=== PATIENT | female | born 1975 | race American Indian/Alaskan Native ===

== ENCOUNTER 2017-06-09 12:36 | Emergency (ER) | payer MEDICAID, OTHER ==
--- NOTE | 2017-06-09 13:14 | CR ---
Clinical history: 41-year-old female complaining of chest pain. Interpretation: Upright AP portable chest film unremarkable. (Less than optimal inspiratory effort this obese female with external equipment monitor phototypesetting leads) Normal cardiac silhouette without alveolar edema or dependent pleural effusion. No new lung mass, hilar lymphadenopathy or focal lobar pneumonia when compared to previous CT scan ch est August 2016. No atelectasis/collapse. No pneumothorax or free subdiaphragmatic air. CONCLUSION: No acute cardiopulmonary abnormality.
[2017-06-09 13:23] LABS: CHLORIDE,CL 103 mmol/L (101-111); SODIUM,NA 138 mmol/L (135-145)
[2017-06-09] MEDS ORDERED: GI Cocktail Oral Solution 30 ML PO ONE (13:41)
--- NOTE | 2017-06-09 14:02 | EDM.PDOC ---
ED HPI GENERAL MEDICAL PROBLEM - General Chief Complaint: Chest Pain Stated Complaint: CHEST PAIN,CAME BY AMBULANCE Time Seen by Provider: 06/09/17 12:42 Source of Information: Reports: Patient, EMS, EMS Notes Reviewed, RN, RN Notes Reviewed History Limitations: Reports: No Limitations - History of Present Illness INITIAL COMMENTS - FREE TEXT/NARRATIVE: Pt presents to the ER per [facility] from [facility]. She states she had chest pain that began last evening. She states this morning her left arm felt heavy and had some pain. Today she continues with the chest pain and went to the clinic to be evaluated. Provider from [facility] stated the patient has ST elevation, that she has received ASA 324 and Nitroglycerin. EMS states giving a second Nitro on the way to the hospital. Pt states a 4/10 sternal chest pain at this time. She denies radiation to the jaw. She denies fever or diarrhea. States she has had chills at times. She admits to a sore throat as she has started with a head cold recently. She states history of DM treated with insulin, as well as HTN treated with Losartan. Onset: Sudden Onset Date: 06/08/17 Duration: Intermittent Location: Reports: Chest Quality: Reports: Pressure Severity: Moderate Improves with: Reports: Medication (NITRO) Worsens with: Reports: None Associated Symptoms: Reports: No Other Symptoms Treatments INVENTORY MANAGEMENT SPECIALIST: Reports: Aspirin - Related Data Allergies Allergy/AdvReac Type Severity Reaction Status Date / Time Sulfa (Sulfonamide Allergy Hives Verified 07/15/16 17:39 Antibiotics) Home Meds: Home Meds Aspirin [Ecotrin] 1 tab PO DAILY 10/29/14 [History] Insulin Detemir [Levemir] 30 units SQ DAILY 10/29/14 [History] metFORMIN [Glucophage] 1 tab PO DAILY 10/29/14 [History] Past Medical History HEENT History: Reports: Impaired Vision Cardiovascular History: Reports: Hypertension Gastrointestinal History: Reports: Other (See Below) Genitourinary History: Reports: Diabetic Nephropathy 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: Musculoskeletal History: Reports: Other (See Below) Endocrine/Metabolic History: Reports: Diabetes, Type II - Infectious Disease History Infectious Disease History: Reports: Chicken Pox - Past Surgical History HEENT Surgical History: Reports: Detached Retina, Eye Surgery GI Surgical History: Reports: Cholecystectomy Social & Family History - Family History Family Medical History: Noncontributory - Tobacco Use Smoking Status *Q: Current Some Day Smoker Years of Tobacco use: 20 Packs/Tins Daily: 0.1 Second Hand Smoke Exposure: Yes - Caffeine Use Caffeine Use: Reports: Soda, Tea - Alcohol Use Days Per Week of Alcohol Use: 0 - Recreational Drug Use Recreational Drug Use: No - Living Situation & Occupation Living situation: Reports: Single Occupation: Unemployed ED ROS GENERAL - Review of Systems Review Of Systems: ROS reveals no pertinent complaints other than HPI. ED EXAM, GENERAL - Physical Exam Exam: See Below Exam Limited By: No Limitations General Appearance: Alert, WD/WN, No Apparent Distress Eye Exam: Bilateral Eye: EOMI, Normal Inspection Ears: Normal External Exam, Hearing Grossly Normal Nose: Normal Inspection Throat/Mouth: Normal Inspection, Normal Voice, No Airway Compromise Head: Atraumatic, Normocephalic Neck: Normal Inspection, Supple, Non-Tender, Full Range of Motion Respiratory/Chest: No Respiratory Distress, Lungs Clear, Normal Breath Sounds, No Accessory Muscle Use, Chest Non-Tender Cardiovascular: Normal Peripheral Pulses, Regular Rate, Rhythm, No Edema, No Gallop, No JVD, No Murmur, No Rub Peripheral Pulses: 2+: Brachial (L), Brachial (R) GI/Abdominal: Normal Bowel Sounds, Soft, Non-Tender, No Organomegaly, No Distention, No Abnormal Bruit, No Mass (Female) Exam: Deferred Rectal (Female) Exam: Deferred Back Exam: Normal Inspection, Full Range of Motion Extremities: Normal Inspection, Normal Range of Motion, Non-Tender, No Pedal Edema, Normal Capillary Refill Neurological: Alert, Oriented, Normal Cognition, No Motor/Sensory Deficits Psychiatric: Normal Affect, Normal Mood Skin Exam: Warm, Dry, Intact, Normal Color, No Rash Lymphatic: No Adenopathy EKG INTERPRETATION EKG Date: 06/09/17 Rhythm: NSR [place]: Normal P-Wave: Present QRS: Normal ST-T: Normal QT: Normal Comparison: NA - No Prior EKG Course - Vital Signs Last Recorded V/S: Last Vital Signs Temp 97.8 F 06/09/17 17:22 Pulse 80 06/09/17 17:22 Resp 15 06/09/17 17:22 BP 182/90 H 06/09/17 17:22 Pulse Ox 98 06/09/17 17:22 - Orders/Labs/Meds Orders: Active Orders 24 hr Category Date Time Status EKG Documentation Completion [RC] ROUTINE Care 06/09/17 16:45 Active EKG Documentation Completion [RC] STAT Care 06/09/17 12:32 Active CULTURE URINE [RM] Stat Lab 06/09/17 14:21 Uncollected Labs: Laboratory Tests 06/09/17 06/09/17 06/09/17 Range/Units 12:48 12:48 13:22 WBC 8.6 (5.0-10.0) 10^3/uL RBC 4.09 L (4.2-5.4) 10^6/uL Hgb 11.2 L (12.0-16.0) g/dL Hct 34.3 L (37.0-47.0) % MCV 83.9 (80-100) fL MCH 27.4 (27.0-34.0) pg MCHC 32.7 L (33.0-35.0) g/dL Plt Count 342 (150-450) 10^3/uL Neut % (Auto) 64.4 (42.2-75.2) % Lymph % (Auto) 28.9 (20.5-50.1) % [place] % (Auto) 5.4 (2-8) % Eos % (Auto) 1.1 (1.0-3.0) % Baso % (Auto) 0.2 (0.0-1.0) % Sodium 138 D (135-145) mmol/L Potassium 3.9 (3.6-5.0) mmol/L Chloride 103 (101-111) mmol/L Carbon Dioxide 25.0 (21.0-31.0) mmol/L Anion Gap 13.9 BUN 15 (7-18) mg/dL Creatinine 0.7 (0.6-1.3) mg/dL Est Cr Clr Drug Dosing 106.69 mL/min Estimated GFR (MDRD) > 60 BUN/Creatinine Ratio 21.42 Glucose 172 H (74-105) mg/dL Calcium 9.1 (8.4-10.2) mg/dl Total Bilirubin 0.3 (0.2-1.0) mg/dL AST 19 (10-42) IU/L ALT 16 (10-60) IU/L Alkaline Phosphatase 92 (42-121) IU/L Troponin I < 0.02 (0.00-0.02) ng/ml Total Protein 7.1 (6.7-8.2) g/dl Albumin 2.7 L (3.2-5.5) g/dl Globulin 4.4 Albumin/Globulin Ratio 0.61 Urine Color (YELLOW) Urine Appearance (CLEAR) Urine pH (5.0-9.0) Ur Specific [place] (1.005-1.030) Urine Protein (NEGATIVE) Urine Glucose (UA) (NEGATIVE) Urine Ketones (NEGATIVE) Urine Occult Blood (NEGATIVE) Urine Nitrite (NEGATIVE) Urine Bilirubin (NEGATIVE) Urine Urobilinogen (0.2-1.0) mg/dL Ur Leukocyte Esterase (NEGATIVE) Urine RBC /HPF Urine WBC (0-5/HPF) /HPF Ur Epithelial Cells /HPF Urine Bacteria (0-FEW/HPF) /HPF Urine HCG, Qual Negative Urine Opiates Screen (NEGATIVE) Ur Oxycodone Screen (NEGATIVE) Urine Methadone Screen (NEGATIVE) Ur Barbiturates Screen (NEGATIVE) U Tricyclic Antidepress (NEGATIVE) Ur Phencyclidine Scrn (NEGATIVE) Ur Amphetamine Screen (NEGATIVE) U Methamphetamines Scrn (NEGATIVE) Urine MDMA Screen (NEGATIVE) U Benzodiazepines Scrn (NEGATIVE) Urine Cocaine Screen (NEGATIVE) U Marijuana (THC) Screen (NEGATIVE) 06/09/17 06/09/17 06/09/17 Range/Units 13:22 13:22 17:10 WBC (5.0-10.0) 10^3/uL RBC (4.2-5.4) 10^6/uL Hgb (12.0-16.0) g/dL Hct (37.0-47.0) % MCV (80-100) fL MCH (27.0-34.0) pg MCHC (33.0-35.0) g/dL Plt Count (150-450) 10^3/uL Neut % (Auto) (42.2-75.2) % Lymph % (Auto) (20.5-50.1) % [place] % (Auto) (2-8) % Eos % (Auto) (1.0-3.0) % Baso % (Auto) (0.0-1.0) % Sodium (135-145) mmol/L Potassium (3.6-5.0) mmol/L Chloride (101-111) mmol/L Carbon Dioxide (21.0-31.0) mmol/L Anion Gap BUN (7-18) mg/dL Creatinine (0.6-1.3) mg/dL Est Cr Clr Drug Dosing mL/min Estimated GFR (MDRD) BUN/Creatinine Ratio Glucose (74-105) mg/dL Calcium (8.4-10.2) mg/dl Total Bilirubin (0.2-1.0) mg/dL AST (10-42) IU/L ALT (10-60) IU/L Alkaline Phosphatase (42-121) IU/L Troponin I < 0.02 (0.00-0.02) ng/ml Total Protein (6.7-8.2) g/dl Albumin (3.2-5.5) g/dl Globulin Albumin/Globulin Ratio Urine Color Light yellow (YELLOW) Urine Appearance Slightly cloudy (CLEAR) Urine pH 6.5 (5.0-9.0) Ur Specific [place] 1.015 (1.005-1.030) Urine Protein >=300 H (NEGATIVE) Urine Glucose (UA) 100 H (NEGATIVE) Urine Ketones Negative (NEGATIVE) Urine Occult Blood Small H (NEGATIVE) Urine Nitrite Negative (NEGATIVE) Urine Bilirubin Negative (NEGATIVE) Urine Urobilinogen 0.2 (0.2-1.0) mg/dL Ur Leukocyte Esterase Small H (NEGATIVE) Urine RBC 0-5 /HPF Urine WBC Semi-packed H (0-5/HPF) /HPF Ur Epithelial Cells Few /HPF Urine Bacteria Few (0-FEW/HPF) /HPF Urine HCG, Qual Urine Opiates Screen Negative (NEGATIVE) Ur Oxycodone Screen Negative (NEGATIVE) Urine Methadone Screen Negative (NEGATIVE) Ur Barbiturates Screen Negative (NEGATIVE) U Tricyclic Antidepress Negative (NEGATIVE) Ur Phencyclidine Scrn Negative (NEGATIVE) Ur Amphetamine Screen Negative (NEGATIVE) U Methamphetamines Scrn Negative (NEGATIVE) Urine MDMA Screen Negative (NEGATIVE) U Benzodiazepines Scrn Negative (NEGATIVE) Urine Cocaine Screen Negative (NEGATIVE) U Marijuana (THC) Screen Negative (NEGATIVE) Meds: Medications Discontinued Medications Generic Name Dose Route Start Last Admin Trade Name Freq PRN Reason Stop Dose Admin Al Hydroxide/Mg Hydroxide 30 ml 06/09/17 13:41 06/09/17 14:46 Gi Cocktail PO 06/09/17 13:42 30 ml ONETIME ONE Administration - Radiology Interpretation Free Text/Narrative:: Chest x-ray: No acute findings See rad report Departure - Departure Time of Disposition: 18:19 Disposition: Home, Self-Care 01 Clinical Impression: Non-cardiac chest pain Diabetes mellitus type II, uncontrolled Qualifiers: Diabetes mellitus complication status: with skin complications Diabetes mellitus complication detail: with other skin complication 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 insulin use: with terminal operations supervisor use Qualified Code(s): E11.628 - Type 2 diabetes mellitus with other skin complications Urinary tract infection Qualifiers: Urinary tract infection type: site unspecified Hematuria presence: with hematuria Qualified Code(s): N39.0 - Urinary tract infection, site not specified Instructions: Urinary Tract Infection, Adult, Nonspecific Chest Pain, Easy-to- Read Referrals: Jose Conde [Primary Care Provider] - Forms: ED Department Discharge Additional Instructions: RX: Macrobid x 5 days - My Orders Last 24 Hours: My Active Orders 06/09/17 12:32 EKG Documentation Completion [RC] STAT 06/09/17 14:21 CULTURE URINE [RM] Stat 06/09/17 16:45 EKG Documentation Completion [RC] ROUTINE - Assessment/Plan Last 24 Hours: My Active Orders 06/09/17 12:32 EKG Documentation Completion [RC] STAT 06/09/17 14:21 CULTURE URINE [RM] Stat 06/09/17 16:45 EKG Documentation Completion [RC] ROUTINE
[2017-06-09 17:23] VITALS: BP 182/90
--- NOTE | 2017-06-18 13:21 | EKG ---
06/09/2017 - BEN JUAREZ - TIME: 12:40 FINDINGS: EKG per my reading shows sinus rhythm at the rate of 81. [facility] /[id number]
--- NOTE | 2017-06-18 13:24 | EKG ---
06/09/2017 - BEN JUAREZBEAR - TIME: 1145 hours. EKG per my reading shows sinus rhythm at the rate of 82. [facility] /[id number]
== END 2017-06-09 19:00 | disposition home or self-care (01) ==
LOC: DL.ED 12:36 → EEVIPCON 12:36 → DL.ED 19:00
DX: R07.89 Other chest pain (principal); E11.628 Type 2 diabetes mellitus with other skin complications; N39.0 Urinary tract infection, site not specified; E11.21 Type 2 diabetes mellitus with diabetic nephropathy; I10 Essential (primary) hypertension; F17.210 Nicotine dependence, cigarettes, uncomplicated; Z79.4 Long term (current) use of insulin; Z79.82 Long term (current) use of aspirin; Z88.2 Allergy status to sulfonamides
CPT/HCPCS: 36415; 71010; 80053; 80305; 81001; 81025; 84484; 85025; 99285; A9270

== ENCOUNTER 2017-07-23 10:37 | Emergency (ER) | payer MEDICAID, OTHER ==
--- NOTE | 2017-07-23 10:53 | EDM.PDOC ---
ED HPI GENERAL MEDICAL PROBLEM - General Chief Complaint: Lower Extremity Injury/Pain Stated Complaint: CAME BY AMBULANCE Time Seen by Provider: 07/23/17 10:51 Source of Information: Reports: Patient, EMS, Old Records, RN, RN Notes Reviewed History Limitations: Reports: No Limitations - History of Present Illness INITIAL COMMENTS - FREE TEXT/NARRATIVE: Arrives by ambulance with c/o foot/heel pain. Today she felt a pop in the achilles area of the heel followed by immediate severe pain. Pt's heard a loud audible pop. Pt states she had just stepped out of the car and took about 3 steps when the pain occurred. She had seen a second time worker at [facility] last week and received a steroid injection in the hind foot for plantar fasciitis. Onset: Today, Sudden Duration: Constant Location: Reports: Lower Extremity, Left Quality: Reports: Ache Severity: Severe Improves with: Reports: None Worsens with: Reports: Movement (wt bearing/walking) Associated Symptoms: Reports: No Other Symptoms Left Feet Pain Score (Numeric/FACES): 9 - Related Data Allergies Allergy/AdvReac Type Severity Reaction Status Date / Time Sulfa (Sulfonamide Allergy Hives Verified 07/15/16 17:39 Antibiotics) Home Meds: Home Meds Aspirin [Ecotrin] 1 tab PO DAILY 10/29/14 [History] Insulin Detemir [Levemir] 50 units SQ DAILY 10/29/14 [History] metFORMIN [Glucophage] 1 tab PO DAILY 10/29/14 [History] Gabapentin [Neurontin] 1 tab PO TID 07/23/17 [History] Losartan [Cozaar] 1 tab PO DAILY 07/23/17 [History] Saxagliptin HCl [Onglyza] 1 tab PO DAILY 07/23/17 [History] atorvaSTATin [Lipitor] 1 tab PO DAILY 07/23/17 [History] Past Medical History HEENT History: Reports: Impaired Vision Cardiovascular History: Reports: Hypertension Gastrointestinal History: Reports: Other (See Below) Genitourinary History: Reports: Diabetic Nephropathy 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: Musculoskeletal History: Reports: Other (See Below) Endocrine/Metabolic History: Reports: Diabetes, Type II - Infectious Disease History Infectious Disease History: Reports: Chicken Pox - Past Surgical History HEENT Surgical History: Reports: Detached Retina, Eye Surgery GI Surgical History: Reports: Cholecystectomy Social & Family History - Family History Family Medical History: Noncontributory - Tobacco Use Smoking Status *Q: Current Some Day Smoker Years of Tobacco use: 20 Packs/Tins Daily: 0.1 Second Hand Smoke Exposure: Yes - Caffeine Use Caffeine Use: Reports: Soda, Tea - Alcohol Use Days Per Week of Alcohol Use: 0 - Recreational Drug Use Recreational Drug Use: No - Living Situation & Occupation Living situation: Reports: Single Occupation: Unemployed Review of Systems - Review of Systems Review Of Systems: ROS reveals no pertinent complaints other than HPI. ED EXAM, GENERAL - Physical Exam Exam: See Below Exam Limited By: No Limitations General Appearance: Alert, WD/WN, No Apparent Distress Throat/Mouth: Normal Inspection Head: Atraumatic, Normocephalic Neck: Normal Inspection Respiratory/Chest: No Respiratory Distress Cardiovascular: Regular Rate, Rhythm, No Edema Extremities: No Pedal Edema, Normal Capillary Refill, Limited Range of Motion ( left ankle with acute tenderness at left posterior calf to the heel) Neurological: Alert, Oriented, No Motor/Sensory Deficits Psychiatric: Normal Affect, Normal Mood Skin Exam: Warm, Dry, Intact, Normal Color, No Rash Course - Vital Signs Last Recorded V/S: Last Vital Signs Temp 36.3 C 07/23/17 12:29 Pulse 77 07/23/17 12:29 Resp 18 07/23/17 12:29 BP 159/80 H 07/23/17 12:29 Pulse Ox 94 L 07/23/17 12:29 - Orders/Labs/Meds Orders: Active Orders 24 hr Category Date Time Status Ice Pack [Ice Therapy] [OM.PC] Routine Oth 07/23/17 11:05 Ordered Labs: Laboratory Tests 07/23/17 07/23/17 Range/Units 11:10 12:19 POC Glucose 172 H (70-105) mg/dl Urine HCG, Qual Negative Meds: Medications Discontinued Medications Generic Name Dose Route Start Last Admin Trade Name Freq PRN Reason Stop Dose Admin Hydrocodone Bitart/Acetaminophen 1 tab 07/23/17 11:05 07/23/17 11:15 [place] 325-10 Mg PO 07/23/17 11:06 1 tab ONETIME ONE Administration - Radiology Interpretation Free Text/Narrative:: Xray left ankle: avulsion fx of posterior heel suspicious for achilles rupture; see Rad. report. CT left lower leg: similar finding to xray; see Rad. report. - Re-Assessments/Exams Free Text/Narrative Re-Assessment/Exam: 07/23/17 15:[address] Magaña via [facility] call. He advises anterior lower ext. splint with maximal plantar flexion and bulky soft padding, pt to be non-wt bearing, and f/u in clinic with him on Thursday07/27/17. Departure - Departure Time of Disposition: 15:05 Disposition: Home, Self-Care 01 Condition: Good Clinical Impression: Rupture of left Achilles tendon Qualifiers: Encounter type: initial encounter Qualified Code(s): S86.012A - Strain of left Achilles tendon, initial encounter Closed displaced fracture of left calcaneus Qualifiers: Encounter type: initial encounter Calcaneus location: body Qualified Code(s): S92.012A - Displaced fracture of body of left calcaneus, initial encounter for closed fracture - Discharge Information Instructions: Cast or Splint Care, [id number], Pain Medicine Instructions, [id number], Complete Achilles Tendon Rupture, Avulsion Fracture of the Foot Forms: ED Department Discharge Additional Instructions: Rest, and elevate left lower leg. Do not remove splint. No weight bearing on left foot, use crutches. Rx: Hydrocodone APAP 5mg/325mg *Do not drive while under the influence of this medication. Call [facility] [place] to schedule an appointment with Dr. Magaña for Thursday, Jul.27. Return to ER if any further problems. - My Orders Last 24 Hours: My Active Orders 07/23/17 11:05 Ice Pack [Ice Therapy] [OM.PC] Routine - Assessment/Plan Last 24 Hours: My Active Orders 07/23/17 11:05 Ice Pack [Ice Therapy] [OM.PC] Routine
[2017-07-23] MEDS ORDERED: Acetaminophen/HYDROcodone 325-10 MG Tab PO ONE (11:05)
--- NOTE | 2017-07-23 12:00 | CR ---
Clinical history: 41-year-old female posterior ankle pain (loud "pop" stepping out of car). Interpretation: Abnormal. Acute posterior calcaneal fracture. AP lateral plain films of the left ankle/foot confirm large bone fragment avulsed off the posterior c alcaneus and retracted proximally (overlying soft tissue swelling Achilles tendon). No associated fractures of the tib/fib or disruption of the tibiotalar mortise joint. No foreign bodies.
--- NOTE | 2017-07-23 14:11 | CT ---
Clinical history: 41-year-old female received a "plantar fascial injection" one week ago and now expe rienced severe pain with an audible "pop" posterior left heel, stepping out of car. Plain film eviden ce posterior calcaneal fracture left foot. Scan technique: Volume acquisition of data unenhanced CT scan of the lower extremities, both ankles a nd feet obtained while the patient was lying supine on the Siemens multi slice CT scanner [place], [place]. All data archived in the PAC system for storage, reformatting a nd study. Interpretation: 1. Achilles tendon appears to be intact and attached (unchanged when compared to contralateral normal heel), but.... 2. *Large bone fragment avulsed posteriorly (upper half of apophysis) off the os calcis and retracted approximately 1.5 cm cephalad. Donor site posteriorly body of the os calcis evident. 3. Proximal retraction (lateral images) but near anatomic alignment of this large fragment on the cor onal and AP images. 4. No sign of other fracture or dislocation of either foot, ankle or distal lower extremity. No forei gn bodies. No heel spurs.
[2017-07-23 15:17] VITALS: BP 163/92
== END 2017-07-23 15:37 | disposition home or self-care (01) ==
LOC: DL.ED 10:37
DX: S92.012A Displaced fracture of body of left calcaneus, initial encounter for closed fracture (principal); S86.012A Strain of left Achilles tendon, initial encounter; E11.21 Type 2 diabetes mellitus with diabetic nephropathy; I10 Essential (primary) hypertension; F17.210 Nicotine dependence, cigarettes, uncomplicated; Z79.4 Long term (current) use of insulin; Z79.82 Long term (current) use of aspirin; Z79.899 Other long term (current) drug therapy; Z88.2 Allergy status to sulfonamides; X50.9XXA Other and unspecified overexertion or strenuous movements or postures, initial encounter
CPT/HCPCS: 73600; 73700; 81025; 82962; 99284; A9270

== ENCOUNTER 2018-09-03 23:40 | Emergency (ER) | payer MEDICAID, OTHER ==
[2018-09-03] MEDS ORDERED: Sodium Chloride 0.9% 1,000 ML IV ONE (23:49)
[2018-09-03] MEDS ORDERED: Ondansetron 4 MG/2 ML SDV IV ONE (23:50)
--- NOTE | 2018-09-04 00:09 | EDM.PDOC ---
"ED HPI GENERAL MEDICAL PROBLEM - General Chief Complaint: General Stated Complaint: FLU Time Seen by Provider: 09/03/18 23:50 Source of Information: Reports: Patient History Limitations: Reports: No Limitations - History of Present Illness INITIAL COMMENTS - FREE TEXT/NARRATIVE: Chills and body aches since Thursday. Vomiting past 2 days, Unable to keep anything down today. loose watery stool tonight. No othre family members ill. Been in bed past 2 days. Left lower leg more swollen and sore on ankle where sock rubs. Remote hx ruptured achilles and some swelling usual. Blood sugars usual around 230. Treatments LEGAL INVESTIGATOR: Reports: Acetaminophen Left Lower Leg Pain Score (Numeric/FACES): 6 - Related Data Allergies Allergy/AdvReac Type Severity Reaction Status Date / Time Sulfa (Sulfonamide Allergy Hives Verified 09/03/18 23:54 Antibiotics) Home Meds: Home Meds Aspirin [Ecotrin] 1 tab PO DAILY 10/29/14 [History] Insulin Detemir [Levemir] 50 units SQ DAILY 10/29/14 [History] metFORMIN [Glucophage] 1 tab PO DAILY 10/29/14 [History] Gabapentin [Neurontin] 1 tab PO TID 07/23/17 [History] Losartan [Cozaar] 1 tab PO DAILY 07/23/17 [History] Saxagliptin HCl [Onglyza] 1 tab PO DAILY 07/23/17 [History] atorvaSTATin [Lipitor] 1 tab PO DAILY 07/23/17 [History] Past Medical History HEENT History: Reports: Cataract, Impaired Vision Other HEENT History: WEARS GLASSES Cardiovascular History: Reports: High Cholesterol, Hypertension Respiratory History: Reports: None Gastrointestinal History: Reports: GERD Genitourinary History: Reports: Chronic Renal Insuffiency, Diabetic Nephropathy PHYSICIAN OFFICE CLIN ASST History: Reports: Musculoskeletal History: Reports: None Neurological History: Reports: None Psychiatric History: Reports: None Endocrine/Metabolic History: Reports: Diabetes, Type II Hematologic History: Reports: Anemia Immunologic History: Reports: None Oncologic (Cancer) History: Reports: None Dermatologic History: Reports: None - Infectious Disease History Infectious Disease History: Reports: Chicken Pox, MRSA - Past Surgical History HEENT Surgical History: Reports: Detached Retina, Eye Surgery GI Surgical History: Reports: Cholecystectomy Female Surgical History: Reports: None Social & Family History - Family History Family Medical History: Noncontributory - Tobacco Use Smoking Status *Q: Current Some Day Smoker Years of Tobacco use: 20 Packs/Tins Daily: 3 - Caffeine Use Caffeine Use: Reports: Soda - Recreational Drug Use Recreational Drug Use: No - Living Situation & Occupation Living situation: Reports: Single Occupation: Unemployed ED ROS GENERAL - Review of Systems Review Of Systems: ROS reveals no pertinent complaints other than HPI. Constitutional: Reports: Chills, Malaise, Weakness HEENT: Reports: No Symptoms Respiratory: Reports: No Symptoms Cardiovascular: Reports: No Symptoms Endocrine: Reports: High Glucose GI/Abdominal: Reports: Diarrhea (x1), Decreased Appetite, Nausea, Vomiting : Reports: No Symptoms, Other (current menses) Musculoskeletal: Reports: Leg Pain (left lower) Skin: Reports: No Symptoms, Erythema, Wound (left lateral ankle) Neurological: Reports: No Symptoms ED EXAM, GENERAL - Physical Exam Exam: See Below Exam Limited By: No Limitations General Appearance: Alert, Moderate Distress Eye Exam: Bilateral Eye: EOMI Ears: Normal External Exam, Hearing Grossly Normal, Normal TMs Nose: Normal Inspection Throat/Mouth: Normal Lips, Normal Oropharynx, Other (parched mucus membranes) Head: Atraumatic, Normocephalic Neck: Normal Inspection Respiratory/Chest: No Respiratory Distress, Lungs Clear, Decreased Breath Sounds. No: Crackles, Rales, Rhonchi, Wheezing Cardiovascular: Normal Peripheral Pulses, Regular Rate, Rhythm. No: No Edema GI/Abdominal: Normal Bowel Sounds, Soft, Non-Tender Back Exam: Full Range of Motion, Paraspinal Tenderness, Vertebral Tenderness Extremities: Normal Inspection, Normal Range of Motion Neurological: Alert, Oriented, CN II-XII Intact, Normal Cognition, No Motor/ Sensory Deficits Psychiatric: Normal Affect Skin Exam: Warm, Dry, Intact, Normal Color Course - Vital Signs Last Recorded V/S: Last Vital Signs Temp 98.6 F 09/04/18 02:55 Pulse 96 09/04/18 02:55 Resp 18 09/04/18 02:55 BP 138/82 09/04/18 02:55 Pulse Ox 98 09/04/18 02:55 - Orders/Labs/Meds Orders: Active Orders 24 hr Category Date Time Status Blood Glucose Check, Bedside [RC] ONETIME Care 09/03/18 23:48 Active Glucose [Blood Glucose Check, Bedside] [RC] ONETIME Care 09/04/18 01:34 Active CXR [Chest 1V Frontal] [CR] Urgent Exams 09/04/18 00:32 Taken CULTURE BLOOD [BC] Stat Lab 09/04/18 00:47 Received Sodium Chloride 0.9% [Normal Saline] 1,000 ml Med 09/04/18 03:53 Ordered IV .BOLUS fentaNYL [Sublimaze] Med 09/04/18 05:03 Once 25 mcg IVPUSH ONETIME ONE Medication Orders Fentanyl (Sublimaze) 25 mcg IVPUSH ONETIME ONE Stop: 09/04/18 05:04 Sodium Chloride (Normal Saline) 1,000 mls @ 125 mls/hr IV .BOLUS ONE Stop: 09/04/18 11:52 Last Admin: 09/04/18 04:02 Dose: 125 mls/hr Labs: Laboratory Tests 09/03/18 09/03/18 09/03/18 Range/Units 23:46 23:59 23:59 WBC 16.4 H (5.0-10.0) 10^3/uL RBC 3.99 L (4.2-5.4) 10^6/uL Hgb 11.1 L (12.0-16.0) g/dL Hct 32.5 L (37.0-47.0) % MCV 81.5 (80-100) fL MCH 27.8 (27.0-34.0) pg MCHC 34.2 (33.0-35.0) g/dL Plt Count 246 D (150-450) 10^3/uL Neut % (Auto) 91.1 H (42.2-75.2) % Lymph % (Auto) 5.9 L (20.5-50.1) % [place] % (Auto) 2.9 (2-8) % Eos % (Auto) 0.0 L (1.0-3.0) % Baso % (Auto) 0.1 (0.0-1.0) % D-Dimer, Quantitative (0-400) ng/mL Sodium 129 L (135-145) mmol/L Potassium 3.3 L (3.6-5.0) mmol/L Chloride 95 L (101-111) mmol/L Carbon Dioxide 22.0 (21.0-31.0) mmol/L Anion Gap 15.3 BUN 27 H (7-18) mg/dL Creatinine 1.2 (0.6-1.3) mg/dL Est Cr Clr Drug Dosing 63.82 mL/min Estimated GFR (MDRD) 49 BUN/Creatinine Ratio 22.50 Glucose 318 H (74-105) mg/dL POC Glucose 313 H (70-105) mg/dl Lactic Acid (0.5-2.2) mmol/L Calcium 7.7 L (8.4-10.2) mg/dl Total Bilirubin 0.6 (0.2-1.0) mg/dL AST 34 (10-42) IU/L ALT 31 (10-60) IU/L Alkaline Phosphatase 101 (42-121) IU/L Total Protein 6.2 L (6.7-8.2) g/dl Albumin 1.6 L (3.2-5.5) g/dl Globulin 4.6 Albumin/Globulin Ratio 0.35 Amylase 17 L (28-100) U/L Lipase 23 (22-51) U/L HCG, Qual Urine Color (YELLOW) Urine Appearance (CLEAR) Urine pH (5.0-9.0) Ur Specific [place] (1.005-1.030) Urine Protein (NEGATIVE) Urine Glucose (UA) (NEGATIVE) Urine Ketones (NEGATIVE) Urine Occult Blood (NEGATIVE) Urine Nitrite (NEGATIVE) Urine Bilirubin (NEGATIVE) Urine Urobilinogen (0.2-1.0) mg/dL Ur Leukocyte Esterase (NEGATIVE) Urine RBC /HPF Urine WBC (0-5/HPF) /HPF Ur Epithelial Cells /HPF Amorphous Sediment (0/HPF) /HPF Urine Bacteria (0-FEW/HPF) /HPF Urine Mucus /LPF Ketones 09/03/18 09/04/18 09/04/18 Range/Units 23:59 01:25 01:25 WBC (5.0-10.0) 10^3/uL RBC (4.2-5.4) 10^6/uL Hgb (12.0-16.0) g/dL Hct (37.0-47.0) % MCV (80-100) fL MCH (27.0-34.0) pg MCHC (33.0-35.0) g/dL Plt Count (150-450) 10^3/uL Neut % (Auto) (42.2-75.2) % Lymph % (Auto) (20.5-50.1) % [place] % (Auto) (2-8) % Eos % (Auto) (1.0-3.0) % Baso % (Auto) (0.0-1.0) % D-Dimer, Quantitative 1650 H (0-400) ng/mL Sodium (135-145) mmol/L Potassium (3.6-5.0) mmol/L Chloride (101-111) mmol/L Carbon Dioxide (21.0-31.0) mmol/L Anion Gap BUN (7-18) mg/dL Creatinine (0.6-1.3) mg/dL Est Cr Clr Drug Dosing mL/min Estimated GFR (MDRD) BUN/Creatinine Ratio Glucose (74-105) mg/dL POC Glucose (70-105) mg/dl Lactic Acid 1.1 (0.5-2.2) mmol/L Calcium (8.4-10.2) mg/dl Total Bilirubin (0.2-1.0) mg/dL AST (10-42) IU/L ALT (10-60) IU/L Alkaline Phosphatase (42-121) IU/L Total Protein (6.7-8.2) g/dl Albumin (3.2-5.5) g/dl Globulin Albumin/Globulin Ratio Amylase (28-100) U/L Lipase (22-51) U/L HCG, Qual Negative Urine Color (YELLOW) Urine Appearance (CLEAR) Urine pH (5.0-9.0) Ur Specific [place] (1.005-1.030) Urine Protein (NEGATIVE) Urine Glucose (UA) (NEGATIVE) Urine Ketones (NEGATIVE) Urine Occult Blood (NEGATIVE) Urine Nitrite (NEGATIVE) Urine Bilirubin (NEGATIVE) Urine Urobilinogen (0.2-1.0) mg/dL Ur Leukocyte Esterase (NEGATIVE) Urine RBC /HPF Urine WBC (0-5/HPF) /HPF Ur Epithelial Cells /HPF Amorphous Sediment (0/HPF) /HPF Urine Bacteria (0-FEW/HPF) /HPF Urine Mucus /LPF Ketones Negative 09/04/18 09/04/18 Range/Units 02:58 04:33 WBC (5.0-10.0) 10^3/uL RBC (4.2-5.4) 10^6/uL Hgb (12.0-16.0) g/dL Hct (37.0-47.0) % MCV (80-100) fL MCH (27.0-34.0) pg MCHC (33.0-35.0) g/dL Plt Count (150-450) 10^3/uL Neut % (Auto) (42.2-75.2) % Lymph % (Auto) (20.5-50.1) % [place] % (Auto) (2-8) % Eos % (Auto) (1.0-3.0) % Baso % (Auto) (0.0-1.0) % D-Dimer, Quantitative (0-400) ng/mL Sodium (135-145) mmol/L Potassium (3.6-5.0) mmol/L Chloride (101-111) mmol/L Carbon Dioxide (21.0-31.0) mmol/L Anion Gap BUN (7-18) mg/dL Creatinine (0.6-1.3) mg/dL Est Cr Clr Drug Dosing mL/min Estimated GFR (MDRD) BUN/Creatinine Ratio Glucose (74-105) mg/dL POC Glucose 185 H (70-105) mg/dl Lactic Acid (0.5-2.2) mmol/L Calcium (8.4-10.2) mg/dl Total Bilirubin (0.2-1.0) mg/dL AST (10-42) IU/L ALT (10-60) IU/L Alkaline Phosphatase (42-121) IU/L Total Protein (6.7-8.2) g/dl Albumin (3.2-5.5) g/dl Globulin Albumin/Globulin Ratio Amylase (28-100) U/L Lipase (22-51) U/L HCG, Qual Urine Color Red (YELLOW) Urine Appearance Turbid (CLEAR) Urine pH 6.5 (5.0-9.0) Ur Specific [place] 1.020 (1.005-1.030) Urine Protein >=300 H (NEGATIVE) Urine Glucose (UA) 500 H (NEGATIVE) Urine Ketones Trace H (NEGATIVE) Urine Occult Blood Large H (NEGATIVE) Urine Nitrite Negative (NEGATIVE) Urine Bilirubin Negative (NEGATIVE) Urine Urobilinogen 0.2 (0.2-1.0) mg/dL Ur Leukocyte Esterase Negative (NEGATIVE) Urine RBC >100 H /HPF Urine WBC 0-5 (0-5/HPF) /HPF Ur Epithelial Cells Few /HPF Amorphous Sediment Few (0/HPF) /HPF Urine Bacteria Rare (0-FEW/HPF) /HPF Urine Mucus Rare /LPF Ketones Meds: Medications Generic Name Dose Route Start Last Admin Trade Name Phucq PRN Reason Stop Dose Admin Fentanyl 25 mcg 09/04/18 05:03 Sublimaze IVPUSH 09/04/18 05:04 ONETIME ONE Sodium Chloride 1,000 mls @ 125 mls/hr 09/04/18 03:53 09/04/18 04:02 Normal Saline IV 09/04/18 11:52 125 mls/hr .BOLUS ONE Administration Discontinued Medications Generic Name Dose Route Start Last Admin Trade Name Freq PRN Reason Stop Dose Admin Sodium Chloride 1,000 mls @ 999 mls/hr 09/03/18 23:49 09/04/18 00:00 Normal Saline IV 09/04/18 00:49 999 mls/hr .BOLUS ONE Administration Potassium Chloride 10 meq/ 100 mls @ 100 mls/hr 09/04/18 00:59 09/04/18 01:18 Premix IV 09/04/18 01:58 100 mls/hr ONETIME ONE Administration Sodium Chloride 1,000 mls @ 500 mls/hr 09/04/18 01:13 09/04/18 01:18 Normal Saline IV 09/04/18 03:12 500 mls/hr .BOLUS ONE Administration Piperacillin Sod/Tazobactam 100 mls @ 200 mls/hr 09/04/18 01:59 09/04/18 03: 53 Sod 3.375 gm/ Sodium Chloride IV 09/04/18 02:28 Not Given ONETIME ONE Piperacillin Sod/Tazobactam 100 mls @ 200 mls/hr 09/04/18 02:04 09/04/18 02: 49 Sod 3.375 gm/ Sodium Chloride IV 09/04/18 02:33 200 mls/hr ONETIME ONE Administration Insulin Human Regular 10 unit 09/04/18 00:58 09/04/18 01:16 Humulin R IV 09/04/18 00:59 10 units ONETIME ONE Administration Iopamidol 100 ml 09/04/18 01:19 09/04/18 02:04 [id number] (76%) IVPUSH 09/04/18 01:20 100 ml ONETIME ONE Administration Morphine Sulfate 2 mg 09/04/18 02:26 09/04/18 02:42 Morphine IVPUSH 09/04/18 02:27 2 mg ONETIME ONE Administration Ondansetron HCl 4 mg 09/03/18 23:50 09/03/18 23:59 Zofran IV 09/03/18 23:51 4 mg ONETIME ONE Administration Ondansetron HCl 4 mg 09/04/18 02:26 09/04/18 02:41 Zofran IV 09/04/18 02:27 4 mg ONETIME ONE Administration - Radiology Interpretation Free Text/Narrative:: [facility] Final Radiology Report Call: [phone] assistance Online chat: [email or web address] Name: BEN JUAREZ Age: 42Years F Date: 09/04/2018 SSN: -- : [id number] Study: CT CHEST W Requesting Physician: AZALEA KHALIL Images: [id number] Addl Studies: Provided Clinical History: Contrast: With Contrast Medium: [id number] Contrast Amount: 75 mL Contrast Method: rac Page 1 of 2 EXAM: CT Chest With Contrast EXAM DATE/TIME: 09/04/2018 2:19 AM CLINICAL HISTORY: 42 years old, female; Signs and symptoms; Cough and other: D-dimer 1670--left leg swelling TECHNIQUE: Axial computed tomography images of the chest with intravenous contrast. All CT scans at this facility use at least one of these dose optimization techniques: automated exposure control; mA and/or kV adjustment per patient size (includes targeted exams where dose is matched to clinical indication); or iterative reconstruction. Coronal and sagittal reformatted images were created and reviewed. CONTRAST: 75 ml of [id number] administered intravenously. COMPARISON: CT Chest w Cont 08/31/2016 5:38 PM FINDINGS: Lungs: Unremarkable. No consolidation. No masses. Pleural space: Unremarkable. No pneumothorax. No pleural effusion. Heart: unremarkable. No pericardial effusion. Aorta: unremarkablel. No significant aortic dilitation. Lymph nodes: Unremarkable. No enlarged lymph nodes. Bones/joints: Unremarkable. No acute fracture. Soft tissues: Right chest subcutaneous lesion is likely a sebaceous cyst, unchanged. BEN JUAREZ | Final Radiology Report CONFIDENTIALITY STATEMENT This report is intended only for use by the referring physician, and only in accordance with law. If you received this in error, call [phone]. Page 2 of 2 IMPRESSION: No acute findings. No pulmonary emboli. Thank you for allowing us to participate in the care of your patient. Dictated and Authenticated by: Ja Kendrick MD SSN: -- : [id number] Study: XR CHEST 1 VIEW Requesting Physician: AZALEA KHALIL Images: 1 Addl Studies: Provided Clinical History: Contrast: Contrast Medium: Contrast Amount: Contrast Method: CONFIDENTIALITY STATEMENT This report is intended only for use by the referring physician, and only in accordance with law. If you received this in error, call [phone]. Page 1 of 1 EXAM: XR Chest, 1 View EXAM DATE/TIME: 09/04/2018 12:41 AM CLINICAL HISTORY: 42 years old, female; Signs and symptoms; Cough TECHNIQUE: XR of the chest, 1 view. COMPARISON: CR Chest 1V Frontal 06/09/2017 1:03 PM FINDINGS: Lungs: Unremarkable. No consolidation. Pleural space: Unremarkable. No pleural effusion. No pneumothorax. Heart/Mediastinum: Unremarkable. No cardiomegaly. Bones/joints: Age appropriate. IMPRESSION: 1. No active disease of the chest. 2. No significant interval change when compared to the CR Chest 1V Frontal 06/09 1:03 PM. Thank you for allowing us to participate in the care of your patient. Dictated and Authenticated by: Nadir Kulkarni MD 09/04/2018 1:06 AM Central Time ([place] & [place]) - Re-Assessments/Exams Free Text/Narrative Re-Assessment/Exam: 09/04/18 04:11 Light dozing, arouses easily to voice. Hadache left side of head. No visual changes. Nausea improved Repeat glucometer improved. Tolerating few sips ice. Dr Richardson asccepting of patient in transfer. Tx via [facility] Departure - Departure Time of Disposition: 05:06 Disposition: DC/Tfer to Acute Hospital 02 Condition: Good Clinical Impression: Hypokalemia, Hyperglycemia, Cellulitis of left anterior lower leg, Hyponatremia , Diabetes mellitus, Dehydration Diabetic ulcer of left foot Qualifiers: Diabetic foot ulcer location: unspecified part of foot Diabetes mellitus type: type 2 Non-pressure ulcer stage: limited to breakdown of skin Qualified Code(s) : E11.621 - Type 2 diabetes mellitus with foot ulcer - Discharge Information *PRESCRIPTION DRUG MONITORING PROGRAM REVIEWED*: No Forms: ED Department Discharge - My Orders Last 24 Hours: My Active Orders 09/03/18 23:48 Blood Glucose Check, Bedside [RC] ONETIME 09/04/18 00:32 CXR [Chest 1V Frontal] [CR] Urgent 09/04/18 00:47 CULTURE BLOOD [BC] Stat 09/04/18 01:34 Glucose [Blood Glucose Check, Bedside] [RC] ONETIME 09/04/18 03:53 Sodium Chloride 0.9% [Normal Saline] 1,000 ml IV .BOLUS 09/04/18 05:03 fentaNYL [Sublimaze] 25 mcg IVPUSH ONETIME ONE - Assessment/Plan Last 24 Hours: My Active Orders 09/03/18 23:48 Blood Glucose Check, Bedside [RC] ONETIME 09/04/18 00:32 CXR [Chest 1V Frontal] [CR] Urgent 09/04/18 00:47 CULTURE BLOOD [BC] Stat 09/04/18 01:34 Glucose [Blood Glucose Check, Bedside] [RC] ONETIME 09/04/18 03:53 Sodium Chloride 0.9% [Normal Saline] 1,000 ml IV .BOLUS 09/04/18 05:03 fentaNYL [Sublimaze] 25 mcg IVPUSH ONETIME ONE"
[2018-09-04 00:26] LABS: ANION GAP 15.3
[2018-09-04] MEDS ORDERED: Insulin Regular, Human 100 Units/ML 3 ML Vial IV ONE (00:58)
[2018-09-04] MEDS ORDERED: Potassium Chloride 10 MEQ in Premix Bag 1 BAG IV ONE (00:59)
[2018-09-04] MEDS ORDERED: Sodium Chloride 0.9% 1,000 ML IV ONE ×2 (01:13→03:53)
[2018-09-04] MEDS ORDERED: Iopamidol 755 Mg/ML 100 ML Bottle IVPUSH ONE (01:19)
[2018-09-04] MEDS ORDERED: Piperacillin/Tazobactam 3.375 GM in Sodium Chloride 0.9% 100 ML IV ONE ×2 (01:59→02:04)
[2018-09-04] MEDS ORDERED: Ondansetron 4 MG/2 ML SDV IV ONE (02:26)
[2018-09-04] MEDS ORDERED: Morphine 2 MG/ML Syringe IVPUSH ONE (02:26)
[2018-09-04] MEDS ORDERED: fentaNYL 100 MCG/2 ML SDV IVPUSH ONE (05:03)
[2018-09-04 05:06] VITALS: BP 130/69
== END 2018-09-04 05:13 ==
LOC: DL.ED 23:40
DX: L03.116 Cellulitis of left lower limb (principal); E11.621 Type 2 diabetes mellitus with foot ulcer; L97.529 Non-pressure chronic ulcer of other part of left foot with unspecified severity; E87.6 Hypokalemia; E78.00 Pure hypercholesterolemia, unspecified; I10 Essential (primary) hypertension; E11.65 Type 2 diabetes mellitus with hyperglycemia; E87.1 Hypo-osmolality and hyponatremia; E86.0 Dehydration; K21.9 Gastro-esophageal reflux disease without esophagitis; F17.210 Nicotine dependence, cigarettes, uncomplicated; Z88.2 Allergy status to sulfonamides; Z79.82 Long term (current) use of aspirin; Z79.899 Other long term (current) drug therapy; Z79.4 Long term (current) use of insulin
CPT/HCPCS: 36415; 71045; 71260; 80053; 81001; 82009; 82150; 82962; 83605; 83690; 84703; 85025; 85379; 87040; 87804; 96365; 96366; 96368; 96375; 96376; 99284; J1815-GY; J2270; J2405; J2543; J3010; J3480; J7030; J7050; Q9967

== ENCOUNTER 2018-12-03 15:18 | Observation (INO) | payer MEDICAID, OTHER ==
[2018-12-03] MEDS ORDERED: Sodium Chloride 0.9% 10 ML Syringe FLUSH PRN (15:29)
[2018-12-03 16:09] LABS: ANION GAP 12.8; CHLORIDE,CL 101 mmol/L (101-111); SODIUM,NA 135 mmol/L (135-145)
[2018-12-03] MEDS ORDERED: NS + KCl 20mEq/L 1,000 ML IV SCH ×2 (16:30→18:15)
[2018-12-03] MEDS ORDERED: Levofloxacin/Dextrose 5%-Water 500 MG in Premix Bag 1 BAG IV SCH (18:00)
[2018-12-03] MEDS ORDERED: Ondansetron 4 MG Tab.DIS PO PRN (18:09)
[2018-12-03] MEDS ORDERED: Acetaminophen 325 MG Tab PO PRN (18:09)
[2018-12-03] MEDS ORDERED: Magnesium Hydroxide 400 MG/5 ML Susp 30 ML Cup PO PRN (18:09)
[2018-12-03] MEDS ORDERED: Polyethylene Glycol 3350 Powder 17 GM Packet PO PRN (18:09)
[2018-12-03] MEDS ORDERED: 50% Dextrose in Water 50 ML Syringe IVPUSH PRN (18:12)
[2018-12-03] MEDS: Potassium Chloride 10 MEQ Tab.ER PO SCH (19:06)
[2018-12-03] MEDS ORDERED: Insulin Glarg,Human.Rec.Analog 100 UNIT/ML ML SUBCUT SCH (21:00)
[2018-12-03] MEDS ORDERED: Aspirin 81 MG Tab.EC PO SCH (21:00)
[2018-12-03] MEDS ORDERED: glipiZIDE 5 MG Tab PO SCH (21:00)
[2018-12-03] MEDS ORDERED: atorvaSTATin 10 MG Tab PO SCH (21:00)
[2018-12-03] MEDS ORDERED: metFORMIN 500 MG Tab PO SCH (21:00)
[2018-12-03] MEDS ORDERED: SAXAGLIPTIN 5 MG PO SCH (21:00)
[2018-12-03] MEDS ORDERED: Losartan 50 MG Tab PO SCH (21:00)
[2018-12-03] MEDS: Gabapentin 300 MG Cap PO SCH (21:12)
[2018-12-03] MEDS: Heparin Sodium 5,000 Units/ML Vial SUBCUT SCH (21:12)
[2018-12-03] MEDS: Insulin Lispro 100 Units/ML 3 ML Vial SUBCUT SCH (21:18)
--- NOTE | 2018-12-04 00:53 | HP ---
CHIEF COMPLAINT: Increasing weakness and tiredness. HISTORY OF PRESENTING ILLNESS: Ms. Michael Brennan is a 43-year-old female with medical history significant for hypertension, hyperlipidemia, type 2 diabetes mellitus, history of cellulitis in the past, chronic kidney disease, nephrotic range of proteinuria initially presented to [facility] with complaints of increasing weakness and tiredness and noted to have abnormal labs and got transferred here. While in the ER, the patient had some labs done which showed evidence of severe hypokalemia, hypocalcemia and hypomagnesemia and possible bronchitis and urinary tract infection requiring admission to the hospital. At this time, the patient claims that she has been sick for the last 1 week to 10 days, which has been progressively getting worse. She grades the weakness as 5/10 to 6/10 in intensity, which gets aggravated on exertion, relieved with rest, not associated with nausea or vomiting. Denies any abdominal pain. Denies any chest pain. Complains of mild shortness of breath and associated with cough and sputum which is greenish-yellow in color. Denies any burning micturition. Denies any diarrhea. The patient denied any history of chest pains on exertion, but has mild dyspnea on exertion. No history of orthopnea or paroxysmal nocturnal dyspnea. The patient denied any history of hematemesis, hematochezia, or melenic stools. Normal bowel and bladder habits otherwise. REVIEW OF SYSTEMS: A complete review of system including skin, ear, nose, and throat, cardiovascular system, respiratory system, gastrointestinal system, genitourinary system, hematology, oncology, neurology, allergy, immunology, constitutional were all evaluated and were negative except for the above-said notes. PAST MEDICAL HISTORY: Significant for hypertension, type 2 diabetes mellitus, hyperlipidemia, chronic kidney disease, nephrotic range of proteinuria and history of cellulitis. PAST SURGICAL HISTORY: Significant for cholecystectomy. FAMILY HISTORY: Significant for hypertension and diabetes in her mother and father, history of breast cancer in her paternal grandmother. SOCIAL HISTORY: The patient had history of smoking tobacco in the past. Continues to smoke, but occasionally not every day. No history of alcohol intake. ALLERGIES: The patient noted to have allergies to sulfa. HOME MEDICATIONS: Include: 1. Metformin 1000 mg at bedtime. 2. Glipizide 10 mg at bedtime. 3. Lipitor 10 mg at bedtime. 4. Saxagliptin 5 mg at bedtime. 5. Cozaar 50 mg at bedtime. 6. Levemir 15 units at bedtime. 7. Neurontin 600 mg 3 times a day. 8. Aspirin 81 mg at bedtime. PHYSICAL EXAMINATION: Vital Signs: Temperature of 96.7, pulse of 86, blood pressure of 134/75, respiratory rate of 20, and saturating at 93%. General Appearance: The patient is well oriented to time, place, and person. Follows commands spontaneously. Cardiovascular System: S1, S2 heard with normal intensity. No gallops. Respiratory System: Clear to auscultation bilaterally. No wheeze. No crepitations. Abdomen: Soft. Bowel sounds positive. Nontender. No rigidity. Extremities: No edema to bilateral lower extremities except for mild edema noted around the right ankle. Neurologic: No gross focal neurological deficits. LABORATORY DATA: WBC 9.5, hemoglobin 11.1, hematocrit 33.6, and platelet count 519. Sodium 135, potassium 2.8, chloride 101, bicarb 24, BUN 13, creatinine 1.3, glucose 293, magnesium 1.5, calcium 7.5 corrected to 9.2, and low albumin at 1.7. Urinalysis small occult blood, greater than 300 of protein, 500 glucose, many epithelial cells, moderate bacteria and 10-20 wbc's. Influenza screen negative. Generalized weakness and debility from electrolyte imbalance. ASSESSMENT: 1. Hypokalemia. 2. Hypomagnesemia. 3. Hypoalbuminemia. 4. Nephrotic range of proteinuria. 5. Hypertension. 6. Type 2 diabetes mellitus. 7. Hyperlipidemia. 8. Possible urinary tract infection. 9. Possible acute bronchitis. PLAN: 1. Generalized weakness. The patient presents with generalized weakness and tiredness. She is noted to have electrolyte imbalance with hypokalemia, hypomagnesemia, though the labs suggest hypocalcemia that corrected calcium is around 9.5 within normal limits. She is noted to have low albumin. We will replace with magnesium and potassium and recheck a basic metabolic panel in the a.m. and we will closely follow. 2. Possible acute bronchitis. The patient complains of increasing cough with sputum which is greenish-yellow in color. She continues to smoke. We will order for an x-ray of the chest. We will empirically start her on IV Levaquin for now. We will obtain sputum cultures. She does not have any leukocytosis, but she felt cold and sweaty at home. 3. Possible UTI. We will obtain urine culture. Continue with Levaquin. She is noted to have nephrotic range of proteinuria, which could possibly lead to abnormal urinalysis. We will closely follow. 4. Hypertension. The patient's blood pressure is well-maintained. We will continue with current antihypertensive medication. Try to avoid any hypotensive episodes. 5. Type 2 diabetes mellitus, uncontrolled. Noted to have elevated blood sugar. She is noted to be on oral agents as well as insulin. Continue with long-acting insulin. Have her on supplemental scale insulin as needed for additional coverage of her blood glucose. Try to avoid any hypoglycemic episodes. Have her on hypoglycemic protocol. 6. DVT prophylaxis. We will have her on heparin for DVT prophylaxis. 7. Chronic tobacco use. The patient is educated about tobacco cessation. Strongly encouraged her to quit smoking which she understands and verbalizes the same. 8. Code status. The patient wants to be full code. 9. Discussed with [facility] staff regarding the plan of care. Reviewed the labs and medications. Reviewed the old charts. [facility] /[id number]
[2018-12-04] MEDS: Heparin Sodium 5,000 Units/ML Vial SUBCUT SCH (05:42)
[2018-12-04 06:33] LABS: ANION GAP 12.7
[2018-12-04] MEDS: Gabapentin 300 MG Cap PO SCH (08:53)
[2018-12-04] MEDS: Potassium Chloride 10 MEQ Tab.ER PO SCH (08:53)
[2018-12-04] MEDS: Insulin Lispro 100 Units/ML 3 ML Vial SUBCUT SCH ×2 (08:54→12:24)
[2018-12-04 09:45] VITALS: BP 173/91
--- NOTE | 2018-12-04 10:04 | EDM.PDOC ---
ED HPI GENERAL MEDICAL PROBLEM - General Chief Complaint: General Stated Complaint: SENT OVER FROM CLINIC-NEEDS POTASSIUM Time Seen by Provider: 12/03/18 15:45 Source of Information: Reports: Patient History Limitations: Reports: No Limitations - History of Present Illness INITIAL COMMENTS - FREE TEXT/NARRATIVE: Patient presents to ER with complaint of low potassium. Patient states she was seen at [facility] yesterday and was called and told her potassium was quite low and she should report to the ER. Patient states she got sick on ThursdayNovember 22--tired, fatigue decreased appetite, fever, chills, nausea, vomiting, diarrhea, cough, body aches, shortness of breath, and dizziness. States not checking blood sugar and not taking insulin due to feeling ill. Onset: Gradual Duration: Getting Worse Location: Reports: Generalized Severity: Moderate Improves with: Reports: None Worsens with: Reports: None Associated Symptoms: Reports: No Other Symptoms Right Ankle Pain Score (Numeric/FACES): 3 - Related Data Allergies Allergy/AdvReac Type Severity Reaction Status Date / Time Sulfa (Sulfonamide Allergy Hives Verified 12/03/18 17:24 Antibiotics) Home Meds: Home Meds Aspirin [Ecotrin] 81 tab PO BEDTIME 10/29/14 [History] Insulin Detemir [Levemir] 50 units SQ BEDTIME 10/29/14 [History] metFORMIN [Glucophage] 1,000 mg PO BEDTIME 10/29/14 [History] Gabapentin [Neurontin] 600 mg PO TID 07/23/17 [History] Losartan [Cozaar] 50 mg PO BEDTIME 07/23/17 [History] Saxagliptin HCl [Onglyza] 5 mg PO BEDTIME 07/23/17 [History] atorvaSTATin [Lipitor] 10 mg PO BEDTIME 07/23/17 [History] glipiZIDE [Glucotrol] 10 mg PO BEDTIME 12/03/18 [History] Magnesium Oxide 250 mg PO BIDM 10 Days #20 tablet 12/04/18 [Rx] Potassium Chloride [Klor-Con 10] 40 meq PO DAILY 14 Days #14 tab.er 12/04/18 [Rx ] levoFLOXacin [Levaquin] 500 mg PO DAILY 5 Days #5 tab 12/04/18 [Rx] Past Medical History HEENT History: Reports: Cataract, Impaired Vision Other HEENT History: WEARS GLASSES Cardiovascular History: Reports: High Cholesterol, Hypertension Respiratory History: Reports: None Gastrointestinal History: Reports: GERD Genitourinary History: Reports: Chronic Renal Insuffiency, Diabetic Nephropathy 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: Musculoskeletal History: Reports: None Neurological History: Reports: None Psychiatric History: Reports: None Endocrine/Metabolic History: Reports: Diabetes, Type II Hematologic History: Reports: Anemia Immunologic History: Reports: None Oncologic (Cancer) History: Reports: None Dermatologic History: Reports: None - Infectious Disease History Infectious Disease History: Reports: Chicken Pox - Past Surgical History Head Surgeries/Procedures: Reports: None HEENT Surgical History: Reports: Detached Retina, Eye Surgery GI Surgical History: Reports: Cholecystectomy Female Surgical History: Reports: None Social & Family History - Family History Family Medical History: Noncontributory - Tobacco Use Smoking Status *Q: Former Smoker Used Tobacco, but Quit: Yes Month/Year Tobacco Last Used: unsure - Caffeine Use Caffeine Use: Reports: Coffee, Soda - Recreational Drug Use Recreational Drug Use: No - Living Situation & Occupation Living situation: Reports: Single Occupation: Unemployed ED ROS GENERAL - Review of Systems Review Of Systems: ROS reveals no pertinent complaints other than HPI. ED EXAM, GENERAL - Physical Exam Exam: See Below Exam Limited By: No Limitations General Appearance: Alert, WD/WN, No Apparent Distress Eye Exam: Bilateral Eye: EOMI, Normal Inspection, PERRL Ears: Normal External Exam, Normal Canal, Hearing Grossly Normal, Normal TMs Nose: Normal Inspection, Normal Mucosa, No Blood Throat/Mouth: Normal Inspection, Normal Lips, Normal Teeth, Normal Gums, Normal Oropharynx, Normal Voice, No Airway Compromise Head: Atraumatic, Normocephalic Neck: Normal Inspection, Supple, Non-Tender, Full Range of Motion Respiratory/Chest: Crackles (left base) Cardiovascular: Normal Peripheral Pulses, Regular Rate, Rhythm, No Edema, No Gallop, No JVD, No Murmur, No Rub GI/Abdominal: Tender (Female) Exam: Deferred Rectal (Female) Exam: Deferred Back Exam: Normal Inspection, Full Range of Motion, NT Extremities: Normal Inspection, Normal Range of Motion, Non-Tender, Normal Capillary Refill, No Pedal Edema Neurological: Alert, Oriented, CN II-XII Intact, Normal Cognition, Normal Gait, Normal Reflexes, No Motor/Sensory Deficits Psychiatric: Normal Affect, Normal Mood Skin Exam: Warm, Dry, Intact, Normal Color, No Rash Lymphatic: No Adenopathy Course - Vital Signs Last Recorded V/S: Last Vital Signs Temp 97.2 F 12/04/18 09:00 Pulse 95 12/04/18 09:00 Resp 16 12/04/18 09:00 BP 173/91 H 12/04/18 09:00 Pulse Ox 99 12/04/18 09:00 - Orders/Labs/Meds Labs: Laboratory Tests 12/03/18 12/03/18 12/03/18 Range/Units 15:28 15:29 15:38 WBC 9.5 (5.0-10.0) 10^3/uL RBC 4.16 L (4.2-5.4) 10^6/uL Hgb 11.1 L (12.0-16.0) g/dL Hct 33.6 L (37.0-47.0) % MCV 80.8 (80-100) fL MCH 26.7 L (27.0-34.0) pg MCHC 33.0 (33.0-35.0) g/dL Plt Count 519 H D (150-450) 10^3/uL Neut % (Auto) 66.1 (42.2-75.2) % Lymph % (Auto) 24.1 (20.5-50.1) % [place] % (Auto) 6.7 (2-8) % Eos % (Auto) 2.9 (1.0-3.0) % Baso % (Auto) 0.2 (0.0-1.0) % Add Manual Diff Yes Neutrophils % (Manual) 75 (42-75) % Lymphocytes % (Manual) 20 (20-50) % Eosinophils % (Manual) 4 H (1-3) % Myelocytes % 1 Anisocytosis 1+ slight Microcytosis 1+ slight Sodium (135-145) mmol/L Potassium (3.6-5.0) mmol/L Chloride (101-111) mmol/L Carbon Dioxide (21.0-31.0) mmol/L Anion Gap BUN (7-18) mg/dL Creatinine (0.6-1.3) mg/dL Est Cr Clr Drug Dosing mL/min Estimated GFR (MDRD) BUN/Creatinine Ratio Glucose (74-105) mg/dL POC Glucose (70-105) mg/dl Calcium (8.4-10.2) mg/dl Magnesium (1.8-2.5) mg/dL Total Bilirubin (0.2-1.0) mg/dL AST (10-42) IU/L ALT (10-60) IU/L Alkaline Phosphatase (42-121) IU/L Troponin I (0.00-0.02) ng/ml Total Protein (6.7-8.2) g/dl Albumin (3.2-5.5) g/dl Globulin Albumin/Globulin Ratio Urine Color Yellow (YELLOW) Urine Appearance Slightly cloudy (CLEAR) Urine pH 6.0 (5.0-9.0) Ur Specific [place] 1.025 (1.005-1.030) Urine Protein >=300 H (NEGATIVE) Urine Glucose (UA) 500 H (NEGATIVE) Urine Ketones Negative (NEGATIVE) Urine Occult Blood Small H (NEGATIVE) Urine Nitrite Negative (NEGATIVE) Urine Bilirubin Negative (NEGATIVE) Urine Urobilinogen 0.2 (0.2-1.0) mg/dL Ur Leukocyte Esterase Negative (NEGATIVE) Urine RBC 0-5 /HPF Urine WBC 10-20 H (0-5/HPF) /HPF Ur Epithelial Cells Many H (NOT SEEN) /HPF Urine Bacteria Moderate H (0-FEW/HPF) /HPF Urine Other See note Urine HCG, Qual Negative 12/03/18 12/03/18 Range/Units 15:38 17:30 WBC (5.0-10.0) 10^3/uL RBC (4.2-5.4) 10^6/uL Hgb (12.0-16.0) g/dL Hct (37.0-47.0) % MCV (80-100) fL MCH (27.0-34.0) pg MCHC (33.0-35.0) g/dL Plt Count (150-450) 10^3/uL Neut % (Auto) (42.2-75.2) % Lymph % (Auto) (20.5-50.1) % [place] % (Auto) (2-8) % Eos % (Auto) (1.0-3.0) % Baso % (Auto) (0.0-1.0) % Add Manual Diff Neutrophils % (Manual) (42-75) % Lymphocytes % (Manual) (20-50) % Eosinophils % (Manual) (1-3) % Myelocytes % Anisocytosis Microcytosis Sodium 135 (135-145) mmol/L Potassium 2.8 L (3.6-5.0) mmol/L Chloride 101 (101-111) mmol/L Carbon Dioxide 24.0 (21.0-31.0) mmol/L Anion Gap 12.8 BUN 13 (7-18) mg/dL Creatinine 1.3 (0.6-1.3) mg/dL Est Cr Clr Drug Dosing 58.31 mL/min Estimated GFR (MDRD) 45 BUN/Creatinine Ratio 10.00 Glucose 293 H (74-105) mg/dL POC Glucose 388 H (70-105) mg/dl Calcium 7.5 L (8.4-10.2) mg/dl Magnesium 1.5 L (1.8-2.5) mg/dL Total Bilirubin 0.5 (0.2-1.0) mg/dL AST 21 (10-42) IU/L ALT 13 (10-60) IU/L Alkaline Phosphatase 122 H (42-121) IU/L Troponin I < 0.02 (0.00-0.02) ng/ml Total Protein 6.8 (6.7-8.2) g/dl Albumin 1.7 L (3.2-5.5) g/dl Globulin 5.1 Albumin/Globulin Ratio 0.33 Urine Color (YELLOW) Urine Appearance (CLEAR) Urine pH (5.0-9.0) Ur Specific [place] (1.005-1.030) Urine Protein (NEGATIVE) Urine Glucose (UA) (NEGATIVE) Urine Ketones (NEGATIVE) Urine Occult Blood (NEGATIVE) Urine Nitrite (NEGATIVE) Urine Bilirubin (NEGATIVE) Urine Urobilinogen (0.2-1.0) mg/dL Ur Leukocyte Esterase (NEGATIVE) Urine RBC /HPF Urine WBC (0-5/HPF) /HPF Ur Epithelial Cells (NOT SEEN) /HPF Urine Bacteria (0-FEW/HPF) /HPF Urine Other Urine HCG, Qual Meds: Medications Discontinued Medications Generic Name Dose Route Start Last Admin Trade Name Freq PRN Reason Stop Dose Admin Acetaminophen 650 mg 12/03/18 18:09 Tylenol PO Q4H PRN Pain (Mild 1-3)/fever Aspirin 81 mg 12/03/18 21:00 12/03/18 21:12 Halfprin PO 81 mg BEDTIME MARTÍNEZ Administration Atorvastatin Calcium 10 mg 12/03/18 21:00 12/03/18 21:11 Lipitor PO 10 mg BEDTIME MARTÍNEZ Administration Dextrose/Water 50 ml 12/03/18 18:12 Dextrose 50% In Water IVPUSH ONETIME PRN Hypoglycemia Gabapentin 600 mg 12/03/18 21:00 12/04/18 08:53 Neurontin PO 600 mg TID MARTÍNEZ Administration Glipizide 10 mg 12/03/18 21:00 12/03/18 21:11 Glucotrol PO 10 mg BEDTIME MARTÍNEZ Administration Heparin Sodium (Porcine) 5,000 units 12/03/18 22:00 12/04/18 05:42 Heparin Sodium SUBCUT 5,000 units Q8HR MARTÍNEZ Administration Potassium Chloride/Sodium Chloride 1,000 mls @ 500 mls/hr 12/03/18 16:30 19:08 Normal Saline With 20 Meq Kcl IV Infused ASDIRECTED MARTÍNEZ Infusion Levofloxacin/Dextrose 500 mg/ 100 mls @ 100 mls/hr 12/03/18 18:00 12/03/18 19 :09 Premix IV 100 mls/hr Q24H MARTÍNEZ Administration Potassium Chloride/Sodium Chloride 1,000 mls @ 75 mls/hr 12/03/18 18:15 12/04 02:53 Normal Saline With 20 Meq Kcl IV 75 mls/hr ASDIRECTED MARTÍNEZ Administration Insulin Glargine 50 unit 12/03/18 21:00 12/03/18 21:15 Lantus SUBCUT 50 units BEDTIME MARTÍNEZ Administration Insulin Human Lispro 0 unit 12/03/18 21:00 12/04/18 12:24 Humalog SUBCUT 6 units QID MARTÍNEZ Administration Protocol Losartan Potassium 50 mg 12/03/18 21:00 12/03/18 21:10 Cozaar PO 50 mg BEDTIME MARTÍNEZ Administration Magnesium Hydroxide 30 ml 12/03/18 18:09 Milk Of Magnesia PO Q12H PRN Constipation Magnesium Oxide 250 mg 12/03/18 18:13 12/04/18 08:52 Magnesium Oxide PO 250 mg BIDM MARTÍNEZ Administration Metformin HCl 1,000 mg 12/03/18 21:00 12/03/18 21:22 Glucophage PO 1,000 mg BEDTIME MARTÍNEZ Administration Saxagliptin 5 Mg 0 mg 12/03/18 21:00 12/03/18 21:14 Own Med PO 5 mg BEDTIME MARTÍNEZ Administration Ondansetron HCl 4 mg 12/03/18 18:09 Zofran Odt PO Q4H PRN nausea, able to take PO Polyethylene Glycol 17 gm 12/03/18 18:09 Miralax PO DAILY PRN Constipation Potassium Chloride 40 meq 12/03/18 18:14 12/04/18 08:53 Klor-Con 10 PO 40 meq BIDMEALS MARTÍNEZ Administration Sodium Chloride 10 ml 12/03/18 15:29 12/03/18 15:49 Saline Flush FLUSH 10 ml ASDIRECTED PRN Administration Keep Vein Open - Re-Assessments/Exams Free Text/Narrative Re-Assessment/Exam: 12/04/18 17:56 Discussed Patient case with Dr. Snider who agreed to accept the patient for observation admission. Departure - Departure Time of Disposition: 17:20 Disposition: Refer to Observation Condition: Fair Clinical Impression: Hypokalemia - Discharge Information *PRESCRIPTION DRUG MONITORING PROGRAM REVIEWED*: No *COPY OF PRESCRIPTION DRUG MONITORING REPORT IN PATIENT KIMMY: No
--- NOTE | 2018-12-04 13:15 | DISCH ---
ADMITTING DIAGNOSES: 1. Generalized weakness. 2. Severe hypokalemia. 3. Hypomagnesemia. 4. Nephrotic range proteinuria with hypoalbuminemia. 5. Possible urinary tract infection. 6. Possible acute bronchitis. DISCHARGE DIAGNOSES: 1. Hypokalemia, resolved. 2. Hypomagnesemia, improved. 3. Nephrotic range proteinuria. 4. Possible acute bronchitis, on oral antibiotic with Levaquin. HISTORY OF PRESENTING ILLNESS: Mrs. 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 Initially presented to the clinic with complaints of increasing weakness and tiredness and noted to have abnormal labs including severe hypokalemia, hypomagnesemia, and was admitted to the hospital. She was noted to have possible bronchitis. She was started on IV Levaquin. She was replaced with IV and oral potassium chloride and oral magnesium. Her potassium is improved from 2.8 to 3.7 at the time of admission. Her magnesium is at 1.5, requiring oral replacement of magnesium oxide. She was also noted to have uncontrolled diabetes and her blood sugar seems to be improved at the time of discharge. She responded well to the treatment. She is discharged home in stable condition. She is advised to follow with her primary care physician next 1 week of time. DISCHARGE MEDICATIONS: Include: 1. Aspirin 81 mg daily. 2. Neurontin 600 mg 3 times a day. 3. Levemir 50 units at bedtime. 4. Cozaar 50 mg at bedtime. 5. Magnesium oxide 250 mg twice a day. 6. Potassium chloride 40 mEq daily. 7. Saxagliptin 5 mg at bedtime. 8. Lipitor 10 mg at bedtime. 9. Glipizide 10 mg at bedtime. 10.Metformin 1000 mg at bedtime. PHYSICAL EXAMINATION: On the day of discharge: Vital Signs: Temperature of 97.2, pulse of 95, blood pressure of 173/91, respiratory rate 16, and saturating at 99% on room air. General Appearance: The patient is well oriented to time, place, and person. Follows commands spontaneously. Cardiovascular: S1 and S2 heard with normal intensity. No gallops. Respiratory: Clear to auscultation bilaterally. No wheeze. No crepitations. Abdomen: Soft. Bowel sounds positive. Nontender. No rigidity. Extremities: No edema of bilateral lower extremities. CONDITION ON ADMISSION: Poor. CONDITION ON DISCHARGE: Stable. DISPOSITION: Discharged to home. ACTIVITY: As tolerated. DIET: 1. Cardiac healthy diet with consistent carbohydrate diet. 2. Follow with primary care physician next 1 week of time. [facility] /[id number]
== END 2018-12-04 13:05 | disposition home or self-care (01) ==
LOC: DL.ED 15:18 → UNDOADMOB 17:06 → DL.MS 17:06
PROVIDERS: ADMIT Internal Medicine; ATTEND Internal Medicine
DX: E87.6 Hypokalemia (principal); E83.42 Hypomagnesemia; E08.21 Diabetes mellitus due to underlying condition with diabetic nephropathy; R80.9 Proteinuria, unspecified; E78.5 Hyperlipidemia, unspecified; E88.09 Other disorders of plasma-protein metabolism, not elsewhere classified; I12.9 Hypertensive chronic kidney disease with stage 1 through stage 4 chronic kidney disease, or unspecified chronic kidney disease; E11.22 Type 2 diabetes mellitus with diabetic chronic kidney disease; N18.9 Chronic kidney disease, unspecified; Z79.4 Long term (current) use of insulin; Z79.82 Long term (current) use of aspirin; Z79.899 Other long term (current) drug therapy; Z88.2 Allergy status to sulfonamides; Z86.2 Personal history of diseases of the blood and blood-forming organs and certain disorders involving the immune mechanism
CPT/HCPCS: 36415; 80048; 80053; 81001; 81025; 82962; 83735; 84100; 84484; 85025; 85027; 87086; 87804; 93005; 96360; 96365; 99285; A4217; A9270; J1644; J1815; J1956; J3480

== ENCOUNTER 2019-09-04 23:46 | Emergency (ER) | payer OTHER, MEDICAID ==
[2019-09-04] MEDS ORDERED: Azithromycin 250 MG Tab PO ONE (23:47)
[2019-09-04] MEDS ORDERED: Albuterol 6.7 GM Inhaler INH ONE (23:47)
[2019-09-05 00:01] VITALS: BP 162/92; PULSE 91
--- NOTE | 2019-09-05 00:05 | EDM.PDOC ---
ED HPI GENERAL MEDICAL PROBLEM - General Chief Complaint: Respiratory Problem Stated Complaint: SICK FOR OVER A WEEK Time Seen by Provider: 09/05/19 00:05 Source of Information: Reports: Patient History Limitations: Reports: No Limitations - History of Present Illness INITIAL COMMENTS - FREE TEXT/NARRATIVE: ED ambulatory with c/o cough x one week, fever, Nausea vomiting and diarrhea last week. Still not able to sleep. Poor appetite. Feels week. Cough dry non productive. No urinary symptoms Chest Pain Score (Numeric/FACES): 7 - Related Data Allergies Allergy/AdvReac Type Severity Reaction Status Date / Time Sulfa (Sulfonamide Allergy Hives Verified 09/04/19 23:58 Antibiotics) Home Meds: Home Meds Aspirin [Ecotrin EC] 81 tab PO BEDTIME 10/29/14 [History] Insulin Detemir [Levemir] 50 units SQ BID 10/29/14 [History] metFORMIN [Glucophage] 1,000 mg PO BID 10/29/14 [History] Gabapentin [Neurontin] 600 mg PO TID 07/23/17 [History] Saxagliptin HCl [Onglyza] 5 mg PO BEDTIME 07/23/17 [History] glipiZIDE [Glucotrol] 10 mg PO BEDTIME 12/03/18 [History] Magnesium Oxide 250 mg PO BIDM 10 Days #20 tablet 12/04/18 [Rx] levoFLOXacin [Levaquin] 500 mg PO DAILY 5 Days #5 tab 12/04/18 [Rx] Bumetanide 1 mg PO DAILY 02/09/19 [History] Ferrous Gluconate 324 mg PO DAILY 02/09/19 [History] Insulin Aspart [NovoLOG] 15 units SQ TIDMEALS 02/09/19 [History] Losartan [Cozaar] 100 mg PO DAILY 02/09/19 [History] Menthol/Methyl Salicylate [Icy Hot Cream] 35.4 gm TP TID PRN 02/09/19 [History] Metoprolol Succinate [Toprol XL 50mg] 50 mg PO DAILY 02/09/19 [History] Multivitamin [Multivitamins] 1 cap PO DAILY 02/09/19 [History] Omeprazole 20 mg PO DAILY 02/09/19 [History] Potassium Chloride 20 meq PO BID 02/09/19 [History] atorvaSTATin Calcium [Atorvastatin Calcium] 80 mg PO BEDTIME 02/09/19 [History] lisinopriL [Lisinopril] 2.5 mg PO DAILY 02/09/19 [History] Past Medical History - Past Health History Medical/Surgical History: Denies Medical/Surgical History HEENT History: Reports: Cataract, Impaired Vision Other HEENT History: WEARS GLASSES Cardiovascular History: Reports: High Cholesterol, Hypertension Respiratory History: Reports: Bronchitis, Recurrent Gastrointestinal History: Reports: GERD Genitourinary History: Reports: Chronic Renal Insuffiency, Diabetic Nephropathy 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: Musculoskeletal History: Reports: None Neurological History: Reports: None Psychiatric History: Reports: None Endocrine/Metabolic History: Reports: Diabetes, Type II Hematologic History: Reports: Anemia Immunologic History: Reports: None Oncologic (Cancer) History: Reports: None Dermatologic History: Reports: None - Infectious Disease History Infectious Disease History: Reports: Chicken Pox - Past Surgical History Head Surgeries/Procedures: Reports: None HEENT Surgical History: Reports: Detached Retina, Eye Surgery GI Surgical History: Reports: Cholecystectomy Female Surgical History: Reports: None Social & Family History - Family History Family Medical History: Noncontributory HEENT: Reports: None Cardiac: Reports: None Respiratory: Reports: None OBGYN: Reports: Neurological: Reports: None Endocrine/Metabolic: Reports: Diabetes, type II - Tobacco Use Smoking Status *Q: Current Every Day Smoker Years of Tobacco use: 25 Packs/Tins Daily: 0.2 - Caffeine Use Caffeine Use: Reports: Soda - Recreational Drug Use Recreational Drug Use: No - Living Situation & Occupation Living situation: Reports: Single Occupation: Unemployed ED ROS GENERAL - Review of Systems Review Of Systems: Comprehensive ROS is negative, except as noted in HPI. ED EXAM, GENERAL - Physical Exam Exam: See Below Exam Limited By: No Limitations General Appearance: Alert, Mild Distress Ears: Normal External Exam, Normal TMs Ear Exam: Bilateral Ear: TM Dull Nose: Normal Inspection Throat/Mouth: Normal Inspection Head: Atraumatic, Normocephalic Neck: Normal Inspection, Full Range of Motion. No: Lymphadenopathy (L), Lymphadenopathy (R) Respiratory/Chest: No Respiratory Distress, Decreased Breath Sounds (bases), Other (intermittent dry cough) Cardiovascular: Normal Peripheral Pulses, Regular Rate, Rhythm, No Edema, No Murmur GI/Abdominal: Normal Bowel Sounds, Non-Tender Back Exam: Full Range of Motion Extremities: Normal Inspection Neurological: Alert, Oriented Psychiatric: Normal Affect, Normal Mood Skin Exam: Warm, Dry, Intact, Normal Color Course - Vital Signs Last Recorded V/S: Last Vital Signs Temp 97.1 F 09/04/19 23:59 Pulse 91 09/04/19 23:59 Resp 16 09/04/19 23:59 BP 162/92 H 09/04/19 23:59 Pulse Ox 97 09/04/19 23:59 - Orders/Labs/Meds Orders: Active Orders 24 hr Category Date Time Status Chest 1V Frontal [CR] Urgent Exams 09/05/19 01:00 Taken Labs: Laboratory Tests 09/05/19 09/05/19 09/05/19 Range/Units 00:13 00:13 00:13 WBC 8.4 (5.0-10.0) 10^3/uL RBC 3.75 L (4.2-5.4) 10^6/uL Hgb 10.2 L (12.0-16.0) g/dL Hct 30.9 L (37.0-47.0) % MCV 82.4 D (80-100) fL MCH 27.2 (27.0-34.0) pg MCHC 33.0 (33.0-35.0) g/dL Plt Count 440 D (150-450) 10^3/uL Neut % (Auto) 53.3 (42.2-75.2) % Lymph % (Auto) 38.9 (20.5-50.1) % [place] % (Auto) 5.7 (2-8) % Eos % (Auto) 1.9 (1.0-3.0) % Baso % (Auto) 0.2 (0.0-1.0) % Add Manual Diff Yes Neutrophils % (Manual) 55 (42-75) % Lymphocytes % (Manual) 38 (20-50) % Monocytes % (Manual) 6 (2-8) % Eosinophils % (Manual) 1 (1-3) % Atypical Lymphocytes Rare Sodium 140 (135-145) mmol/L Potassium 3.2 L (3.6-5.0) mmol/L Chloride 107 (101-111) mmol/L Carbon Dioxide 25.0 (21.0-31.0) mmol/L Anion Gap 11.2 BUN 12 D (7-18) mg/dL Creatinine 1.8 H (0.6-1.3) mg/dL Est Cr Clr Drug Dosing 39.19 mL/min Estimated GFR (MDRD) 31 BUN/Creatinine Ratio 6.66 Glucose 115 H (74-105) mg/dL Lactic Acid 1.1 (0.5-2.0) mmol/L Calcium 7.8 L (8.4-10.2) mg/dl Total Bilirubin 0.3 (0.2-1.0) mg/dL AST 20 (10-42) IU/L ALT 17 (10-60) IU/L Alkaline Phosphatase 107 (42-121) IU/L Total Protein 6.3 L (6.7-8.2) g/dl Albumin 2.0 L (3.2-5.5) g/dl Globulin 4.3 Albumin/Globulin Ratio 0.47 Amylase 29 (28-100) U/L Lipase 35 (22-51) U/L Meds: Medications Discontinued Medications Generic Name Dose Route Start Last Admin Trade Name Freq PRN Reason Stop Dose Admin Albuterol Confirm 09/05/19 01:22 09/05/19 01:27 Proventil Hfa Administered 09/05/19 01:23 Not Given Dose 6.7 gm INH .STK-MED ONE Azithromycin Confirm 09/05/19 01:21 09/05/19 01:27 Zithromax Administered 09/05/19 01:22 Not Given Dose 250 mg .ROUTE .STK-MED ONE Benzonatate 200 mg 09/05/19 01:10 09/05/19 01:18 Tessalon Perles PO 09/05/19 01:11 200 mg ONETIME ONE Administration Sodium Chloride 1,000 mls @ 999 mls/hr 09/05/19 01:01 09/05/19 01:18 Normal Saline IV 09/05/19 02:01 999 mls/hr .BOLUS ONE Administration Potassium Chloride 20 meq 09/05/19 01:01 09/05/19 01:18 Klor-Con 10 PO 09/05/19 01:02 20 meq ONETIME ONE Administration - Radiology Interpretation Free Text/Narrative:: CXR No acute process see report Departure - Departure Time of Disposition: 01:21 Disposition: Home, Self-Care 01 Condition: Good Clinical Impression: Bronchitis, Hypokalemia, Renal insufficiency - Discharge Information *PRESCRIPTION DRUG MONITORING PROGRAM REVIEWED*: Not Applicable *COPY OF PRESCRIPTION DRUG MONITORING REPORT IN PATIENT KIMMY: Not Applicable Instructions: Acute Bronchitis, Adult, [id number] Referrals: PCP,None [Ordering Only Provider] - Forms: ED Department Discharge Additional Instructions: albuterol inhaler 2 puff every 4 hours as needed for cough azithromycin 500mg tonight then 250mg daily increase fluid intake clinic follow up this week Sepsis Event Note - Evaluation Sepsis Screening Result: No Definite Risk - Focused Exam Vital Signs: Vital Signs Temp Pulse Resp BP Pulse Ox 09/04/19 23:59 97.1 F 91 16 162/92 H 97 Date Exam was Performed: 09/05/19 Time Exam was Performed: 05:26 - My Orders Last 24 Hours: My Active Orders 09/05/19 01:00 Chest 1V Frontal [CR] Urgent - Assessment/Plan Last 24 Hours: My Active Orders 09/05/19 01:00 Chest 1V Frontal [CR] Urgent
[2019-09-05 00:42] LABS: ANION GAP 11.2
[2019-09-05] MEDS ORDERED: Potassium Chloride 10 MEQ Tab.ER PO ONE (01:01)
[2019-09-05] MEDS ORDERED: Sodium Chloride 0.9% 1,000 ML IV ONE (01:01)
[2019-09-05] MEDS ORDERED: Benzonatate 100 MG Cap PO ONE (01:10)
[2019-09-05] MEDS ORDERED: Azithromycin 250 MG Tab ONE (01:21)
[2019-09-05] MEDS ORDERED: Albuterol 6.7 GM Inhaler INH ONE (01:22)
== END 2019-09-05 01:56 | disposition home or self-care (01) ==
LOC: DL.ED 23:46
DX: J40 Bronchitis, not specified as acute or chronic (principal); E87.6 Hypokalemia; E78.00 Pure hypercholesterolemia, unspecified; K21.9 Gastro-esophageal reflux disease without esophagitis; I12.9 Hypertensive chronic kidney disease with stage 1 through stage 4 chronic kidney disease, or unspecified chronic kidney disease; E11.22 Type 2 diabetes mellitus with diabetic chronic kidney disease; N18.9 Chronic kidney disease, unspecified; E11.40 Type 2 diabetes mellitus with diabetic neuropathy, unspecified; F17.210 Nicotine dependence, cigarettes, uncomplicated; Z88.2 Allergy status to sulfonamides; Z79.82 Long term (current) use of aspirin; Z79.4 Long term (current) use of insulin; Z79.899 Other long term (current) drug therapy
CPT/HCPCS: 36415; 71045; 80053; 82150; 83605; 83690; 85025; 87804; 96360; 99284; A9270; J7030

== ENCOUNTER 2019-10-12 18:57 | Emergency (ER) | payer OTHER, MEDICAID | END 2019-10-12 19:27 | disposition left against medical advice (07) | LOC: DL.ED 18:57 | DX: Z53.21 Procedure and treatment not carried out due to patient leaving prior to being seen by health care provider (principal) ==

== ENCOUNTER 2020-06-04 17:26 | Emergency (ER) | payer MEDICAID, OTHER ==
[2020-06-04 18:08] VITALS: BP 157/75; PULSE 93
--- NOTE | 2020-06-04 18:20 | CR ---
PROCEDURE INFORMATION: Exam: XR Chest, 1 View Exam date and time: 06/04/2020 6:07 PM Age: 44 years old Clinical indication: Chest pain; Type not specified TECHNIQUE: Imaging protocol: XR of the chest Views: 1 view. COMPARISON: CR Chest 1V Frontal 09/05/2019 1:08 AM FINDINGS: Lungs: Unremarkable. No consolidation. Pleural space: Unremarkable. No pleural effusion. No pneumothorax. Heart/Mediastinum: Unremarkable. No cardiomegaly. Bones/joints: Unremarkable. IMPRESSION: No acute findings.
[2020-06-04 18:31] LABS: ANION GAP 10.8 mEq/L (7-13)
[2020-06-04] MEDS ORDERED: Potassium Chloride 10 MEQ in Premix Bag 1 BAG IV ONE (18:42)
[2020-06-04] MEDS ORDERED: Sodium Chloride 0.9% 1,000 ML IV SCH (18:45)
--- NOTE | 2020-06-04 19:12 | EDM.PDOC ---
<Thierry Garcia M - Last Filed: 06/04/20 19:08> ED HPI GENERAL MEDICAL PROBLEM - General Chief Complaint: Chest Pain Stated Complaint: CHEST PAINS, BEATING FAST Time Seen by Provider: 06/04/20 18:00 Source of Information: Reports: Patient History Limitations: Reports: No Limitations - History of Present Illness INITIAL COMMENTS - FREE TEXT/NARRATIVE: This 44 yo female patient reports to the ED with chest pressure that started this morning at 0700. The patient reports no additional symptoms at this time, but has been thinking about some of her family members with health issues. The patient also reports she has a kidney biopsy in the near future. Onset: Today Onset Date: 06/04/20 Onset Time: 07:00 Duration: Intermittent Location: Reports: Chest Quality: Reports: Pressure Severity: Moderate Improves with: Reports: None Worsens with: Reports: None Context: Reports: Other Associated Symptoms: Reports: No Other Symptoms Chest Pain Score (Numeric/FACES): 5 - Related Data Allergies Allergy/AdvReac Type Severity Reaction Status Date / Time Sulfa (Sulfonamide Allergy Hives Verified 06/04/20 18:08 Antibiotics) sulfacetamide Allergy Rash Verified 06/04/20 18:08 Home Meds: Home Meds Aspirin [Ecotrin EC] 81 tab PO BEDTIME 10/29/14 [History] Insulin Detemir [Levemir] 50 units SQ BID 10/29/14 [History] metFORMIN [Glucophage] 1,000 mg PO BID 10/29/14 [History] Gabapentin [Neurontin] 600 mg PO TID 07/23/17 [History] Saxagliptin HCl [Onglyza] 5 mg PO BEDTIME 07/23/17 [History] glipiZIDE [Glucotrol] 10 mg PO BEDTIME 12/03/18 [History] Magnesium Oxide 250 mg PO BIDM 10 Days #20 tablet 12/04/18 [Rx] levoFLOXacin [Levaquin] 500 mg PO DAILY 5 Days #5 tab 12/04/18 [Rx] Bumetanide 1 mg PO DAILY 02/09/19 [History] Ferrous Gluconate 324 mg PO DAILY 02/09/19 [History] Insulin Aspart [NovoLOG] 15 units SQ TIDMEALS 02/09/19 [History] Losartan [Cozaar] 100 mg PO DAILY 02/09/19 [History] Menthol/Methyl Salicylate [Icy Hot Cream] 35.4 gm TP TID PRN 02/09/19 [History] Metoprolol Succinate [Toprol XL 50mg] 50 mg PO DAILY 02/09/19 [History] Multivitamin [Multivitamins] 1 cap PO DAILY 02/09/19 [History] Omeprazole 20 mg PO DAILY 02/09/19 [History] Potassium Chloride 20 meq PO BID 02/09/19 [History] atorvaSTATin Calcium [Atorvastatin Calcium] 80 mg PO BEDTIME 02/09/19 [History] lisinopriL [Lisinopril] 2.5 mg PO DAILY 02/09/19 [History] Past Medical History - Past Health History Medical/Surgical History: Denies Medical/Surgical History HEENT History: Reports: Cataract, Impaired Vision Other HEENT History: WEARS GLASSES Cardiovascular History: Reports: High Cholesterol, Hypertension Respiratory History: Reports: Bronchitis, Recurrent Gastrointestinal History: Reports: GERD Genitourinary History: Reports: Chronic Renal Insuffiency, Diabetic Nephropathy DIRECTOR OF QUALITY History: Reports: Musculoskeletal History: Reports: None Neurological History: Reports: None Psychiatric History: Reports: None Endocrine/Metabolic History: Reports: Diabetes, Type II Hematologic History: Reports: Anemia Immunologic History: Reports: None Oncologic (Cancer) History: Reports: None Dermatologic History: Reports: None - Infectious Disease History Infectious Disease History: Reports: Chicken Pox - Past Surgical History Head Surgeries/Procedures: Reports: None HEENT Surgical History: Reports: Detached Retina, Eye Surgery Respiratory Surgical History: Reports: None GI Surgical History: Reports: Cholecystectomy Female Surgical History: Reports: None Endocrine Surgical History: Reports: None Neurological Surgical History: Reports: None Musculoskeletal Surgical History: Reports: None Oncologic Surgical History: Reports: None Social & Family History - Family History Family Medical History: No Pertinent Family History HEENT: Reports: None Cardiac: Reports: None Respiratory: Reports: None OBGYN: Reports: Neurological: Reports: None Endocrine/Metabolic: Reports: Diabetes, type II - Tobacco Use Tobacco Use Status *Q: Current Some Day Tobacco User Years of Tobacco use: 20 Packs/Tins Daily: 0.2 - Caffeine Use Caffeine Use: Reports: Soda - Recreational Drug Use Recreational Drug Use: No - Living Situation & Occupation Living situation: Reports: Single Occupation: Unemployed ED ROS GENERAL - Review of Systems Review Of Systems: Comprehensive ROS is negative, except as noted in HPI. ED EXAM, GENERAL - Physical Exam Exam: See Below Exam Limited By: No Limitations General Appearance: Alert, WD/WN, Mild Distress Eye Exam: Bilateral Eye: EOMI, Normal Inspection, PERRL Ears: Normal External Exam, Normal Canal, Hearing Grossly Normal, Normal TMs Nose: Normal Inspection, Normal Mucosa, No Blood Throat/Mouth: Normal Inspection, Normal Lips, Normal Teeth, Normal Gums, Normal Oropharynx, Normal Voice, No Airway Compromise Head: Atraumatic, Normocephalic Neck: Normal Inspection, Supple, Non-Tender, Full Range of Motion Respiratory/Chest: No Respiratory Distress, Lungs Clear, Normal Breath Sounds, No Accessory Muscle Use, Chest Non-Tender Cardiovascular: Normal Peripheral Pulses, Regular Rate, Rhythm, No Edema, No Gallop, No JVD, No Murmur, No Rub GI/Abdominal: Normal Bowel Sounds, Soft, Non-Tender, No Organomegaly, No Distention, No Abnormal Bruit, No Mass (Female) Exam: Deferred Rectal (Female) Exam: Deferred Back Exam: Normal Inspection, Full Range of Motion, NT Extremities: Normal Inspection, Normal Range of Motion, Non-Tender, Normal Capillary Refill, No Pedal Edema Neurological: Alert, Oriented, CN II-XII Intact Psychiatric: Anxious Skin Exam: Warm, Dry, Intact, Normal Color, No Rash Lymphatic: No Adenopathy Departure - Departure Disposition: Home, Self-Care 01 Clinical Impression: Epigastric abdominal pain, Anxiety, Hypokalemia Chest pain Qualifiers: Chest pain type: unspecified Qualified Code(s): R07.9 - Chest pain, unspecified Instructions: Hypokalemia, Nonspecific Chest Pain, Adult, [id number] Referrals: Jose Conde [Primary Care Provider] - Forms: ED Department Discharge Additional Instructions: Follow up with renal specialist on as scheduled Continue home medication as ordered. make sure to take potassium tonight bland diet Follow with primary care provider this week Sepsis Event Note (ED) - Evaluation Sepsis Screening Result: No Definite Risk <Ondina Portillo - Last Filed: 06/05/20 04:09> Course - Vital Signs Last Recorded V/S: Last Vital Signs Temp 98.1 F 06/04/20 17:30 Pulse 93 06/04/20 17:30 Resp 18 06/04/20 17:30 BP 157/75 H 06/04/20 17:30 Pulse Ox 99 06/04/20 17:30 - Orders/Labs/Meds Orders: Active Orders 24 hr Category Date Time Status CULTURE BLOOD [BC] Stat Lab 06/04/20 18:00 Results Labs: Laboratory Tests 06/04/20 06/04/20 06/04/20 Range/Units 18:00 18:00 18:00 WBC 8.7 (5.0-10.0) 10^3/uL RBC 3.60 L (4.2-5.4) 10^6/uL Hgb 9.3 L (12.0-16.0) g/dL Hct 28.9 L (37.0-47.0) % MCV 80.3 (80-100) fL MCH 25.8 L (27.0-34.0) pg MCHC 32.2 L (33.0-35.0) g/dL Plt Count 351 D (150-450) 10^3/uL Neut % (Auto) 68.1 (42.2-75.2) % Lymph % (Auto) 22.8 (20.5-50.1) % [place] % (Auto) 6.6 (2-8) % Eos % (Auto) 2.2 (1.0-3.0) % Baso % (Auto) 0.3 (0.0-1.0) % Sodium 134 L (136-145) mmol/L Potassium 2.8 L (3.5-5.1) mmol/L Chloride 96 L (98-107) mmol/L Carbon Dioxide 30 (21-32) mmol/L Anion Gap 10.8 (7-13) mEq/L BUN 19 H (7-18) mg/dL Creatinine 2.27 H (0.55-1.02) mg/dL Est Cr Clr Drug Dosing 31.90 mL/min Estimated GFR (MDRD) 23 BUN/Creatinine Ratio 8.4 (No establ ref range) Glucose 397 H (74-99) mg/dL Lactic Acid 1.7 (0.4-2.0) mmol/L Calcium 11.2 H (8.5-10.1) mg/dL Total Bilirubin 0.2 (0.2-1.0) mg/dL AST 25 (15-37) U/L ALT 28 (14-59) U/L Alkaline Phosphatase 103 (46-116) U/L Troponin I 0.030 (0.000-0.056) ng/mL B-Natriuretic Peptide (0-100) pg/ml Total Protein 7.2 (6.4-8.2) g/dL Albumin 2.3 L (3.4-5.0) g/dL Globulin 4.9 Albumin/Globulin Ratio 0.47 06/04/20 06/04/20 Range/Units 18:00 22:16 WBC (5.0-10.0) 10^3/uL RBC (4.2-5.4) 10^6/uL Hgb (12.0-16.0) g/dL Hct (37.0-47.0) % MCV (80-100) fL MCH (27.0-34.0) pg MCHC (33.0-35.0) g/dL Plt Count (150-450) 10^3/uL Neut % (Auto) (42.2-75.2) % Lymph % (Auto) (20.5-50.1) % [place] % (Auto) (2-8) % Eos % (Auto) (1.0-3.0) % Baso % (Auto) (0.0-1.0) % Sodium (136-145) mmol/L Potassium (3.5-5.1) mmol/L Chloride (98-107) mmol/L Carbon Dioxide (21-32) mmol/L Anion Gap (7-13) mEq/L BUN (7-18) mg/dL Creatinine (0.55-1.02) mg/dL Est Cr Clr Drug Dosing mL/min Estimated GFR (MDRD) BUN/Creatinine Ratio (No establ ref range) Glucose (74-99) mg/dL Lactic Acid (0.4-2.0) mmol/L Calcium (8.5-10.1) mg/dL Total Bilirubin (0.2-1.0) mg/dL AST (15-37) U/L ALT (14-59) U/L Alkaline Phosphatase (46-116) U/L Troponin I 0.036 (0.000-0.056) ng/mL B-Natriuretic Peptide 103 H (0-100) pg/ml Total Protein (6.4-8.2) g/dL Albumin (3.4-5.0) g/dL Globulin Albumin/Globulin Ratio Meds: Medications Discontinued Medications Generic Name Dose Route Start Last Admin Trade Name Angie PRN Reason Stop Dose Admin Potassium Chloride 10 meq/ 100 mls @ 100 mls/hr 06/04/20 18:42 06/04/20 18:50 Premix IV 06/04/20 19:41 100 mls/hr ONETIME ONE Administration Sodium Chloride 1,000 mls @ 500 mls/hr 06/04/20 18:45 06/04/20 18:53 Normal Saline IV 250 mls/hr ASDIRECTED MARTÍNEZ Administration Potassium Chloride 20 meq 06/04/20 22:49 06/04/20 22:54 Klor-Con 10 PO 06/04/20 22:50 20 meq ONETIME ONE Administration - Re-Assessments/Exams Free Text/Narrative Re-Assessment/Exam: Anterior chest pain reproducible with palpation. Points epigastric with questioned area of pain. Mild tenderness with palpation. Intermittent dozing. Repeat EKG and troopin unremarkable. Reports pain gone after potassium. Request RX for additional potassium, Reports usually low and has not seen PCP for refills. Departure - Departure Time of Disposition: 22:45 Condition: Good Sepsis Event Note (ED) - Focused Exam Vital Signs: Vital Signs Temp Pulse Resp BP Pulse Ox 06/04/20 17:30 98.1 F 93 18 157/75 H 99
[2020-06-04] MEDS ORDERED: Potassium Chloride 10 MEQ Tab.ER PO ONE (22:49)
== END 2020-06-04 23:03 | disposition home or self-care (01) ==
LOC: DL.ED 17:26
DX: F41.9 Anxiety disorder, unspecified (principal); E87.6 Hypokalemia; K21.9 Gastro-esophageal reflux disease without esophagitis; I12.9 Hypertensive chronic kidney disease with stage 1 through stage 4 chronic kidney disease, or unspecified chronic kidney disease; N18.9 Chronic kidney disease, unspecified; E11.21 Type 2 diabetes mellitus with diabetic nephropathy; E11.22 Type 2 diabetes mellitus with diabetic chronic kidney disease; F17.210 Nicotine dependence, cigarettes, uncomplicated; Z88.2 Allergy status to sulfonamides; Z79.82 Long term (current) use of aspirin; Z79.4 Long term (current) use of insulin; Z79.899 Other long term (current) drug therapy
CPT/HCPCS: 36415; 71045; 80053; 83605; 83880; 84484; 85025; 87040; 93005; 96365; 99283; 99285; A9270; J3480; J7030

== ENCOUNTER 2020-10-01 14:20 | Emergency (ER) | payer MEDICAID, OTHER ==
[2020-10-01 14:33] VITALS: BP 162/81; PULSE 79
--- NOTE | 2020-10-01 14:57 | EDM.PDOC ---
ED HPI GENERAL MEDICAL PROBLEM - General Chief Complaint: Cardiovascular Problem Stated Complaint: AMBULANCE Time Seen by Provider: 10/01/20 14:56 Source of Information: Reports: Patient, Old Records, Provider (MANAGER [employer] from [place], Elaina Diaz), RN, RN Notes Reviewed History Limitations: Reports: No Limitations - History of Present Illness INITIAL COMMENTS - FREE TEXT/NARRATIVE: Patient presents to ED via personal vehicle at the request of her provider at [facility] for hypertension. Report was called to this fha underwriter by Elaina Diaz NP, who states the patient presented to the [facility] for medication management; she was noted to have blood pressure 180s/110s. Patient was given Clonidine 0.1mg x1 with reduction of 170s/100s. An additional dose of Clonidine 0.1mg x1 administered one hour later with reduction in blood pressures to 170s/90s. Provider states it's been 30 minutes following the second dose of Clonidine but feels the patient needs emergency intervention. Upon arrival to this facility the patient's blood pressure 160s/80s. She denies recent illness, fever, shaking chills, headache, vision changes, chest pain, palpitations, or shortness of breath. The patient states she follows with Dr. Barron at [facility] in [place] for CKD; she is currently on Metoprolol, Lasix, and Nifedipine. She states that she takes her medications as prescribed and did take her doses this morning. - Related Data Allergies Allergy/AdvReac Type Severity Reaction Status Date / Time Sulfa (Sulfonamide Allergy Hives Verified 10/01/20 14:35 Antibiotics) sulfacetamide Allergy Rash Verified 10/01/20 14:35 Home Meds: Home Meds Aspirin [Ecotrin EC] 81 tab PO BEDTIME 10/29/14 [History] Insulin Detemir [Levemir] 50 units SQ BID 10/29/14 [History] metFORMIN [Glucophage] 1,000 mg PO BID 10/29/14 [History] Gabapentin [Neurontin] 600 mg PO TID 07/23/17 [History] Saxagliptin HCl [Onglyza] 5 mg PO BEDTIME 07/23/17 [History] glipiZIDE [Glucotrol] 10 mg PO BEDTIME 12/03/18 [History] Magnesium Oxide 250 mg PO BIDM 10 Days #20 tablet 12/04/18 [Rx] levoFLOXacin [Levaquin] 500 mg PO DAILY 5 Days #5 tab 12/04/18 [Rx] Bumetanide 1 mg PO DAILY 02/09/19 [History] Ferrous Gluconate 324 mg PO DAILY 02/09/19 [History] Insulin Aspart [NovoLOG] 15 units SQ TIDMEALS 02/09/19 [History] Losartan [Cozaar] 100 mg PO DAILY 02/09/19 [History] Menthol/Methyl Salicylate [Icy Hot Cream] 35.4 gm TP TID PRN 02/09/19 [History] Metoprolol Succinate [Toprol XL 50mg] 50 mg PO DAILY 02/09/19 [History] Multivitamin [Multivitamins] 1 cap PO DAILY 02/09/19 [History] Omeprazole 20 mg PO DAILY 02/09/19 [History] Potassium Chloride 20 meq PO BID 02/09/19 [History] atorvaSTATin Calcium [Atorvastatin Calcium] 80 mg PO BEDTIME 02/09/19 [History] lisinopriL [Lisinopril] 2.5 mg PO DAILY 02/09/19 [History] Past Medical History - Past Health History Medical/Surgical History: Denies Medical/Surgical History HEENT History: Reports: Cataract, Impaired Vision Other HEENT History: WEARS GLASSES Cardiovascular History: Reports: High Cholesterol, Hypertension Respiratory History: Reports: Bronchitis, Recurrent Gastrointestinal History: Reports: GERD Genitourinary History: Reports: Chronic Renal Insuffiency, Diabetic Nephropathy [employer]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: Musculoskeletal History: Reports: None Neurological History: Reports: None Psychiatric History: Reports: None Endocrine/Metabolic History: Reports: Diabetes, Type II, Obesity/BMI 30+ Hematologic History: Reports: Anemia Immunologic History: Reports: None Oncologic (Cancer) History: Reports: None Dermatologic History: Reports: None - Infectious Disease History Infectious Disease History: Reports: Chicken Pox - Past Surgical History Head Surgeries/Procedures: Reports: None HEENT Surgical History: Reports: Detached Retina, Eye Surgery Respiratory Surgical History: Reports: None GI Surgical History: Reports: Cholecystectomy Female Surgical History: Reports: None Endocrine Surgical History: Reports: None Neurological Surgical History: Reports: None Musculoskeletal Surgical History: Reports: None Oncologic Surgical History: Reports: None Social & Family History - Family History Family Medical History: No Pertinent Family History HEENT: Reports: None Cardiac: Reports: None Respiratory: Reports: None OBGYN: Reports: Neurological: Reports: None Endocrine/Metabolic: Reports: Diabetes, type II - Tobacco Use Tobacco Use Status *Q: Former Tobacco User Used Tobacco, but Quit: Yes Month/Year Tobacco Last Used: 08/09 - Caffeine Use Caffeine Use: Reports: Soda - Recreational Drug Use Recreational Drug Use: No - Living Situation & Occupation Living situation: Reports: Single Occupation: Unemployed ED ROS GENERAL - Review of Systems Review Of Systems: Comprehensive ROS is negative, except as noted in HPI. ED EXAM, GENERAL - Physical Exam Exam: See Below Exam Limited By: No Limitations General Appearance: Alert, No Apparent Distress Eye Exam: Bilateral Eye: EOMI, Normal Inspection, PERRL (3mm) Ears: Normal External Exam, Normal Canal, Hearing Grossly Normal, Normal TMs Ear Exam: Bilateral Ear: Auricle Normal, Canal Normal, TM normal Nose: Normal Inspection, Normal Mucosa, No Blood Throat/Mouth: Normal Inspection, Normal Lips, Normal Teeth, Normal Gums, Normal Oropharynx, Normal Voice, No Airway Compromise Head: Atraumatic, Normocephalic Neck: Normal Inspection, Supple, Non-Tender, Full Range of Motion. No: Lymphadenopathy (L), Lymphadenopathy (R) Respiratory/Chest: No Respiratory Distress, Lungs Clear, Normal Breath Sounds, No Accessory Muscle Use, Chest Non-Tender. No: Crackles, Rales, Rhonchi, Wheezing, Stridor Cardiovascular: Normal Peripheral Pulses, Regular Rate, Rhythm, No Gallop, No JVD, No Murmur, No Rub. No: No Edema Peripheral Pulses: 2+: Radial (L), Radial (R), Dorsalis Pedis (L), Dorsalis Pedis (R) GI/Abdominal: Normal Bowel Sounds, Soft, Non-Tender, No Distention, No Abnormal Bruit, No Mass, Pelvis Stable (Female) Exam: Deferred Rectal (Female) Exam: Deferred Back Exam: Normal Inspection, Full Range of Motion Extremities: Normal Range of Motion, Non-Tender, Normal Capillary Refill, Pedal Edema (+2 pitting, bilaterally) Neurological: Alert, Oriented, CN II-XII Intact, Normal Cognition, Normal Gait, Normal Reflexes, No Motor/Sensory Deficits Psychiatric: Normal Affect, Normal Mood Skin Exam: Warm, Dry, Normal Color, No Rash. No: Ecchymosis, Erythema, Jaundice, Mottled, Pallor, Petechiae #1 Interpretation EKG Date: 10/01/20 Time: 15:07 Rhythm: NSR Rate (Beats/Min): 73 [place]: Normal P-Wave: Present QRS: Normal ST-T: Normal QT: Normal CO/PQ Interval: 0.17 Comparison: No Change EKG Interpretation Comments: NSR; No evidence of myocardial ischemia Course - Vital Signs Last Recorded V/S: Last Vital Signs Temp 97.0 F 10/01/20 14:32 Pulse 79 10/01/20 14:32 Resp 18 10/01/20 14:32 BP 162/81 H 10/01/20 14:32 Pulse Ox 98 10/01/20 14:32 - Orders/Labs/Meds Labs: Laboratory Tests 10/01/20 10/01/20 Range/Units 15:06 15:06 WBC 9.4 (5.0-10.0) 10^3/uL RBC 3.19 L (4.2-5.4) 10^6/uL Hgb 9.5 L (12.0-16.0) g/dL Hct 28.3 L (37.0-47.0) % MCV 88.7 D (80-100) fL MCH 29.8 (27.0-34.0) pg MCHC 33.6 (33.0-35.0) g/dL Plt Count 360 (150-450) 10^3/uL Neut % (Auto) 67.3 (42.2-75.2) % Lymph % (Auto) 26.1 (20.5-50.1) % [place] % (Auto) 4.6 (2-8) % Eos % (Auto) 1.6 (1.0-3.0) % Baso % (Auto) 0.4 (0.0-1.0) % Sodium 131 L (136-145) mmol/L Potassium 4.2 (3.5-5.1) mmol/L Chloride 98 (98-107) mmol/L Carbon Dioxide 23 (21-32) mmol/L Anion Gap 14.2 H (7-13) mEq/L BUN 19 H (7-18) mg/dL Creatinine 2.13 H (0.55-1.02) mg/dL Est Cr Clr Drug Dosing 34.00 mL/min Estimated GFR (MDRD) 25 BUN/Creatinine Ratio 8.9 (No establ ref range) Glucose 437 H* (74-99) mg/dL Calcium 8.5 D (8.5-10.1) mg/dL Total Bilirubin 0.2 (0.2-1.0) mg/dL AST 12 L (15-37) U/L ALT 23 (14-59) U/L Alkaline Phosphatase 86 (46-116) U/L Troponin I < 0.017 (0.000-0.056) ng/mL B-Natriuretic Peptide 69 (0-100) pg/ml Total Protein 7.0 (6.4-8.2) g/dL Albumin 2.0 L (3.4-5.0) g/dL Globulin 5.0 Albumin/Globulin Ratio 0.40 - Re-Assessments/Exams Free Text/Narrative Re-Assessment/Exam: 10/01/20 CBC unremarkable for acute processes, no evidence of infection appreciated. Normocytic normochromic anemia noted with Hgb 9.5; etiology could be dilutional or due to chronic disease as patient denies any signs of active bleeding, hematemesis, or dark tarry stools. Chronic kidney function noted with Creatinine of 2.19, BUN 19, and GFR of 25. Patient states she is due to see Dr. Barron again in early October; encouraged her to move this appointment up due to hypertension, pitting edema, and kidney function markers. Troponin WNL. BNP WNL at 69. Will increase Bumex to 1.5mg for the next 7 days. Patient to follow up with primary care provider in seven days and Dr. Barron regarding today's visit. Red flag signs and symptoms which would warrant reevaluation reviewed. Patient verbalized understanding and agreement with the plan of care. Departure - Departure Time of Disposition: 15:47 Disposition: Home, Self-Care 01 Condition: Good Clinical Impression: Hyperglycemia, Hyponatremia Chronic kidney disease Qualifiers: Chronic kidney disease stage: unspecified stage Qualified Code(s): N18.9 - Chronic kidney disease, unspecified Anemia Qualifiers: Anemia type: unspecified type Qualified Code(s): D64.9 - Anemia, unspecified Forms: ED Department Discharge Additional Instructions: Rx: Bumex 1.) Increase your Bumex over the next week to 1.5mg, daily 2.) Follow up with your primary care provider in 3-5 days regarding today's visit, including high blood pressure and increase in Bumex 3.) Return to the emergency department with any fever, shaking chills, chest pain, or persistent shortness of breath. Sepsis Event Note (ED) - Evaluation Sepsis Screening Result: No Definite Risk
[2020-10-01 15:31] LABS: ANION GAP 14.2 mEq/L (7-13); CHLORIDE,CL 98 mmol/L (98-107); SODIUM,NA 131 mmol/L (136-145)
--- NOTE | 2020-10-03 12:34 | CR ---
EXAMINATION: Chest 1V Frontal SEX: Female AGE: 44 years CLINICAL HISTORY: 44-year-old female complaining of shortness of breath (SOB). INTERPRETATION: 1. Chronic borderline cardiomegaly unchanged since comparison CXR 04 June 2020. 2. No new pulmonary vascular congestion, cephalization of flow, alveolar edema or dependent pleural fluid accumulation (effusions). No peripheral Yvan B lines. 3. No new lung mass or hilar lymphadenopathy. 4. No focal lobar alveolar consolidation, air bronchograms, or peripheral "groundglass" interstitial lung densities. 5. No pneumothorax or pneumomediastinum. No free subdiaphragmatic air. CONCLUSION: No acute new cardiopulmonary abnormality (CXR). CONCLUSION:
== END 2020-10-01 16:17 | disposition home or self-care (01) ==
LOC: DL.ED 14:20
DX: I12.9 Hypertensive chronic kidney disease with stage 1 through stage 4 chronic kidney disease, or unspecified chronic kidney disease (principal); E11.22 Type 2 diabetes mellitus with diabetic chronic kidney disease; N18.9 Chronic kidney disease, unspecified; D63.1 Anemia in chronic kidney disease; E11.65 Type 2 diabetes mellitus with hyperglycemia; E87.1 Hypo-osmolality and hyponatremia; E66.9 Obesity, unspecified; E11.21 Type 2 diabetes mellitus with diabetic nephropathy; K21.9 Gastro-esophageal reflux disease without esophagitis; E78.00 Pure hypercholesterolemia, unspecified; Z87.891 Personal history of nicotine dependence; Z88.2 Allergy status to sulfonamides; Z79.82 Long term (current) use of aspirin; Z79.4 Long term (current) use of insulin; Z79.899 Other long term (current) drug therapy
CPT/HCPCS: 36415; 71045; 80053; 83880; 84484; 85025; 93005; 93010; 99284; 99284-25

== ENCOUNTER 2020-10-18 15:05 | Emergency (ER) | payer MEDICAID ==
--- NOTE | 2020-10-18 15:52 | EDM.PDOC ---
<Oscar Valdes Jo Ann - Last Filed: 10/18/20 17:20> ED HPI GENERAL MEDICAL PROBLEM - General Chief Complaint: Chest Pain Stated Complaint: HIGH BP AND SUGAR HIGH Time Seen by Provider: 10/18/20 15:47 Source of Information: Reports: Patient History Limitations: Reports: No Limitations - History of Present Illness INITIAL COMMENTS - FREE TEXT/NARRATIVE: 44 y/o F c/o CP, todd, blurry vision, feet swelling, unsteady gait, and dry mouth since last night. Hx of HTN, Type II diabetes. Pt was at work and her coworkers told her she looked bad and that she needed to go to the er. CP is pressure in nature, constant, non radiating. Pt drove herself to the ER for evaluation. Denies fever, cough, chills, drugs, etoh, abd pn, difficulty voiding, constipation. Duration: Day(s): Location: Reports: Generalized Severity: Mild Improves with: Reports: None Worsens with: Reports: None - Related Data Allergies Allergy/AdvReac Type Severity Reaction Status Date / Time Sulfa (Sulfonamide Allergy Hives Verified 10/01/20 14:35 Antibiotics) sulfacetamide Allergy Rash Verified 10/01/20 14:35 Home Meds: Home Meds Aspirin [Ecotrin EC] 81 tab PO BEDTIME 10/29/14 [History] Insulin Detemir [Levemir] 50 units SQ BID 10/29/14 [History] metFORMIN [Glucophage] 1,000 mg PO BID 10/29/14 [History] Gabapentin [Neurontin] 600 mg PO TID 07/23/17 [History] Saxagliptin HCl [Onglyza] 5 mg PO BEDTIME 07/23/17 [History] glipiZIDE [Glucotrol] 10 mg PO BEDTIME 12/03/18 [History] Magnesium Oxide 250 mg PO BIDM 10 Days #20 tablet 12/04/18 [Rx] levoFLOXacin [Levaquin] 500 mg PO DAILY 5 Days #5 tab 12/04/18 [Rx] Bumetanide 1 mg PO DAILY 02/09/19 [History] Ferrous Gluconate 324 mg PO DAILY 02/09/19 [History] Insulin Aspart [NovoLOG] 15 units SQ TIDMEALS 02/09/19 [History] Losartan [Cozaar] 100 mg PO DAILY 02/09/19 [History] Menthol/Methyl Salicylate [Icy Hot Cream] 35.4 gm TP TID PRN 02/09/19 [History] Metoprolol Succinate [Toprol XL 50mg] 50 mg PO DAILY 02/09/19 [History] Multivitamin [Multivitamins] 1 cap PO DAILY 02/09/19 [History] Omeprazole 20 mg PO DAILY 02/09/19 [History] Potassium Chloride 20 meq PO BID 02/09/19 [History] atorvaSTATin Calcium [Atorvastatin Calcium] 80 mg PO BEDTIME 02/09/19 [History] lisinopriL [Lisinopril] 2.5 mg PO DAILY 02/09/19 [History] Past Medical History - Past Health History Medical/Surgical History: Denies Medical/Surgical History HEENT History: Reports: Cataract, Impaired Vision Other HEENT History: WEARS GLASSES Cardiovascular History: Reports: High Cholesterol, Hypertension Respiratory History: Reports: Bronchitis, Recurrent Gastrointestinal History: Reports: GERD Genitourinary History: Reports: Chronic Renal Insuffiency, Diabetic Nephropathy 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: Musculoskeletal History: Reports: None Neurological History: Reports: None Psychiatric History: Reports: None Endocrine/Metabolic History: Reports: Diabetes, Type II Hematologic History: Reports: Anemia Immunologic History: Reports: None Oncologic (Cancer) History: Reports: None Dermatologic History: Reports: None - Infectious Disease History Infectious Disease History: Reports: Chicken Pox - Past Surgical History Head Surgeries/Procedures: Reports: None HEENT Surgical History: Reports: Detached Retina, Eye Surgery Respiratory Surgical History: Reports: None GI Surgical History: Reports: Cholecystectomy Female Surgical History: Reports: None Endocrine Surgical History: Reports: None Neurological Surgical History: Reports: None Musculoskeletal Surgical History: Reports: None Oncologic Surgical History: Reports: None Social & Family History - Family History Family Medical History: No Pertinent Family History HEENT: Reports: None Cardiac: Reports: None Respiratory: Reports: None OBGYN: Reports: Neurological: Reports: None Endocrine/Metabolic: Reports: Diabetes, type II - Caffeine Use Caffeine Use: Reports: Soda - Living Situation & Occupation Living situation: Reports: Single Occupation: Unemployed ED ROS GENERAL - Review of Systems Review Of Systems: Comprehensive ROS is negative, except as noted in HPI. ED EXAM, GENERAL - Physical Exam Exam: See Below Exam Limited By: No Limitations General Appearance: Alert, WD/WN, No Apparent Distress Eye Exam: Bilateral Eye: PERRL Ears: Normal External Exam, Normal Canal, Hearing Grossly Normal, Normal TMs Nose: Normal Inspection, Normal Mucosa, No Blood Throat/Mouth: Normal Inspection, Normal Lips, Normal Teeth, Normal Gums, Normal Oropharynx, Normal Voice, No Airway Compromise Head: Atraumatic, Normocephalic Neck: Normal Inspection, Supple, Non-Tender, Full Range of Motion Respiratory/Chest: No Respiratory Distress, Lungs Clear, Normal Breath Sounds, No Accessory Muscle Use, Chest Non-Tender Cardiovascular: Normal Peripheral Pulses, Regular Rate, Rhythm, No Edema, No Gallop, No JVD, No Murmur, No Rub GI/Abdominal: Soft, Non-Tender (Female) Exam: Deferred Rectal (Female) Exam: Deferred Back Exam: Normal Inspection, Full Range of Motion, NT Extremities: Normal Inspection, Normal Range of Motion, Non-Tender, Normal Capillary Refill, No Pedal Edema Neurological: Alert, Oriented, CN II-XII Intact, Normal Cognition, Normal Gait, Normal Reflexes, No Motor/Sensory Deficits Psychiatric: Normal Affect, Normal Mood Skin Exam: Warm, Dry, Intact, Normal Color, No Rash Lymphatic: No Adenopathy #1 Interpretation EKG Date: 10/18/20 Time: 15:46 Rhythm: Other (sinus) Rate (Beats/Min): 97 [place]: Normal P-Wave: Present QRS: Normal ST-T: Normal QT: Normal EKG Interpretation Comments: sinus rhythm, normal axis, no visible hypertrophy, normal r wave progression, no ectopy or st changes. 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 Adhere to a diabetic diet to improve your diabetes and overall health. Continue to take your medications as prescribed. <Jed Lerma - Last Filed: 10/18/20 17:24> Course - Vital Signs Last Recorded V/S: Last Vital Signs Temp 98.1 F 10/18/20 15:40 Pulse 92 10/18/20 15:40 Resp 16 10/18/20 15:40 BP 150/71 H 10/18/20 15:40 Pulse Ox 99 10/18/20 15:40 - Orders/Labs/Meds Orders: Active Orders 24 hr Category Date Time Status EKG Documentation Completion [RC] STAT Care 10/18/20 15:53 Active Labs: Laboratory Tests 10/18/20 10/18/20 10/18/20 Range/Units 15:33 15:51 15:51 WBC 10.0 (5.0-10.0) 10^3/uL RBC 3.29 L (4.2-5.4) 10^6/uL Hgb 9.7 L (12.0-16.0) g/dL Hct 29.4 L (37.0-47.0) % MCV 89.4 (80-100) fL MCH 29.5 (27.0-34.0) pg MCHC 33.0 (33.0-35.0) g/dL Plt Count 332 (150-450) 10^3/uL Neut % (Auto) 65.8 (42.2-75.2) % Lymph % (Auto) 28.4 (20.5-50.1) % [place] % (Auto) 4.4 (2-8) % Eos % (Auto) 0.9 L (1.0-3.0) % Baso % (Auto) 0.5 (0.0-1.0) % Sodium 138 (136-145) mmol/L Potassium 3.6 (3.5-5.1) mmol/L Chloride 103 (98-107) mmol/L Carbon Dioxide 27 (21-32) mmol/L Anion Gap 11.6 (7-13) mEq/L BUN 38 H (7-18) mg/dL Creatinine 2.71 H (0.55-1.02) mg/dL Est Cr Clr Drug Dosing TNP Estimated GFR (MDRD) 19 BUN/Creatinine Ratio 14.0 (No establ ref range) Glucose 213 H (74-99) mg/dL POC Glucose 250 H (70-105) mg/dl Calcium 10.9 H D (8.5-10.1) mg/dL Magnesium 2.2 (1.8-2.4) mg/dL Total Bilirubin 0.2 (0.2-1.0) mg/dL AST 20 (15-37) U/L ALT 31 (14-59) U/L Alkaline Phosphatase 81 (46-116) U/L Troponin I 0.023 (0.000-0.056) ng/mL Total Protein 7.4 (6.4-8.2) g/dL Albumin 2.3 L (3.4-5.0) g/dL Globulin 5.1 Albumin/Globulin Ratio 0.45 Lipase 175 (73-393) U/L TSH, Ultra Sensitive 2.28 (0.36-3.74) uIU/mL Urine Color (YELLOW) Urine Appearance (CLEAR) Urine pH (5.0-9.0) Ur Specific [place] (1.005-1.030) Urine Protein (NEGATIVE) Urine Glucose (UA) (NEGATIVE) Urine Ketones (NEGATIVE) Urine Occult Blood (NEGATIVE) Urine Nitrite (NEGATIVE) Urine Bilirubin (NEGATIVE) Urine Urobilinogen (0.2-1.0) mg/dL Ur Leukocyte Esterase (NEGATIVE) U Hyaline Cast (Auto) Urine RBC /HPF Urine WBC (0-5/HPF) /HPF Ur Epithelial Cells (NOT SEEN) /HPF Urine Bacteria (0-FEW/HPF) /HPF Fine Granular Casts (NOT SEEN) /LPF Urine Mucus (NOT SEEN) /LPF Urine Opiates Screen (NEGATIVE) Ur Oxycodone Screen (NEGATIVE) Urine Methadone Screen (NEGATIVE) Ur Barbiturates Screen (NEGATIVE) U Tricyclic Antidepress (NEGATIVE) Ur Phencyclidine Scrn (NEGATIVE) Ur Amphetamine Screen (NEGATIVE) U Methamphetamines Scrn (NEGATIVE) Urine MDMA Screen (NEGATIVE) U Benzodiazepines Scrn (NEGATIVE) Urine Cocaine Screen (NEGATIVE) U Marijuana (THC) Screen (NEGATIVE) 10/18/20 10/18/20 Range/Units 17:00 17:00 WBC (5.0-10.0) 10^3/uL RBC (4.2-5.4) 10^6/uL Hgb (12.0-16.0) g/dL Hct (37.0-47.0) % MCV (80-100) fL MCH (27.0-34.0) pg MCHC (33.0-35.0) g/dL Plt Count (150-450) 10^3/uL Neut % (Auto) (42.2-75.2) % Lymph % (Auto) (20.5-50.1) % [place] % (Auto) (2-8) % Eos % (Auto) (1.0-3.0) % Baso % (Auto) (0.0-1.0) % Sodium (136-145) mmol/L Potassium (3.5-5.1) mmol/L Chloride (98-107) mmol/L Carbon Dioxide (21-32) mmol/L Anion Gap (7-13) mEq/L BUN (7-18) mg/dL Creatinine (0.55-1.02) mg/dL Est Cr Clr Drug Dosing Estimated GFR (MDRD) BUN/Creatinine Ratio (No establ ref range) Glucose (74-99) mg/dL POC Glucose (70-105) mg/dl Calcium (8.5-10.1) mg/dL Magnesium (1.8-2.4) mg/dL Total Bilirubin (0.2-1.0) mg/dL AST (15-37) U/L ALT (14-59) U/L Alkaline Phosphatase (46-116) U/L Troponin I (0.000-0.056) ng/mL Total Protein (6.4-8.2) g/dL Albumin (3.4-5.0) g/dL Globulin Albumin/Globulin Ratio Lipase (73-393) U/L TSH, Ultra Sensitive (0.36-3.74) uIU/mL Urine Color Yellow (YELLOW) Urine Appearance Clear (CLEAR) Urine pH 5.5 (5.0-9.0) Ur Specific [place] 1.025 (1.005-1.030) Urine Protein >=300 H (NEGATIVE) Urine Glucose (UA) 500 H (NEGATIVE) Urine Ketones Negative (NEGATIVE) Urine Occult Blood Trace-intact H (NEGATIVE) Urine Nitrite Negative (NEGATIVE) Urine Bilirubin Negative (NEGATIVE) Urine Urobilinogen 0.2 (0.2-1.0) mg/dL Ur Leukocyte Esterase Negative (NEGATIVE) U Hyaline Cast (Auto) Moderate Urine RBC 0-5 /HPF Urine WBC 0-5 (0-5/HPF) /HPF Ur Epithelial Cells Moderate H (NOT SEEN) /HPF Urine Bacteria Rare (0-FEW/HPF) /HPF Fine Granular Casts Few H (NOT SEEN) /LPF Urine Mucus Few H (NOT SEEN) /LPF Urine Opiates Screen Negative (NEGATIVE) Ur Oxycodone Screen Negative (NEGATIVE) Urine Methadone Screen Negative (NEGATIVE) Ur Barbiturates Screen Negative (NEGATIVE) U Tricyclic Antidepress Negative (NEGATIVE) Ur Phencyclidine Scrn Negative (NEGATIVE) Ur Amphetamine Screen Negative (NEGATIVE) U Methamphetamines Scrn Negative (NEGATIVE) Urine MDMA Screen Negative (NEGATIVE) U Benzodiazepines Scrn Negative (NEGATIVE) Urine Cocaine Screen Negative (NEGATIVE) U Marijuana (THC) Screen Negative (NEGATIVE) - Re-Assessments/Exams Free Text/Narrative Re-Assessment/Exam: 10/18/20 I personally performed or re-performed the physical examination and medical decision making. I have verified all student documentation or findings, including history, physical exam and/or medical decision making. Sepsis Event Note (ED) - Focused Exam Vital Signs: Vital Signs Temp Pulse Resp BP Pulse Ox 10/18/20 15:40 98.1 F 92 16 150/71 H 99
[2020-10-18 16:24] LABS: ANION GAP 11.6 mEq/L (7-13); CHLORIDE,CL 103 mmol/L (98-107); SODIUM,NA 138 mmol/L (136-145)
[2020-10-18 16:46] VITALS: BP 150/71; PULSE 92
== END 2020-10-18 17:44 | disposition home or self-care (01) ==
LOC: DL.ED 15:05
DX: R07.9 Chest pain, unspecified (principal); I10 Essential (primary) hypertension; K21.9 Gastro-esophageal reflux disease without esophagitis; E78.00 Pure hypercholesterolemia, unspecified; I12.9 Hypertensive chronic kidney disease with stage 1 through stage 4 chronic kidney disease, or unspecified chronic kidney disease; N18.9 Chronic kidney disease, unspecified; E11.22 Type 2 diabetes mellitus with diabetic chronic kidney disease; E11.21 Type 2 diabetes mellitus with diabetic nephropathy; Z79.82 Long term (current) use of aspirin; Z79.4 Long term (current) use of insulin; Z79.899 Other long term (current) drug therapy; Z88.2 Allergy status to sulfonamides
CPT/HCPCS: 36415; 80053; 80305-QW; 81001; 82962; 83690; 83735; 84443; 84484; 85025; 93005; 93010; 99284; 99285-25

== ENCOUNTER 2020-12-25 15:08 | Emergency (ER) | payer MEDICAID ==
[2020-12-25] MEDS ORDERED: Sodium Chloride 0.9% 10 ML Syringe FLUSH PRN (15:25)
[2020-12-25] MEDS ORDERED: Insulin Regular, Human 100 Units/ML 3 ML Vial IV ONE ×2 (15:26→16:48)
[2020-12-25] MEDS ORDERED: Ondansetron 4 MG/2 ML SDV IV ONE (15:26)
[2020-12-25] MEDS ORDERED: Sodium Chloride 0.9% 1,000 ML IV ONE (15:26)
[2020-12-25 15:29] VITALS: BP 199/98; PULSE 90
[2020-12-25 16:25] LABS: ANION GAP 17.1 mEq/L (7-13); CHLORIDE,CL 94 mmol/L (98-107); SODIUM,NA 127 mmol/L (136-145)
[2020-12-25 16:59] LABS: BASE EXCESS ARTERIAL -5 mmol/L ((-2)-(+3)); BICARBONATE,ARTERIAL 19.6 mmol/L (22-26); O2 DELIVERY DEVICE ROOM AIR; O2 SATURATION ARTERIAL 98 % (95-100); PCO2 ARTERIAL 38 mmHg (35-45); PO2 ARTERIAL 84 mmHg (70-100)
[2020-12-25 17:00] LABS: ALLEN TEST PERFORMED
--- NOTE | 2020-12-25 18:07 | EDM.PDOC ---
Scribed by Katerine Allan 12/25/20 1620 for Jed Lerma MD ED HPI GENERAL MEDICAL PROBLEM - General Chief Complaint: Diabetic Complaint Stated Complaint: HIGH BLOOD SUGAR / SENT FROM [facility] Time Seen by Provider: 12/25/20 15:49 Source of Information: Reports: Patient, RN, RN Notes Reviewed History Limitations: Reports: No Limitations - History of Present Illness INITIAL COMMENTS - FREE TEXT/NARRATIVE: Patient presents to ED by POV stating she was seen at the clinic for a check up and her blood sugar was over 600. Sent to the ER for evaluation. Only reports some fogginess and dizziness occasionally. Did not take her insulin today. No nausea or vomiting. No respiratory distress. Denies fevers or illness. Onset: Today Duration: Constant Severity: Severe Improves with: Reports: None Worsens with: Reports: None Associated Symptoms: Reports: No Other Symptoms - Related Data Allergies Allergy/AdvReac Type Severity Reaction Status Date / Time Sulfa (Sulfonamide Allergy Hives Verified 10/01/20 14:35 Antibiotics) sulfacetamide Allergy Rash Verified 10/01/20 14:35 Home Meds: Home Meds Aspirin [Ecotrin EC] 81 tab PO BEDTIME 10/29/14 [History] Insulin Detemir [Levemir] 50 units SQ BID 10/29/14 [History] Gabapentin [Neurontin] 300 mg PO TID 07/23/17 [History] glipiZIDE [Glucotrol] 20 mg PO BEDTIME 12/03/18 [History] Bumetanide 1 mg PO DAILY 02/09/19 [History] Ferrous Gluconate 324 mg PO DAILY 02/09/19 [History] Insulin Aspart [NovoLOG] 20 units SQ TIDMEALS 02/09/19 [History] Metoprolol Succinate [Toprol XL 50mg] 50 mg PO DAILY 02/09/19 [History] Multivitamin [Multivitamins] 1 cap PO DAILY 02/09/19 [History] Potassium Chloride 20 meq PO BID 02/09/19 [History] atorvaSTATin Calcium [Atorvastatin Calcium] 80 mg PO BEDTIME 02/09/19 [History] Past Medical History - Past Health History Medical/Surgical History: Denies Medical/Surgical History HEENT History: Reports: Cataract, Impaired Vision Other HEENT History: WEARS GLASSES Cardiovascular History: Reports: High Cholesterol, Hypertension Respiratory History: Reports: Bronchitis, Recurrent Gastrointestinal History: Reports: GERD Genitourinary History: Reports: Chronic Renal Insuffiency, Diabetic Nephropathy 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: Musculoskeletal History: Reports: None Neurological History: Reports: None Psychiatric History: Reports: None Endocrine/Metabolic History: Reports: Diabetes, Type II Hematologic History: Reports: Anemia Immunologic History: Reports: None Oncologic (Cancer) History: Reports: None Dermatologic History: Reports: None - Infectious Disease History Infectious Disease History: Reports: Chicken Pox, Novel Coronavirus - Past Surgical History Head Surgeries/Procedures: Reports: None HEENT Surgical History: Reports: Detached Retina, Eye Surgery Respiratory Surgical History: Reports: None GI Surgical History: Reports: Cholecystectomy Female Surgical History: Reports: None Endocrine Surgical History: Reports: None Neurological Surgical History: Reports: None Musculoskeletal Surgical History: Reports: None Oncologic Surgical History: Reports: None Social & Family History - Family History Family Medical History: No Pertinent Family History HEENT: Reports: None Cardiac: Reports: None Respiratory: Reports: None OBGYN: Reports: Neurological: Reports: None Endocrine/Metabolic: Reports: Diabetes, type II - Tobacco Use Tobacco Use Status *Q: Never Tobacco User Second Hand Smoke Exposure: No - Caffeine Use Caffeine Use: Reports: None - Recreational Drug Use Recreational Drug Use: No - Living Situation & Occupation Living situation: Reports: Single Occupation: Unemployed ED ROS GENERAL - Review of Systems Review Of Systems: Comprehensive ROS is negative, except as noted in HPI. ED EXAM GENERAL NO PERIP PULSE - Physical Exam Exam: See Below Exam Limited By: No Limitations General Appearance: Alert, WD/WN, No Apparent Distress Eye Exam: Bilateral Eye: EOMI, Normal Inspection, PERRL Ears: Normal External Exam, Normal Canal, Hearing Grossly Normal, Normal TMs Nose: Normal Inspection, Normal Mucosa, No Blood Throat/Mouth: Normal Inspection, Normal Lips, Normal Teeth, Normal Gums, Normal Oropharynx, Normal Voice, No Airway Compromise Head: Atraumatic, Normocephalic Neck: Normal Inspection, Supple, Non-Tender, Full Range of Motion Respiratory/Chest: No Respiratory Distress, Lungs Clear, Normal Breath Sounds, No Accessory Muscle Use, Chest Non-Tender Cardiovascular: Normal Peripheral Pulses, Regular Rate, Rhythm, No Edema, No Gallop, No JVD, No Murmur, No Rub GI/Abdominal: Normal Bowel Sounds, Soft, Non-Tender, No Organomegaly, No Diste ntion, No Abnormal Bruit, No Mass (Female) Exam: Deferred Rectal (Female) Exam: Deferred Back Exam: Normal Inspection, Full Range of Motion, NT Extremities: Normal Inspection, Normal Range of Motion, Non-Tender, Normal Capillary Refill, No Pedal Edema Neurological: Alert, Oriented, CN II-XII Intact, Normal Cognition, Normal Gait, Normal Reflexes, No Motor/Sensory Deficits Psychiatric: Normal Affect, Normal Mood Skin Exam: Warm, Dry, Intact, Normal Color, No Rash Course - Vital Signs Last Recorded V/S: Last Vital Signs Temp 97 F 12/25/20 15:26 Pulse 90 12/25/20 15:26 Resp 16 12/25/20 15:26 BP 199/98 H 12/25/20 15:26 Pulse Ox 100 12/25/20 15:26 - Orders/Labs/Meds Orders: Active Orders 24 hr Category Date Time Status Blood Glucose Check, Bedside [RC] ONETIME Care 12/25/20 17:05 Active Peripheral IV Care [RC] . DIRECTED Care 12/25/20 15:25 Active HCG QUALITATIVE,URINE [URCHEM] Stat Lab 12/25/20 15:25 Ordered UA RFX CHOLO AND CULT IF INDIC [URIN] Stat Lab 12/25/20 15:25 Ordered Insulin Regular in 0.9 % NACL [Myxredlin in NS 100 UNIT Med 12/25/20 17:00 Active /100 ML] 100 unit in 100 ml IV TITRATE Sodium Chloride 0.9% [Saline Flush] Med 12/25/20 15:25 Active 10 ml FLUSH ASDIRECTED PRN Peripheral IV Insertion Adult [OM.PC] Stat Oth 12/25/20 15:25 Ordered Medication Orders Insulin Regular in 0.9 % NACL (Myxredlin In Ns 100 Unit/100 Ml) 100 unit in 100 mls @ 8.482 mls/hr IV TITRATE MARTÍNEZ; Protocol Last Admin: 12/25/20 17:07 Dose: 0.1 units/kg/hr, 8.482 mls/hr Documented by: THOMAS Cosigned by: MICHI Sodium Chloride (Sodium Chloride 0.9% 10 Ml Syringe) 10 ml FLUSH ASDIRECTED PRN PRN Reason: Keep Vein Open Last Admin: 12/25/20 16:07 Dose: 10 ml Documented by: MICHI Labs: Laboratory Tests 12/25/20 12/25/20 12/25/20 Range/Units 15:56 15:56 16:01 WBC 7.2 (5.0-10.0) 10^3/uL RBC 3.74 L (4.2-5.4) 10^6/uL Hgb 11.2 L D (12.0-16.0) g/dL Hct 33.4 L (37.0-47.0) % MCV 89.3 (80-100) fL MCH 29.9 (27.0-34.0) pg MCHC 33.5 (33.0-35.0) g/dL Plt Count 281 (150-450) 10^3/uL Neut % (Auto) 65.9 (42.2-75.2) % Lymph % (Auto) 27.2 (20.5-50.1) % [place] % (Auto) 5.1 (2-8) % Eos % (Auto) 1.2 (1.0-3.0) % Baso % (Auto) 0.6 (0.0-1.0) % ABG pH (7.35-7.45) ABG pCO2 (35-45) mmHg ABG pO2 (70-100) mmHg ABG HCO3 (22-26) mmol/L ABG O2 Saturation (95-100) % ABG Base Excess ((-2)-(+3)) mmol/L Nadir Test O2 Delivery Device Sodium 127 L D (136-145) mmol/L Potassium 4.1 (3.5-5.1) mmol/L Chloride 94 L (98-107) mmol/L Carbon Dioxide 20 L (21-32) mmol/L Anion Gap 17.1 H (7-13) mEq/L BUN 26 H (7-18) mg/dL Creatinine 2.88 H (0.55-1.02) mg/dL Est Cr Clr Drug Dosing 24.88 mL/min Estimated GFR (MDRD) 18 BUN/Creatinine Ratio 9.0 (No establ ref range) Glucose 740 H* (70-99) mg/dL POC Glucose > 600 H* (70-99) mg/dL Calcium 8.0 L D (8.5-10.1) mg/dL Total Bilirubin 0.3 (0.2-1.0) mg/dL AST 28 (15-37) U/L ALT 31 (14-59) U/L Alkaline Phosphatase 111 (46-116) U/L Total Protein 7.2 (6.4-8.2) g/dL Albumin 2.1 L (3.4-5.0) g/dL Globulin 5.1 Albumin/Globulin Ratio 0.41 Ketones Negative 12/25/20 12/25/20 Range/Units 16:58 17:47 WBC (5.0-10.0) 10^3/uL RBC (4.2-5.4) 10^6/uL Hgb (12.0-16.0) g/dL Hct (37.0-47.0) % MCV (80-100) fL MCH (27.0-34.0) pg MCHC (33.0-35.0) g/dL Plt Count (150-450) 10^3/uL Neut % (Auto) (42.2-75.2) % Lymph % (Auto) (20.5-50.1) % [place] % (Auto) (2-8) % Eos % (Auto) (1.0-3.0) % Baso % (Auto) (0.0-1.0) % ABG pH 7.34 L (7.35-7.45) ABG pCO2 38 (35-45) mmHg ABG pO2 84 (70-100) mmHg ABG HCO3 19.6 L (22-26) mmol/L ABG O2 Saturation 98 (95-100) % ABG Base Excess -5 L ((-2)-(+3)) mmol/L Nadir Test Performed O2 Delivery Device Room air Sodium (136-145) mmol/L Potassium (3.5-5.1) mmol/L Chloride (98-107) mmol/L Carbon Dioxide (21-32) mmol/L Anion Gap (7-13) mEq/L BUN (7-18) mg/dL Creatinine (0.55-1.02) mg/dL Est Cr Clr Drug Dosing mL/min Estimated GFR (MDRD) BUN/Creatinine Ratio (No establ ref range) Glucose (70-99) mg/dL POC Glucose 400 H (70-99) mg/dL Calcium (8.5-10.1) mg/dL Total Bilirubin (0.2-1.0) mg/dL AST (15-37) U/L ALT (14-59) U/L Alkaline Phosphatase (46-116) U/L Total Protein (6.4-8.2) g/dL Albumin (3.4-5.0) g/dL Globulin Albumin/Globulin Ratio Ketones Meds: Medications Generic Name Dose Route Start Last Admin Trade Name Freq PRN Reason Stop Dose Admin Insulin Regular in 0.9 % NACL 100 unit in 100 mls @ 8.482 mls/hr 12/25/20 17:00 12/25/20 17:07 Myxredlin In Ns 100 Unit/100 Ml IV 0.1 units/kg/hr TITRATE MARTÍNEZ 8.482 mls/hr Administration Protocol 0.1 UNITS/KG/HR Sodium Chloride 10 ml 12/25/20 15:25 12/25/20 16:07 Sodium Chloride 0.9% 10 Ml Syringe FLUSH 10 ml ASDIRECTED PRN Administration Keep Vein Open Discontinued Medications Generic Name Dose Route Start Last Admin Trade Name Freq PRN Reason Stop Dose Admin Sodium Chloride 1,000 mls @ 999 mls/hr 12/25/20 15:26 12/25/20 16:07 Normal Saline IV 12/25/20 16:26 999 mls/hr .BOLUS ONE Administration Insulin Human Regular 10 unit 12/25/20 15:26 12/25/20 16:06 Insulin Regular, Human 100 Units/Ml 3 Ml Vial IV 12/25/20 15:27 10 units ONETIME ONE Administration Insulin Human Regular 10 unit 12/25/20 16:48 12/25/20 16:56 Insulin Regular, Human 100 Units/Ml 3 Ml Vial IV 12/25/20 16:49 10 unit ONETIME ONE Administration Ondansetron HCl 4 mg 12/25/20 15:26 12/25/20 16:07 Ondansetron 4 Mg/2 Ml Sdv IV 12/25/20 15:27 4 mg ONETIME ONE Administration - Re-Assessments/Exams Free Text/Narrative Re-Assessment/Exam: 12/25/20 18:02 Blood glucose down to 400. Pt states she frequently runs in the 400 range. Serum ketone negative, and not acidotic. Plan to d/c pt home. Departure - Departure Time of Disposition: 18:03 Disposition: Home, Self-Care 01 Condition: Good Clinical Impression: Hyperglycemia due to type 2 diabetes mellitus Qualifiers: Diabetes mellitus longterm insulin use: with parts representative use Qualified Code(s): E11.65 - Type 2 diabetes mellitus with hyperglycemia; Z79.4 - MCC (current) use of insulin Uncontrolled diabetes mellitus Qualifiers: Diabetes mellitus type: type 2 Glycemic state: with hyperglycemia Qualified Code(s): E11.65 - Type 2 diabetes mellitus with hyperglycemia - Discharge Information *PRESCRIPTION DRUG MONITORING PROGRAM REVIEWED*: Not Applicable *COPY OF PRESCRIPTION DRUG MONITORING REPORT IN PATIENT KIMMY: Not Applicable Instructions: Hyperglycemia, [id number], Diabetes Mellitus and Standards of Medical Care Forms: ED Department Discharge Additional Instructions: Use your insulin as prescribed this evening. Monitor your blood sugar closely. Follow up in clinic this week for diabetic management. Return to ER if your blood sugar is over 500. Sepsis Event Note (ED) - Evaluation Sepsis Screening Result: No Definite Risk - Focused Exam Vital Signs: Vital Signs Temp Pulse Resp BP Pulse Ox 12/25/20 15:26 97 F 90 16 199/98 H 100 - My Orders Last 24 Hours: My Active Orders 12/25/20 15:25 Peripheral IV Care [RC] . DIRECTED HCG QUALITATIVE,URINE [URCHEM] Stat UA RFX CHOLO AND CULT IF INDIC [URIN] Stat Sodium Chloride 0.9% [Saline Flush] 10 ml FLUSH ASDIRECTED PRN Peripheral IV Insertion Adult [OM.PC] Stat 12/25/20 17:00 Insulin Regular in 0.9 % NACL [Myxredlin in NS 100 UNIT/100 ML] 100 unit in 100 ml IV TITRATE 12/25/20 17:05 Blood Glucose Check, Bedside [] ONETIME - Assessment/Plan Last 24 Hours: My Active Orders 12/25/20 15:25 Peripheral IV Care [RC] . DIRECTED HCG QUALITATIVE,URINE [URCHEM] Stat UA RFX CHOLO AND CULT IF INDIC [URIN] Stat Sodium Chloride 0.9% [Saline Flush] 10 ml FLUSH ASDIRECTED PRN Peripheral IV Insertion Adult [OM.PC] Stat 12/25/20 17:00 Insulin Regular in 0.9 % NACL [Myxredlin in NS 100 UNIT/100 ML] 100 unit in 100 ml IV TITRATE 12/25/20 17:05 Blood Glucose Check, Bedside [] ONETIME I have read and agree with the documentation that has been completed regarding this visit. By signing this record, I attest that the documentation was completed in my physical presence and is an accurate record of the encounter.
== END 2020-12-25 18:19 | disposition home or self-care (01) ==
LOC: DL.ED 15:08
DX: E11.65 Type 2 diabetes mellitus with hyperglycemia (principal); E11.40 Type 2 diabetes mellitus with diabetic neuropathy, unspecified; E11.22 Type 2 diabetes mellitus with diabetic chronic kidney disease; I12.9 Hypertensive chronic kidney disease with stage 1 through stage 4 chronic kidney disease, or unspecified chronic kidney disease; N18.9 Chronic kidney disease, unspecified; Z79.82 Long term (current) use of aspirin; Z79.4 Long term (current) use of insulin; Z86.16 Personal history of COVID-19
CPT/HCPCS: 36415; 36600; 80053; 82009; 82803; 82947; 85025; 96374; 99283; 99284-25; J1815-GY; J2405; J7030

== ENCOUNTER 2021-03-05 16:02 | Emergency (ER) | payer MEDICAID ==
[2021-03-05 16:23] VITALS: BP 124/66; PULSE 66
--- NOTE | 2021-03-05 16:35 | EDM.PDOC ---
<Fragoso,Michaela - Last Filed: 03/05/21 18:47> ED HPI GENERAL MEDICAL PROBLEM - General Chief Complaint: Neurological Problem Stated Complaint: AMBULANCE Time Seen by Provider: 03/05/21 16:10 - History of Present Illness Onset: Gradual - Related Data Allergies Allergy/AdvReac Type Severity Reaction Status Date / Time Sulfa (Sulfonamide Allergy Hives Verified 03/05/21 16:11 Antibiotics) sulfacetamide Allergy Rash Verified 03/05/21 16:11 Home Meds: Home Meds Aspirin [Ecotrin EC] 81 tab PO BEDTIME 10/29/14 [History] Insulin Detemir [Levemir] 50 units SQ BID 10/29/14 [History] Gabapentin [Neurontin] 300 mg PO TID 07/23/17 [History] glipiZIDE [Glucotrol] 20 mg PO BEDTIME 12/03/18 [History] Bumetanide 1 mg PO DAILY 02/09/19 [History] Ferrous Gluconate 324 mg PO DAILY 02/09/19 [History] Insulin Aspart [NovoLOG] 20 units SQ TIDMEALS 02/09/19 [History] Metoprolol Succinate [Toprol XL 50mg] 50 mg PO DAILY 02/09/19 [History] Multivitamin [Multivitamins] 1 cap PO DAILY 02/09/19 [History] Potassium Chloride 20 meq PO BID 02/09/19 [History] atorvaSTATin Calcium [Atorvastatin Calcium] 80 mg PO BEDTIME 02/09/19 [History] Departure - Departure Time of Disposition: 19:01 (]) Disposition: Home, Self-Care 01 Condition: Fair Clinical Impression: Bacterial vaginosis, Dizziness UTI (urinary tract infection) Qualifiers: Urinary tract infection type: site unspecified Hematuria presence: with hematuria Qualified Code(s): N39.0 - Urinary tract infection, site not specified - Discharge Information *PRESCRIPTION DRUG MONITORING PROGRAM REVIEWED*: No *COPY OF PRESCRIPTION DRUG MONITORING REPORT IN PATIENT KIMMY: No Instructions: Urinary Tract Infection, Adult, [id number], Bacterial Vaginosis, [id number], Dizziness, [id number] Forms: ED Department Discharge Additional Instructions: Drink plenty of fluids, water Rx: Cephalexin 500 mg orally twice daily for 10 days Rx: Metronidazole 500 mg orally twice daily for 7 days Follow-up with your primary care provider in the clinic <Maria Elena Laird - Last Filed: 03/12/21 15:53> ED HPI GENERAL MEDICAL PROBLEM - General Source of Information: Reports: Patient, RN, RN Notes Reviewed History Limitations: Reports: No Limitations - History of Present Illness INITIAL COMMENTS - FREE TEXT/NARRATIVE: Anu is a 45 y/o female with a history of chronic renal failure who presents to the ED via [facility] at the request of her provider for elevated creatinine of 3.1, new onset bilateral frontal headache, and persistent dizziness. The patient reports her dizziness and headache began two days ago and has maintained in that time. She has taken transient doses of Tylenol with no alleviation in her symptoms. Additionally, she notes occasionally blurry vision and nausea. She denies fever, shaking chills, cough, sore throat, shortness of breath, vomiting, abdominal pain, diarrhea, dysuria, or hematuria. She does attest to constipation with her last bowel movement yesterday. Her last meal was today at noon which she was unable to finish due to symptoms. Her LMP was February 12. She denies tobacco, alcohol, or recreational drug use. Past Medical History - Past Health History Medical/Surgical History: Denies Medical/Surgical History HEENT History: Reports: Cataract, Impaired Vision Other HEENT History: WEARS GLASSES Cardiovascular History: Reports: High Cholesterol, Hypertension Respiratory History: Reports: Bronchitis, Recurrent Gastrointestinal History: Reports: GERD Genitourinary History: Reports: Chronic Renal Insuffiency, Diabetic Nephropathy [employer] History: Reports: Musculoskeletal History: Reports: None Neurological History: Reports: None Psychiatric History: Reports: None Endocrine/Metabolic History: Reports: Diabetes, Type II Hematologic History: Reports: Anemia Immunologic History: Reports: None Oncologic (Cancer) History: Reports: None Dermatologic History: Reports: None - Infectious Disease History Infectious Disease History: Reports: Chicken Pox, Novel Coronavirus - Past Surgical History Head Surgeries/Procedures: Reports: None HEENT Surgical History: Reports: Detached Retina, Eye Surgery Respiratory Surgical History: Reports: None GI Surgical History: Reports: Cholecystectomy Female Surgical History: Reports: None Endocrine Surgical History: Reports: None Neurological Surgical History: Reports: None Musculoskeletal Surgical History: Reports: None Oncologic Surgical History: Reports: None Social & Family History - Family History Family Medical History: No Pertinent Family History HEENT: Reports: None Cardiac: Reports: None Respiratory: Reports: None OBGYN: Reports: Neurological: Reports: None Endocrine/Metabolic: Reports: Diabetes, type II - Caffeine Use Caffeine Use: Reports: None - Living Situation & Occupation Living situation: Reports: Single Occupation: Unemployed ED ROS GENERAL - Review of Systems Review Of Systems: Comprehensive ROS is negative, except as noted in HPI. ED EXAM, NEURO - Physical Exam Exam: See Below Exam Limited By: No Limitations General Appearance: Alert, No Apparent Distress Eye Exam: Bilateral Eye: EOMI, Normal Inspection, PERRL (3mm) Ears: Normal External Exam, Normal Canal, Hearing Grossly Normal, Normal TMs Nose: Normal Inspection, Normal Mucosa, No Blood Throat/Mouth: Normal Inspection, Normal Voice, No Airway Compromise. No: Normal Lips (Dry, cracked), Normal Oropharynx (Dry mucous membranes) Head Exam: Atraumatic, Normocephalic Neck: Normal Inspection, Supple, Non-Tender, Full Range of Motion Respiratory/Chest: No Respiratory Distress, Lungs Clear, Normal Breath Sounds, No Accessory Muscle Use, Chest Non-Tender Cardiovascular: Normal Peripheral Pulses, Regular Rate, Rhythm, No Edema, No Gallop, No JVD, No Murmur, No Rub GI/Abdominal: Normal Bowel Sounds, Soft, Non-Tender, No Distention, No Abnormal Bruit, No Mass, Pelvis Stable (Female) Exam: Deferred Rectal (Female) Exam: Deferred Neurological: Alert, Normal Mood/Affect, Normal Dorsiflexion, CN II-XII Intact, Normal Plantar Flexion, Normal Gait, Normal Reflexes, No Motor/Sensory Deficits, Oriented x 3, Straight Leg Raise (L), Straight Leg Raise (R). No: Saddle Anesthesia, Difficulty Walking Back Exam: Normal Inspection, Full Range of Motion Extremities: Normal Inspection, Normal Range of Motion, Non-Tender, No Pedal Edema, Normal Capillary Refill Psychiatric: Normal Affect, Normal Mood Skin Exam: Warm, Dry, Intact, Normal Color, No Rash. No: Cyanosis, Ecchymosis, Erythema, Jaundice, Mottled, Pallor, Petechiae #1 Interpretation EKG Date: 03/05/21 Time: 16:27 Rhythm: NSR Rate (Beats/Min): 66 [place]: Normal P-Wave: Present QRS: Normal ST-T: Elevated (<0.2 in V2) QT: Normal IL/PQ Interval: 0.148 Comparison: Change From Previous EKG (Compared to 10-18-20) EKG Interpretation Comments: NSR; q-wave in III; No evidence of acute myocardial ischemia Course - Vital Signs Last Recorded V/S: Last Vital Signs Temp 97.7 F 03/05/21 16:02 Pulse 66 03/05/21 16:02 Resp 15 03/05/21 16:02 BP 124/66 03/05/21 16:02 Pulse Ox 99 03/05/21 16:02 - Orders/Labs/Meds Labs: Laboratory Tests 03/05/21 03/05/21 03/05/21 Range/Units 16:34 16:34 16:34 WBC 10.0 (5.0-10.0) 10^3/uL RBC 3.38 L (4.2-5.4) 10^6/uL Hgb 10.1 L (12.0-16.0) g/dL Hct 30.1 L (37.0-47.0) % MCV 89.1 (80-100) fL MCH 29.9 (27.0-34.0) pg MCHC 33.6 (33.0-35.0) g/dL Plt Count 373 D (150-450) 10^3/uL Neut % (Auto) 66.8 (42.2-75.2) % Lymph % (Auto) 24.8 (20.5-50.1) % Harmon % (Auto) 5.3 (2-8) % Eos % (Auto) 2.6 (1.0-3.0) % Baso % (Auto) 0.5 (0.0-1.0) % Sodium 135 L (136-145) mmol/L Potassium 4.3 (3.5-5.1) mmol/L Chloride 98 (98-107) mmol/L Carbon Dioxide 25 (21-32) mmol/L Anion Gap 16.3 H (7-13) mEq/L BUN 38 H (7-18) mg/dL Creatinine 3.09 H (0.55-1.02) mg/dL Est Cr Clr Drug Dosing 24.03 mL/min Estimated GFR (MDRD) 16 BUN/Creatinine Ratio 12.3 (No establ ref range) Glucose 272 H (70-99) mg/dL Lactic Acid (0.4-2.0) mmol/L Calcium 8.8 (8.5-10.1) mg/dL Magnesium 2.8 H (1.8-2.4) mg/dL Total Bilirubin 0.2 (0.2-1.0) mg/dL AST 20 (15-37) U/L ALT 23 (14-59) U/L Alkaline Phosphatase 92 (46-116) U/L Ammonia 23 (11-32) umol/L Troponin I High Sens 7 (<=51) pg/mL C-Reactive Protein 0.9 (0.0-0.9) mg/dL B-Natriuretic Peptide 147 H (0-100) pg/ml Total Protein 7.1 (6.4-8.2) g/dL Albumin 2.3 L (3.4-5.0) g/dL Globulin 4.8 Albumin/Globulin Ratio 0.48 Urine Color (YELLOW) Urine Appearance (CLEAR) Urine pH (5.0-9.0) Ur Specific [place] (1.005-1.030) Urine Protein (NEGATIVE) Urine Glucose (UA) (NEGATIVE) Urine Ketones (NEGATIVE) Urine Occult Blood (NEGATIVE) Urine Nitrite (NEGATIVE) Urine Bilirubin (NEGATIVE) Urine Urobilinogen (0.2-1.0) mg/dL Ur Leukocyte Esterase (NEGATIVE) Urine RBC (0-5) /HPF Urine WBC (0-5/HPF) /HPF Ur Epithelial Cells (NOT SEEN) /HPF Amorphous Sediment (NOT SEEN) /HPF Urine Bacteria (0-FEW/HPF) /HPF Urine Mucus (NOT SEEN) /LPF Urine Other Urine Opiates Screen (NEGATIVE) Ur Oxycodone Screen (NEGATIVE) Urine Methadone Screen (NEGATIVE) Ur Barbiturates Screen (NEGATIVE) U Tricyclic Antidepress (NEGATIVE) Ur Phencyclidine Scrn (NEGATIVE) Ur Amphetamine Screen (NEGATIVE) U Methamphetamines Scrn (NEGATIVE) Urine MDMA Screen (NEGATIVE) U Benzodiazepines Scrn (NEGATIVE) Urine Cocaine Screen (NEGATIVE) U Marijuana (THC) Screen (NEGATIVE) Ethyl Alcohol < 3 (0) mg/dL 03/05/21 03/05/21 03/05/21 Range/Units 16:34 16:56 16:56 WBC (5.0-10.0) 10^3/uL RBC (4.2-5.4) 10^6/uL Hgb (12.0-16.0) g/dL Hct (37.0-47.0) % MCV (80-100) fL MCH (27.0-34.0) pg MCHC (33.0-35.0) g/dL Plt Count (150-450) 10^3/uL Neut % (Auto) (42.2-75.2) % Lymph % (Auto) (20.5-50.1) % Harmon % (Auto) (2-8) % Eos % (Auto) (1.0-3.0) % Baso % (Auto) (0.0-1.0) % Sodium (136-145) mmol/L Potassium (3.5-5.1) mmol/L Chloride (98-107) mmol/L Carbon Dioxide (21-32) mmol/L Anion Gap (7-13) mEq/L BUN (7-18) mg/dL Creatinine (0.55-1.02) mg/dL Est Cr Clr Drug Dosing mL/min Estimated GFR (MDRD) BUN/Creatinine Ratio (No establ ref range) Glucose (70-99) mg/dL Lactic Acid 0.7 (0.4-2.0) mmol/L Calcium (8.5-10.1) mg/dL Magnesium (1.8-2.4) mg/dL Total Bilirubin (0.2-1.0) mg/dL AST (15-37) U/L ALT (14-59) U/L Alkaline Phosphatase (46-116) U/L Ammonia (11-32) umol/L Troponin I High Sens (<=51) pg/mL C-Reactive Protein (0.0-0.9) mg/dL B-Natriuretic Peptide (0-100) pg/ml Total Protein (6.4-8.2) g/dL Albumin (3.4-5.0) g/dL Globulin Albumin/Globulin Ratio Urine Color Yellow (YELLOW) Urine Appearance Turbid (CLEAR) Urine pH 6.5 (5.0-9.0) Ur Specific [place] 1.025 (1.005-1.030) Urine Protein >=300 H (NEGATIVE) Urine Glucose (UA) 500 H (NEGATIVE) Urine Ketones Negative (NEGATIVE) Urine Occult Blood Trace-intact H (NEGATIVE) Urine Nitrite Negative (NEGATIVE) Urine Bilirubin Negative (NEGATIVE) Urine Urobilinogen 0.2 (0.2-1.0) mg/dL Ur Leukocyte Esterase Small H (NEGATIVE) Urine RBC 20-30 H (0-5) /HPF Urine WBC >100 H (0-5/HPF) /HPF Ur Epithelial Cells Many H (NOT SEEN) /HPF Amorphous Sediment Moderate H (NOT SEEN) /HPF Urine Bacteria Moderate H (0-FEW/HPF) /HPF Urine Mucus Few H (NOT SEEN) /LPF Urine Other See note Urine Opiates Screen Negative (NEGATIVE) Ur Oxycodone Screen Negative (NEGATIVE) Urine Methadone Screen Negative (NEGATIVE) Ur Barbiturates Screen Negative (NEGATIVE) U Tricyclic Antidepress Negative (NEGATIVE) Ur Phencyclidine Scrn Negative (NEGATIVE) Ur Amphetamine Screen Negative (NEGATIVE) U Methamphetamines Scrn Negative (NEGATIVE) Urine MDMA Screen Negative (NEGATIVE) U Benzodiazepines Scrn Negative (NEGATIVE) Urine Cocaine Screen Negative (NEGATIVE) U Marijuana (THC) Screen Negative (NEGATIVE) Ethyl Alcohol (0) mg/dL Meds: Medications Discontinued Medications Generic Name Dose Route Start Last Admin Trade Name Angie PRN Reason Stop Dose Admin Sodium Chloride 1,000 mls @ 999 mls/hr 03/05/21 17:14 03/05/21 17:46 Normal Saline IV 03/05/21 18:14 999 mls/hr .BOLUS ONE Administration Ceftriaxone Sodium 1 gm/ 50 mls @ 100 mls/hr 03/05/21 17:55 03/05/21 18:19 Sodium Chloride IV 03/05/21 18:24 100 mls/hr ONETIME ONE Administration Metronidazole 500 mg 03/05/21 17:55 03/05/21 18:17 Metronidazole 250 Mg Tab PO 03/05/21 17:56 500 mg ONETIME ONE Administration - Radiology Interpretation Free Text/Narrative:: [facility] Final Radiology Report Call: [phone] assistance Online chat: [email or web address] Name: ANU CINTRON Age: 45Years F Date: 03/05/2021 SSN: -- : [id number] Study: CT HEAD WO CONT Requesting Physician: Maria Elena Laird Images: [id number] Addl Studies: Provided Clinical History: Dizziness; New onset headache Contrast: Without Contrast Medium: Contrast Amount: Contrast Method: Page 1 of 2 PROCEDURE INFORMATION: Exam: CT Head Without Contrast Exam date and time: 03/05/2021 5:02 PM Age: 45 years old Clinical indication: Dizziness; Additional info: Dizziness; New onset headache TECHNIQUE: Imaging protocol: Computed tomography of the head without contrast. Radiation optimization: All CT scans at this facility use at least one of these dose optimization techniques: automated exposure control; mA and/or kV adjustment per patient size (includes targeted exams where dose is matched to clinical indication); or iterative reconstruction. COMPARISON: No relevant prior studies available. FINDINGS: Brain: No mass effect or midline shift. No abnormal densities are seen intracranially; no sign of acute intracranial hemorrhage or cerebral edema. Cerebral ventricles: No ventriculomegaly. Paranasal sinuses: Visualized sinuses are unremarkable. No fluid levels. Mastoid air cells: Visualized mastoid air cells are well aerated. Bones/joints: Skull base and overlying calvarium are intact. No lytic or osteosclerotic lesions. Soft tissues: Unremarkable. IMPRESSION: No acute intracranial abnormality. Thank you for allowing us to participate in the care of your patient. Dictated and Authenticated by: Nadir Kulkarni MD 03/05/2021 5:25 PM Central Time ([place] & [place]) - Re-Assessments/Exams Free Text/Narrative Re-Assessment/Exam: 03/05/21 Care of patient transferred to [facility] at 1800.
[2021-03-05 17:04] LABS: ANION GAP 16.3 mEq/L (7-13); CHLORIDE,CL 98 mmol/L (98-107); SODIUM,NA 135 mmol/L (136-145)
[2021-03-05 17:08] LABS: AMPHETAMINES,URINE NEGATIVE (NEGATIVE); BARBITURATES,URINE NEGATIVE (NEGATIVE); BENZODIAZEPINE,URINE NEGATIVE (NEGATIVE); MDMA (ECSTASY), URINE NEGATIVE (NEGATIVE); METHADONE,URINE NEGATIVE (NEGATIVE); METHAMPHETAMINES,URINE NEGATIVE (NEGATIVE); OPIATES,URINE NEGATIVE (NEGATIVE); OXYCODONE,URINE NEGATIVE (NEGATIVE); PHENCYCLIDINE,URINE NEGATIVE (NEGATIVE); TCA,URINE NEGATIVE (NEGATIVE)
[2021-03-05] MEDS ORDERED: Sodium Chloride 0.9% 1,000 ML IV ONE (17:14)
--- NOTE | 2021-03-05 17:26 | CT ---
PROCEDURE INFORMATION: Exam: CT Head Without Contrast Exam date and time: 03/05/2021 5:02 PM Age: 45 years old Clinical indication: Dizziness; Additional info: Dizziness; New onset headache TECHNIQUE: Imaging protocol: Computed tomography of the head without contrast. Radiation optimization: All CT scans at this facility use at least one of these dose optimization techniques: automated exposure control; mA and/or kV adjustment per patient size (includes targeted exams where dose is matched to clinical indication); or iterative reconstruction. COMPARISON: No relevant prior studies available. FINDINGS: Brain: No mass effect or midline shift. No abnormal densities are seen intracranially; no sign of acute intracranial hemorrhage or cerebral edema. Cerebral ventricles: No ventriculomegaly. Paranasal sinuses: Visualized sinuses are unremarkable. No fluid levels. Mastoid air cells: Visualized mastoid air cells are well aerated. Bones/joints: Skull base and overlying calvarium are intact. No lytic or osteosclerotic lesions. Soft tissues: Unremarkable. IMPRESSION: No acute intracranial abnormality.
[2021-03-05] MEDS ORDERED: metroNIDAZOLE 250 MG Tab PO ONE (17:55)
[2021-03-05] MEDS ORDERED: cefTRIAXone 1 GM in Sodium Chloride 0.9% 50 ML IV ONE (17:55)
== END 2021-03-05 19:24 | disposition home or self-care (01) ==
LOC: DL.ED 16:02
DX: N39.0 Urinary tract infection, site not specified (principal); N76.0 Acute vaginitis; B96.89 Other specified bacterial agents as the cause of diseases classified elsewhere; E78.00 Pure hypercholesterolemia, unspecified; E11.21 Type 2 diabetes mellitus with diabetic nephropathy; E11.22 Type 2 diabetes mellitus with diabetic chronic kidney disease; I12.9 Hypertensive chronic kidney disease with stage 1 through stage 4 chronic kidney disease, or unspecified chronic kidney disease; N18.9 Chronic kidney disease, unspecified; Z79.4 Long term (current) use of insulin; Z79.82 Long term (current) use of aspirin; Z79.899 Other long term (current) drug therapy; Z86.16 Personal history of COVID-19; Z88.2 Allergy status to sulfonamides; Z88.8 Allergy status to other drugs, medicaments and biological substances
CPT/HCPCS: 36415; 70450; 80053; 80305; 80307; 81001; 82140; 83605; 83735; 83880; 84484; 85025; 86140; 87086; 87088; 87186; 93005; 93010; 96365; 99284; 99285; A9270; J0696; J7030

== ENCOUNTER 2021-04-17 01:21 | Emergency (ER) | payer MEDICAID | END 2021-04-17 01:44 | disposition left against medical advice (07) | LOC: DL.ED 01:21 | DX: Z53.21 Procedure and treatment not carried out due to patient leaving prior to being seen by health care provider (principal) ==

== ENCOUNTER 2021-04-23 17:19 | Inpatient (IN) | payer MEDICAID ==
[2021-04-23] MEDS ORDERED: Albuterol/Ipratropium 3.0-0.5 MG/3 ML Neb Soln NEB ONE (17:50)
[2021-04-23] MEDS ORDERED: Sodium Chloride 0.9% 10 ML Syringe FLUSH PRN (17:52)
[2021-04-23 18:18] LABS: O2 DELIVERY DEVICE SIMPLE MASK; PCO2 ARTERIAL 29 mmHg (35-45); PO2 ARTERIAL 76 mmHg (70-100)
[2021-04-23 18:19] LABS: ALLEN TEST POSITIVE; BASE EXCESS ARTERIAL -4 mmol/L ((-2)-(+3)); BICARBONATE,ARTERIAL 18.7 mmol/L (22-26); O2 SATURATION ARTERIAL 96 % (95-100)
--- NOTE | 2021-04-23 18:31 | EDM.PDOC ---
Scribed by Katerine Allan 04/23/21 1802 for Jolanta Lerma MD <Jolanta Lerma - Last Filed: 04/23/21 18:29> ED HPI GENERAL MEDICAL PROBLEM - General Chief Complaint: Respiratory Problem Stated Complaint: 98.3 TEMP, SHORTNESS BREATH, COUGH, FATIGUE Time Seen by Provider: 04/23/21 17:43 Source of Information: Reports: Patient, RN, RN Notes Reviewed History Limitations: Reports: No Limitations - History of Present Illness INITIAL COMMENTS - FREE TEXT/NARRATIVE: Patient presents to ED by POV with complaint of shortness of breath worsening over the past 3 days. Patient reports onset of cough, body aches, headache, fever and chills with loss of appetite and severe fatigue 10 days ago. Patient states that she had COVID infection approximately 1 year ago without complications. She has not had COVID vaccine. She has history of diabetes, obesity, hypokalemia, chronic kidney disease and noncompliance with medications. She claims that she has been using her insulin and taking her medications recently. Denies chest pain, abdominal pain, N/V/D, or dysuria. Onset: Gradual Duration: Getting Worse Location: Reports: Chest Severity: Severe Improves with: Reports: None Worsens with: Reports: None Associated Symptoms: Reports: No Other Symptoms Generalized Pain Score (Numeric/FACES): 10 - Related Data Allergies Allergy/AdvReac Type Severity Reaction Status Date / Time Sulfa (Sulfonamide Allergy Hives Verified 03/05/21 16:11 Antibiotics) sulfacetamide Allergy Rash Verified 03/05/21 16:11 Home Meds: Home Meds Aspirin [Ecotrin EC] 81 tab PO BEDTIME 10/29/14 [History] Insulin Detemir [Levemir] 50 units SQ BID 10/29/14 [History] Gabapentin [Neurontin] 300 mg PO TID 07/23/17 [History] glipiZIDE [Glucotrol] 20 mg PO BEDTIME 12/03/18 [History] Bumetanide 1 mg PO DAILY 02/09/19 [History] Ferrous Gluconate 324 mg PO DAILY 02/09/19 [History] Insulin Aspart [NovoLOG] 20 units SQ TIDMEALS 02/09/19 [History] Metoprolol Succinate [Toprol XL 50mg] 50 mg PO DAILY 02/09/19 [History] Multivitamin [Multivitamins] 1 cap PO DAILY 02/09/19 [History] Potassium Chloride 20 meq PO BID 02/09/19 [History] atorvaSTATin Calcium [Atorvastatin Calcium] 80 mg PO BEDTIME 02/09/19 [History] Past Medical History - Past Health History Medical/Surgical History: Denies Medical/Surgical History HEENT History: Reports: Cataract, Impaired Vision Other HEENT History: WEARS GLASSES Cardiovascular History: Reports: High Cholesterol, Hypertension Respiratory History: Reports: Bronchitis, Recurrent Gastrointestinal History: Reports: GERD Genitourinary History: Reports: Chronic Renal Insuffiency, Diabetic Nephropathy 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: Musculoskeletal History: Reports: None Neurological History: Reports: None Psychiatric History: Reports: None Endocrine/Metabolic History: Reports: Diabetes, Type II Hematologic History: Reports: Anemia Immunologic History: Reports: None Oncologic (Cancer) History: Reports: None Dermatologic History: Reports: None - Infectious Disease History Infectious Disease History: Reports: Chicken Pox, Novel Coronavirus - Past Surgical History Head Surgeries/Procedures: Reports: None HEENT Surgical History: Reports: Detached Retina, Eye Surgery Respiratory Surgical History: Reports: None GI Surgical History: Reports: Cholecystectomy Female Surgical History: Reports: None Endocrine Surgical History: Reports: None Neurological Surgical History: Reports: None Musculoskeletal Surgical History: Reports: None Oncologic Surgical History: Reports: None Social & Family History - Family History Family Medical History: No Pertinent Family History HEENT: Reports: None Cardiac: Reports: None Respiratory: Reports: None OBGYN: Reports: Neurological: Reports: None Endocrine/Metabolic: Reports: Diabetes, type II - Caffeine Use Caffeine Use: Reports: Soda - Living Situation & Occupation Living situation: Reports: Single Occupation: Unemployed ED ROS GENERAL - Review of Systems Review Of Systems: Comprehensive ROS is negative, except as noted in HPI. ED EXAM, GENERAL - Physical Exam Exam: See Below Exam Limited By: No Limitations General Appearance: Alert, Mild Distress (with shortness of breath), Obese, Other (Acutely ill, but non-toxic appearing) Eye Exam: Bilateral Eye: EOMI, Normal Inspection, PERRL Ears: Normal External Exam, Hearing Grossly Normal Nose: Normal Inspection, Normal Mucosa, No Blood Throat/Mouth: Normal Lips, Normal Voice, No Airway Compromise Head: Atraumatic, Normocephalic Neck: Normal Inspection, Non-Tender, Full Range of Motion Respiratory/Chest: Lungs Clear, Chest Non-Tender, Decreased Breath Sounds, Other (Increased work of breathing). No: Crackles, Rales, Rhonchi, Wheezing Cardiovascular: Regular Rate, Rhythm, No Edema GI/Abdominal: Normal Bowel Sounds, Soft, Non-Tender Extremities: Normal Inspection, Normal Range of Motion, Non-Tender, Normal Capillary Refill, No Pedal Edema Neurological: Alert, Oriented, CN II-XII Intact, Normal Cognition, No Motor/Sensory Deficits Psychiatric: Anxious, Depressed Mood, Flat Affect Skin Exam: Warm, Dry, Intact, Normal Color, No Rash. No: Ecchymosis, Jaundice, Petechiae Course - Re-Assessments/Exams Free Text/Narrative Re-Assessment/Exam: 04/23/21 19:00 Care of pt transferred to Maria Elena Laird WELFARE VISITOR at shift change. Departure - Departure Disposition: Admitted As Inpatient 66 Clinical Impression: Pneumonia Qualifiers: Pneumonia type: due to unspecified organism Laterality: right Lung location: unspecified part of lung Qualified Code(s): J18.9 - Pneumonia, unspecified organism Chronic kidney disease (CKD) Qualifiers: Chronic kidney disease stage: unspecified stage Qualified Code(s): N18.9 - Chronic kidney disease, unspecified Hyperglycemia due to type 2 diabetes mellitus Qualifiers: Diabetes mellitus childcare worker insulin use: with nursing home use Qualified Code(s): E11.65 - Type 2 diabetes mellitus with hyperglycemia Uncontrolled diabetes mellitus Qualifiers: Diabetes mellitus type: type 2 Glycemic state: with hyperglycemia Qualified Code(s): E11.65 - Type 2 diabetes mellitus with hyperglycemia - Discharge Information <Maria Elena Laird - Last Filed: 04/23/21 23:42> Course - Vital Signs Last Recorded V/S: Last Vital Signs Temp 99.5 F 04/23/21 20:38 Pulse 98 04/23/21 20:38 Resp 20 04/23/21 20:38 BP 153/70 H 04/23/21 20:38 Pulse Ox 96 04/23/21 19:45 - Orders/Labs/Meds Orders: Active Orders 24 hr Category Date Time Status Peripheral IV Care [RC] . DIRECTED Care 04/23/21 17:52 Active RT Aerosol Therapy [RC] ASDIRECTED Care 04/23/21 17:50 Active CULTURE BLOOD [BC] Stat Lab 04/23/21 17:57 Received CULTURE BLOOD [BC] Stat Lab 04/23/21 18:05 Received Insulin Regular in 0.9 % NACL [Myxredlin in NS 100 UNIT Med 04/23/21 19:00 Active /100 ML] 100 unit in 100 ml IV TITRATE Sodium Chloride 0.9% [Saline Flush] Med 04/23/21 17:52 Active 10 ml FLUSH ASDIRECTED PRN Blood Culture x2 Reflex Set [OM.PC] Stat Oth 04/23/21 17:51 Ordered Peripheral IV Insertion Adult [OM.PC] Stat Oth 04/23/21 17:52 Ordered Medication Orders Acetaminophen (Acetaminophen 325 Mg Tab) 650 mg PO Q4H PRN PRN Reason: Pain (Mild 1-3)/fever Last Admin: 04/23/21 22:17 Dose: 650 mg Documented by: LUANN Albuterol/Ipratropium (Albuterol/Ipratropium 3.0-0.5 Mg/3 Ml Neb Soln) 3 ml NEB Q4HRRT MARTÍNEZ Azithromycin (Azithromycin 250 Mg Tab) 500 mg PO DAILY MARTÍNEZ Last Admin: 04/23/21 21:52 Dose: 500 mg Documented by: LUANN Bisacodyl (Bisacodyl 5 Mg Tab) 5 mg PO DAILY PRN PRN Reason: Constipation Diphtheria/Tetanus/Acell Pertussis (Diphtheria,Pertussis(Acell),Tetanus Vaccine 0.5 Ml Syringe) 0.5 ml IM .ONCE ONE Stop: 04/23/21 23:37 Docusate Sodium (Docusate Sodium 100 Mg Cap) 100 mg PO BID PRN PRN Reason: Constipation Enoxaparin Sodium (Enoxaparin 30 Mg/0.3 Ml Syringe) 30 mg SUBCUT BEDTIME MARTÍNEZ Last Admin: 04/23/21 21:53 Dose: 30 mg Documented by: LUANN Insulin Regular in 0.9 % NACL (Myxredlin In Ns 100 Unit/100 Ml) 100 unit in 100 mls @ 9.072 mls/hr IV TITRATE MARTÍNEZ; Protocol Last Admin: 04/23/21 19:40 Dose: 0.1 units/kg/hr, 9.072 mls/hr Documented by: VELIA Cosigned by: DIERSAM Sodium Bicarbonate 100 meq/ (Dextrose/Water) 1,100 mls @ 100 mls/hr IV ONETIME ONE Stop: 04/24/21 07:46 Last Admin: 04/23/21 22:16 Dose: 100 mls/hr Documented by: LUANN Insulin Glargine (Insulin Glarg,Human.Rec.Analog 100 Unit/Ml) 50 unit SUBCUT BID MARTÍNEZ Last Admin: 04/23/21 21:56 Dose: 50 units Documented by: LUANN Insulin Human Lispro (Insulin Lispro 100 Units/Ml 3 Ml Vial) 20 unit SUBCUT TIDMEALS [facility] Ondansetron HCl (Ondansetron 4 Mg/2 Ml Sdv) 4 mg IVPUSH Q6H PRN PRN Reason: Nausea/Vomiting Sodium Chloride (Sodium Chloride 0.9% 10 Ml Syringe) 10 ml FLUSH ASDIRECTED PRN PRN Reason: Keep Vein Open Last Admin: 04/23/21 18:12 Dose: 10 ml Documented by: FREDA Labs: Laboratory Tests 04/23/21 04/23/21 04/23/21 Range/Units 17:28 17:51 18:05 WBC 20.8 H (5.0-10.0) 10^3/uL RBC 4.13 L (4.2-5.4) 10^6/uL Hgb 12.5 D (12.0-16.0) g/dL Hct 37.5 (37.0-47.0) % MCV 90.8 (80-100) fL MCH 30.3 (27.0-34.0) pg MCHC 33.3 (33.0-35.0) g/dL Plt Count 430 (150-450) 10^3/uL Neut % (Auto) 91.4 H (42.2-75.2) % Lymph % (Auto) 5.0 L (20.5-50.1) % Sully % (Auto) 3.1 (2-8) % Eos % (Auto) 0.3 L (1.0-3.0) % Baso % (Auto) 0.2 (0.0-1.0) % APTT (22.0-34.0) SEC D-Dimer, Quantitative (0-400) ng/mL ABG pH 7.43 (7.35-7.45) ABG pCO2 29 L (35-45) mmHg ABG pO2 76 (70-100) mmHg ABG HCO3 18.7 L (22-26) mmol/L ABG O2 Saturation 96 (95-100) % ABG Base Excess -4 L ((-2)-(+3)) mmol/L Nadir Test Positive O2 Delivery Device Simple mask Sodium (136-145) mmol/L Potassium (3.5-5.1) mmol/L Chloride (98-107) mmol/L Carbon Dioxide (21-32) mmol/L Anion Gap (7-13) mEq/L BUN (7-18) mg/dL Creatinine (0.55-1.02) mg/dL Est Cr Clr Drug Dosing mL/min Estimated GFR (MDRD) BUN/Creatinine Ratio (No establ ref range) Glucose (70-99) mg/dL Lactic Acid (0.4-2.0) mmol/L Calcium (8.5-10.1) mg/dL Magnesium (1.8-2.4) mg/dL Ferritin (8-252) mg/mL Total Bilirubin (0.2-1.0) mg/dL AST (15-37) U/L ALT (14-59) U/L Alkaline Phosphatase (46-116) U/L Lactate Dehydrogenase (81-234) U/L Troponin I High Sens (<=51) pg/mL C-Reactive Protein (0.0-0.9) mg/dL B-Natriuretic Peptide (0-100) pg/ml Total Protein (6.4-8.2) g/dL Albumin (3.4-5.0) g/dL Globulin Albumin/Globulin Ratio HCG, Qual Urine Color (YELLOW) Urine Appearance (CLEAR) Urine pH (5.0-9.0) Ur Specific Canvas (1.005-1.030) Urine Protein (NEGATIVE) Urine Glucose (UA) (NEGATIVE) Urine Ketones (NEGATIVE) Urine Occult Blood (NEGATIVE) Urine Nitrite (NEGATIVE) Urine Bilirubin (NEGATIVE) Urine Urobilinogen (0.2-1.0) mg/dL Ur Leukocyte Esterase (NEGATIVE) Urine RBC (0-5) /HPF Urine WBC (0-5/HPF) /HPF Ur Epithelial Cells (NOT SEEN) /HPF Amorphous Sediment (NOT SEEN) /HPF Urine Bacteria (0-FEW/HPF) /HPF Urine Mucus (NOT SEEN) /LPF Ketones SARS-CoV-2 RNA (ASHLEY) Negative (NEGATIVE) 04/23/21 04/23/21 04/23/21 Range/Units 18:05 18:05 18:05 WBC (5.0-10.0) 10^3/uL RBC (4.2-5.4) 10^6/uL Hgb (12.0-16.0) g/dL Hct (37.0-47.0) % MCV (80-100) fL MCH (27.0-34.0) pg MCHC (33.0-35.0) g/dL Plt Count (150-450) 10^3/uL Neut % (Auto) (42.2-75.2) % Lymph % (Auto) (20.5-50.1) % Sully % (Auto) (2-8) % Eos % (Auto) (1.0-3.0) % Baso % (Auto) (0.0-1.0) % APTT 24.7 (22.0-34.0) SEC D-Dimer, Quantitative 296 (0-400) ng/mL ABG pH (7.35-7.45) ABG pCO2 (35-45) mmHg ABG pO2 (70-100) mmHg ABG HCO3 (22-26) mmol/L ABG O2 Saturation (95-100) % ABG Base Excess ((-2)-(+3)) mmol/L Nadir Test O2 Delivery Device Sodium 125 L D (136-145) mmol/L Potassium 4.0 (3.5-5.1) mmol/L Chloride 90 L (98-107) mmol/L Carbon Dioxide 20 L (21-32) mmol/L Anion Gap 19.0 H (7-13) mEq/L BUN 27 H (7-18) mg/dL Creatinine 2.80 H (0.55-1.02) mg/dL Est Cr Clr Drug Dosing 25.59 mL/min Estimated GFR (MDRD) 18 BUN/Creatinine Ratio 9.6 (No establ ref range) Glucose 733 H* (70-99) mg/dL Lactic Acid (0.4-2.0) mmol/L Calcium 8.9 (8.5-10.1) mg/dL Magnesium 2.3 (1.8-2.4) mg/dL Ferritin (8-252) mg/mL Total Bilirubin 0.4 (0.2-1.0) mg/dL AST 17 (15-37) U/L ALT 28 (14-59) U/L Alkaline Phosphatase 129 H (46-116) U/L Lactate Dehydrogenase 248 H (81-234) U/L Troponin I High Sens 9 (<=51) pg/mL C-Reactive Protein 14.2 H (0.0-0.9) mg/dL B-Natriuretic Peptide 280 H (0-100) pg/ml Total Protein 8.8 H (6.4-8.2) g/dL Albumin 2.4 L (3.4-5.0) g/dL Globulin 6.4 Albumin/Globulin Ratio 0.38 HCG, Qual Negative Urine Color (YELLOW) Urine Appearance (CLEAR) Urine pH (5.0-9.0) Ur Specific Canvas (1.005-1.030) Urine Protein (NEGATIVE) Urine Glucose (UA) (NEGATIVE) Urine Ketones (NEGATIVE) Urine Occult Blood (NEGATIVE) Urine Nitrite (NEGATIVE) Urine Bilirubin (NEGATIVE) Urine Urobilinogen (0.2-1.0) mg/dL Ur Leukocyte Esterase (NEGATIVE) Urine RBC (0-5) /HPF Urine WBC (0-5/HPF) /HPF Ur Epithelial Cells (NOT SEEN) /HPF Amorphous Sediment (NOT SEEN) /HPF Urine Bacteria (0-FEW/HPF) /HPF Urine Mucus (NOT SEEN) /LPF Ketones SARS-CoV-2 RNA (ASHLEY) (NEGATIVE) 04/23/21 04/23/21 04/23/21 Range/Units 18:05 18:05 18:05 WBC (5.0-10.0) 10^3/uL RBC (4.2-5.4) 10^6/uL Hgb (12.0-16.0) g/dL Hct (37.0-47.0) % MCV (80-100) fL MCH (27.0-34.0) pg MCHC (33.0-35.0) g/dL Plt Count (150-450) 10^3/uL Neut % (Auto) (42.2-75.2) % Lymph % (Auto) (20.5-50.1) % Sully % (Auto) (2-8) % Eos % (Auto) (1.0-3.0) % Baso % (Auto) (0.0-1.0) % APTT (22.0-34.0) SEC D-Dimer, Quantitative (0-400) ng/mL ABG pH (7.35-7.45) ABG pCO2 (35-45) mmHg ABG pO2 (70-100) mmHg ABG HCO3 (22-26) mmol/L ABG O2 Saturation (95-100) % ABG Base Excess ((-2)-(+3)) mmol/L Nadir Test O2 Delivery Device Sodium (136-145) mmol/L Potassium (3.5-5.1) mmol/L Chloride (98-107) mmol/L Carbon Dioxide (21-32) mmol/L Anion Gap (7-13) mEq/L BUN (7-18) mg/dL Creatinine (0.55-1.02) mg/dL Est Cr Clr Drug Dosing mL/min Estimated GFR (MDRD) BUN/Creatinine Ratio (No establ ref range) Glucose (70-99) mg/dL Lactic Acid 3.7 H* (0.4-2.0) mmol/L Calcium (8.5-10.1) mg/dL Magnesium (1.8-2.4) mg/dL Ferritin 174 (8-252) mg/mL Total Bilirubin (0.2-1.0) mg/dL AST (15-37) U/L ALT (14-59) U/L Alkaline Phosphatase (46-116) U/L Lactate Dehydrogenase (81-234) U/L Troponin I High Sens (<=51) pg/mL C-Reactive Protein (0.0-0.9) mg/dL B-Natriuretic Peptide (0-100) pg/ml Total Protein (6.4-8.2) g/dL Albumin (3.4-5.0) g/dL Globulin Albumin/Globulin Ratio HCG, Qual Urine Color (YELLOW) Urine Appearance (CLEAR) Urine pH (5.0-9.0) Ur Specific Canvas (1.005-1.030) Urine Protein (NEGATIVE) Urine Glucose (UA) (NEGATIVE) Urine Ketones (NEGATIVE) Urine Occult Blood (NEGATIVE) Urine Nitrite (NEGATIVE) Urine Bilirubin (NEGATIVE) Urine Urobilinogen (0.2-1.0) mg/dL Ur Leukocyte Esterase (NEGATIVE) Urine RBC (0-5) /HPF Urine WBC (0-5/HPF) /HPF Ur Epithelial Cells (NOT SEEN) /HPF Amorphous Sediment (NOT SEEN) /HPF Urine Bacteria (0-FEW/HPF) /HPF Urine Mucus (NOT SEEN) /LPF Ketones Negative SARS-CoV-2 RNA (ASHLEY) (NEGATIVE) 04/23/21 Range/Units 18:57 WBC (5.0-10.0) 10^3/uL RBC (4.2-5.4) 10^6/uL Hgb (12.0-16.0) g/dL Hct (37.0-47.0) % MCV (80-100) fL MCH (27.0-34.0) pg MCHC (33.0-35.0) g/dL Plt Count (150-450) 10^3/uL Neut % (Auto) (42.2-75.2) % Lymph % (Auto) (20.5-50.1) % Sully % (Auto) (2-8) % Eos % (Auto) (1.0-3.0) % Baso % (Auto) (0.0-1.0) % APTT (22.0-34.0) SEC D-Dimer, Quantitative (0-400) ng/mL ABG pH (7.35-7.45) ABG pCO2 (35-45) mmHg ABG pO2 (70-100) mmHg ABG HCO3 (22-26) mmol/L ABG O2 Saturation (95-100) % ABG Base Excess ((-2)-(+3)) mmol/L Nadir Test O2 Delivery Device Sodium (136-145) mmol/L Potassium (3.5-5.1) mmol/L Chloride (98-107) mmol/L Carbon Dioxide (21-32) mmol/L Anion Gap (7-13) mEq/L BUN (7-18) mg/dL Creatinine (0.55-1.02) mg/dL Est Cr Clr Drug Dosing mL/min Estimated GFR (MDRD) BUN/Creatinine Ratio (No establ ref range) Glucose (70-99) mg/dL Lactic Acid (0.4-2.0) mmol/L Calcium (8.5-10.1) mg/dL Magnesium (1.8-2.4) mg/dL Ferritin (8-252) mg/mL Total Bilirubin (0.2-1.0) mg/dL AST (15-37) U/L ALT (14-59) U/L Alkaline Phosphatase (46-116) U/L Lactate Dehydrogenase (81-234) U/L Troponin I High Sens (<=51) pg/mL C-Reactive Protein (0.0-0.9) mg/dL B-Natriuretic Peptide (0-100) pg/ml Total Protein (6.4-8.2) g/dL Albumin (3.4-5.0) g/dL Globulin Albumin/Globulin Ratio HCG, Qual Urine Color Yellow (YELLOW) Urine Appearance Slightly cloudy (CLEAR) Urine pH 6.5 (5.0-9.0) Ur Specific Canvas 1.020 (1.005-1.030) Urine Protein >=300 H (NEGATIVE) Urine Glucose (UA) 500 H (NEGATIVE) Urine Ketones Negative (NEGATIVE) Urine Occult Blood Small H (NEGATIVE) Urine Nitrite Negative (NEGATIVE) Urine Bilirubin Negative (NEGATIVE) Urine Urobilinogen 0.2 (0.2-1.0) mg/dL Ur Leukocyte Esterase Negative (NEGATIVE) Urine RBC 20-30 H (0-5) /HPF Urine WBC 0-5 (0-5/HPF) /HPF Ur Epithelial Cells Moderate H (NOT SEEN) /HPF Amorphous Sediment Moderate H (NOT SEEN) /HPF Urine Bacteria Few (0-FEW/HPF) /HPF Urine Mucus Few H (NOT SEEN) /LPF Ketones SARS-CoV-2 RNA (ASHLEY) (NEGATIVE) Meds: Medications Generic Name Dose Route Start Last Admin Trade Name Freq PRN Reason Stop Dose Admin Acetaminophen 650 mg 04/23/21 20:38 04/23/21 22:17 Acetaminophen 325 Mg Tab PO 650 mg Q4H PRN Administration Pain (Mild 1-3)/fever Albuterol/Ipratropium 3 ml 04/23/21 23:00 Albuterol/Ipratropium 3.0-0.5 Mg/3 Ml Neb Soln NEB Q4HRRT MARTÍNEZ Azithromycin 500 mg 04/23/21 21:00 04/23/21 21:52 Azithromycin 250 Mg Tab PO 500 mg DAILY MARTÍNEZ Administration Bisacodyl 5 mg 04/23/21 20:38 Bisacodyl 5 Mg Tab PO DAILY PRN Constipation Diphtheria/Tetanus/Acell Pertussis 0.5 ml 04/23/21 23:36 Diphtheria,Pertussis(Acell),Tetanus Vaccine 0.5 Ml Syringe IM 04/23/21 23:37 .ONCE ONE Docusate Sodium 100 mg 04/23/21 20:38 Docusate Sodium 100 Mg Cap PO BID PRN Constipation Enoxaparin Sodium 30 mg 04/23/21 21:00 04/23/21 21:53 Enoxaparin 30 Mg/0.3 Ml Syringe SUBCUT 30 mg BEDTIME MARTÍNEZ Administration Insulin Regular in 0.9 % NACL 100 unit in 100 mls @ 9.072 mls/hr 04/23/21 19:00 04/23/21 19:40 Myxredlin In Ns 100 Unit/100 Ml IV 0.1 units/kg/hr TITRATE MARTÍNEZ 9.072 mls/hr Administration Protocol 0.1 UNITS/KG/HR Sodium Bicarbonate 100 meq/ 1,100 mls @ 100 mls/hr 04/23/21 20:47 04/23/21 22:16 Dextrose/Water IV 04/24/21 07:46 100 mls/hr ONETIME ONE Administration Insulin Glargine 50 unit 04/23/21 21:45 04/23/21 21:56 Insulin Glarg,Human.Rec.Analog 100 Unit/Ml SUBCUT 50 units BID MARTÍNEZ Administration Insulin Human Lispro 20 unit 04/24/21 08:00 Insulin Lispro 100 Units/Ml 3 Ml Vial SUBCUT TIDMEALS MARTÍNEZ Ondansetron HCl 4 mg 04/23/21 20:38 Ondansetron 4 Mg/2 Ml Sdv IVPUSH Q6H PRN Nausea/Vomiting Sodium Chloride 10 ml 04/23/21 17:52 04/23/21 18:12 Sodium Chloride 0.9% 10 Ml Syringe FLUSH 10 ml ASDIRECTED PRN Administration Keep Vein Open Discontinued Medications Generic Name Dose Route Start Last Admin Trade Name Freq PRN Reason Stop Dose Admin Albuterol/Ipratropium 3 ml 04/23/21 17:50 04/23/21 18:02 Albuterol/Ipratropium 3.0-0.5 Mg/3 Ml Neb Soln NEB 04/23/21 17:51 3 ml ONETIME ONE Administration Azithromycin 250 mg 04/23/21 20:44 04/23/21 21:53 Azithromycin 250 Mg Tab PO 04/23/21 20:45 Not Given DAILY ONE Dextrose/Water 50 ml 04/23/21 18:46 50% Dextrose In Water 50 Ml Syringe IVPUSH Q15M PRN Hypoglycemia Glucagon 1 mg 04/23/21 18:46 Glucagon,Human Recombinant 1 Mg Vial IM Q15M PRN Hypoglycemia Ceftriaxone Sodium 2 gm/ 100 mls @ 200 mls/hr 04/23/21 18:40 04/23/21 19:14 Sodium Chloride IV 04/23/21 19:09 200 mls/hr ONETIME ONE Administration Azithromycin 500 mg/ Sodium 250 mls @ 250 mls/hr 04/23/21 18:40 04/23/21 20:22 Chloride IV 04/23/21 19:39 250 mls/hr ONETIME ONE Administration Sodium Chloride 1,000 mls @ 999 mls/hr 04/23/21 18:46 04/23/21 19:04 Normal Saline IV 04/23/21 19:46 999 mls/hr .BOLUS ONE Administration Ceftriaxone Sodium 2 gm/ 100 mls @ 200 mls/hr 04/23/21 20:46 04/23/21 21:53 Sodium Chloride IV 04/23/21 21:15 Not Given ONETIME ONE Insulin Human Regular 10 unit 04/23/21 18:46 04/23/21 19:05 Insulin Regular, Human 100 Units/Ml 3 Ml Vial IV 04/23/21 18:47 10 units ONETIME ONE Administration Promethazine HCl/Codeine 10 ml 04/23/21 18:43 04/23/21 19:02 Codeine/Promethazine 10-6.25 Mg/5 Ml Syrup 5 Ml Ud Cup PO 04/23/21 18:44 10 ml ONETIME ONE Administration - Radiology Interpretation Free Text/Narrative:: [facility] Final Radiology Report Call: [phone] assistance Online chat: [email or web address] Name: BEN CINTRON Age: 45Years F Date: 04/23/2021 SSN: -- : [id number] Study: CT CHEST WO CONT Requesting Physician: JOLANTA LERMA Images: [phone] Addl Studies: Provided Clinical History: suspected COVID, acute resp. failure Contrast: Without Contrast Medium: Contrast Amount: Contrast Method: Page 1 of 2 PROCEDURE INFORMATION: Exam: CT Chest Without Contrast; Diagnostic Exam date and time: 04/23/2021 6:19 PM Age: 45 years old Clinical indication: Other: Suspected covid, acute resp. Failure TECHNIQUE: Imaging protocol: Diagnostic computed tomography of the chest without contrast. Radiation optimization: All CT scans at this facility use at least one of these dose optimization techniques: automated exposure control; mA and/or kV adjustment per patient size (includes targeted exams where dose is matched to clinical indication); or iterative reconstructi on. COMPARISON: CT Chest w Cont 02/09/2019 10:57 AM FINDINGS: Lungs: Patchy bilateral peribronchial micronodularity.There are no suspicious p ulmonary nodules or areas of lung consolidation. Pleural spaces: There is no significant effusion. No pneumothorax. No mass, plaque or calcification. Heart: Heart is normal in size. No pericardial effusion. Mediastinal space: There are no masses at the thoracic inlet. Aorta: No aortic aneurysm. Lymph nodes: No enlarged supraclavicular, axillary, mediastinal or hilar lymph nodes are seen. Gallbladder and bile ducts: The gallbladder is surgically absent. Bones/joints: Age appropriate spondylosis. There are no suspicious lytic or osteosclerotic lesions. There are no vertebral compression fractures. Soft tissues: Unremarkable. IMPRESSION: Imaging features are atypical or uncommonly reported for COVID-19 pneumonia. Alternative diagnoses such as bronchitis/bronchiolitis should be considered. Thank you for allowing us to participate in the care of your patient. Dictated and Authenticated by: Nadir Kulkarni MD 04/23/2021 7:13 PM Central Time ([place] & [place]) - Re-Assessments/Exams Free Text/Narrative Re-Assessment/Exam: 04/23/21 Care of patient assumed by conventional mortgage underwriter from Dr. Lerma at 1900. Findings of imaging reviewed with patient. Insulin gtt and IV abx currently infusing. Case discussed with Max Tuttle and [facility]. Case discussed with Dr. Samuels who kindly accepted patient for admission to this facility. Plan of care reviewed with patient who verbalized understanding and agreement with the plan of care. Departure - Departure Time of Disposition: 20:30 Sepsis Event Note (ED) - Focused Exam Vital Signs: Vital Signs Temp Pulse Resp BP Pulse Ox 04/23/21 18:02 99.2 F 100 21 H 175/84 H 98 I have read and agree with the documentation that has been completed regarding this visit. By signing this record, I attest that the documentation was completed in my physical presence and is an accurate record of the encounter.
[2021-04-23] MEDS ORDERED: cefTRIAXone 2 GM in Sodium Chloride 0.9% 100 ML IV ONE ×2 (18:40→20:46)
[2021-04-23] MEDS ORDERED: Azithromycin 500 MG in Sodium Chloride 0.9% 250 ML IV ONE (18:40)
[2021-04-23 18:43] LABS: CHLORIDE,CL 90 mmol/L (98-107); SODIUM,NA 125 mmol/L (136-145)
[2021-04-23] MEDS ORDERED: Codeine/Promethazine 10-6.25 MG/5 ML Syrup 5 ML UD Cup PO ONE (18:43)
[2021-04-23] MEDS ORDERED: Insulin Regular, Human 100 Units/ML 3 ML Vial IV ONE (18:46)
[2021-04-23] MEDS ORDERED: Glucagon,Human Recombinant 1 MG Vial IM PRN (18:46)
[2021-04-23] MEDS ORDERED: 50% Dextrose in Water 50 ML Syringe IVPUSH PRN (18:46)
[2021-04-23] MEDS ORDERED: Sodium Chloride 0.9% 1,000 ML IV ONE (18:46)
--- NOTE | 2021-04-23 19:14 | CT ---
PROCEDURE INFORMATION: Exam: CT Chest Without Contrast; Diagnostic Exam date and time: 04/23/2021 6:19 PM Age: 45 years old Clinical indication: Other: Suspected covid, acute resp. Failure TECHNIQUE: Imaging protocol: Diagnostic computed tomography of the chest without contrast. Radiation optimization: All CT scans at this facility use at least one of these dose optimization techniques: automated exposure control; mA and/or kV adjustment per patient size (includes targeted exams where dose is matched to clinical indication); or iterative reconstruction. COMPARISON: CT Chest w Cont 02/09/2019 10:57 AM FINDINGS: Lungs: Patchy bilateral peribronchial micronodularity.There are no suspicious pulmonary nodules or areas of lung consolidation. Pleural spaces: There is no significant effusion. No pneumothorax. No mass, plaque or calcification. Heart: Heart is normal in size. No pericardial effusion. Mediastinal space: There are no masses at the thoracic inlet. Aorta: No aortic aneurysm. Lymph nodes: No enlarged supraclavicular, axillary, mediastinal or hilar lymph nodes are seen. Gallbladder and bile ducts: The gallbladder is surgically absent. Bones/joints: Age appropriate spondylosis. There are no suspicious lytic or osteosclerotic lesions. There are no vertebral compression fractures. Soft tissues: Unremarkable. IMPRESSION: Imaging features are atypical or uncommonly reported for COVID-19 pneumonia. Alternative diagnoses such as bronchitis/bronchiolitis should be considered.
[2021-04-23] MEDS ORDERED: Bisacodyl 5 MG Tab PO PRN (20:38)
[2021-04-23] MEDS ORDERED: Ondansetron 4 MG/2 ML SDV IVPUSH PRN (20:38)
[2021-04-23] MEDS ORDERED: Docusate Sodium 100 MG Cap PO PRN (20:38)
[2021-04-23] MEDS ORDERED: Azithromycin 250 MG Tab PO ONE (20:44)
[2021-04-23] MEDS ORDERED: Sodium Bicarbonate 100 MEQ in Dextrose 5% in Water 1,000 ML IV ONE ×2 (20:47)
--- NOTE | 2021-04-23 21:05 | PCM.HP ---
H&P History of Present Illness - General Date of Service: 04/23/21 Admit Problem/Dx: Admission Diagnosis/Problem Admission Diagnosis/Problem Pneumonia Source of Information: Patient, Provider (ER) History Limitations: Reports: No Limitations - History of Present Illness Initial Comments - Free Text/Narative: Patient presents to ED with complaint of shortness of breath worsening over the past 3 days. Patient reports onset of cough, body aches, headache, fever and chills with loss of appetite and severe fatigue 10 days ago. Patient states that she had COVID infection approximately 1 year ago without complications. She has not had COVID vaccine. She has history of diabetes, obesity, hypokalemia, chronic kidney disease and noncompliance with medications. She claims that she did not use her insulin for the past 3 days because of vomiting. No D/ abd pain Generalized Pain Score (Numeric/FACES): 10 - Related Data Allergies/Adverse Reactions: Allergies Allergy/AdvReac Type Severity Reaction Status Date / Time Sulfa (Sulfonamide Allergy Hives Verified 03/05/21 16:11 Antibiotics) sulfacetamide Allergy Rash Verified 03/05/21 16:11 Home Medications: Home Meds Aspirin [Ecotrin EC] 81 tab PO BEDTIME 10/29/14 [History] Insulin Detemir [Levemir] 50 units SQ BID 10/29/14 [History] Gabapentin [Neurontin] 300 mg PO TID 07/23/17 [History] glipiZIDE [Glucotrol] 20 mg PO BEDTIME 12/03/18 [History] Bumetanide 1 mg PO DAILY 02/09/19 [History] Ferrous Gluconate 324 mg PO DAILY 02/09/19 [History] Insulin Aspart [NovoLOG] 20 units SQ TIDMEALS 02/09/19 [History] Metoprolol Succinate [Toprol XL 50mg] 50 mg PO DAILY 02/09/19 [History] Multivitamin [Multivitamins] 1 cap PO DAILY 02/09/19 [History] Potassium Chloride 20 meq PO BID 02/09/19 [History] atorvaSTATin Calcium [Atorvastatin Calcium] 80 mg PO BEDTIME 02/09/19 [History] Past Medical History - Past Health History Medical/Surgical History: Denies Medical/Surgical History HEENT History: Reports: Cataract, Impaired Vision Other HEENT History: WEARS GLASSES Cardiovascular History: Reports: High Cholesterol, Hypertension Respiratory History: Reports: Bronchitis, Recurrent Gastrointestinal History: Reports: GERD Genitourinary History: Reports: Chronic Renal Insuffiency, Diabetic Nephropathy [employer] History: Reports: Musculoskeletal History: Reports: None Neurological History: Reports: None Psychiatric History: Reports: None Endocrine/Metabolic History: Reports: Diabetes, Type II Hematologic History: Reports: Anemia Immunologic History: Reports: None Oncologic (Cancer) History: Reports: None Dermatologic History: Reports: None - Infectious Disease History Infectious Disease History: Reports: Chicken Pox, Novel Coronavirus - Past Surgical History Head Surgeries/Procedures: Reports: None HEENT Surgical History: Reports: Detached Retina, Eye Surgery Respiratory Surgical History: Reports: None GI Surgical History: Reports: Cholecystectomy Female Surgical History: Reports: None Endocrine Surgical History: Reports: None Neurological Surgical History: Reports: None Musculoskeletal Surgical History: Reports: None Oncologic Surgical History: Reports: None Social & Family History - Family History Family Medical History: No Pertinent Family History HEENT: Reports: None Cardiac: Reports: None Respiratory: Reports: None OBGYN: Reports: Neurological: Reports: None Endocrine/Metabolic: Reports: Diabetes, type II - Tobacco Use Tobacco Use Status *Q: Unknown Ever Used Tobacco - Caffeine Use Caffeine Use: Reports: None - Recreational Drug Use Recreational Drug Use: No - Living Situation & Occupation Living situation: Reports: Single Occupation: Unemployed H&P Review of Systems - Review of Systems: Review Of Systems: Comprehensive ROS is negative, except as noted in HPI. General: Reports: Fever, Chills HEENT: Reports: No Symptoms Pulmonary: Reports: Shortness of Breath, Wheezing Cardiovascular: Denies: Chest Pain Gastrointestinal: Reports: Vomiting. Denies: Abdominal Pain Genitourinary: Denies: Dysuria Musculoskeletal: Denies: Neck Pain Skin: Reports: No Symptoms Psychiatric: Denies: Confusion Neurological: Denies: Confusion Hematologic/Lymphatic: Reports: No Symptoms Exam - Exam Exam: See Below - Vital Signs Vital Signs: Last Vital Signs Temp 99.2 F 04/23/21 18:02 Pulse 103 H 04/23/21 19:45 Resp 30 H 04/23/21 19:45 BP 167/86 H 04/23/21 19:45 Pulse Ox 96 04/23/21 19:45 Weight: 200 lb - Exam Quality Assessment: Supplemental Oxygen General: Alert, Oriented, Moderate Distress HEENT: EOMI Neck: Supple Lungs: Decreased Breath Sounds, Wheezing Cardiovascular: Regular Rate, Regular Rhythm GI/Abdominal Exam: Soft Extremities: Normal Inspection Skin: Warm, Dry Neurological: Cranial Nerves Intact Neuro Extensive - Mental Status: Alert, Oriented x3 Neuro Extensive - Motor, Sensory, Reflexes: CN II-XII Intact, Normal Gait Psychiatric: Alert, Normal Affect - Patient Data Lab Results Last 24 hrs: Laboratory Results - last 24 hr 04/23/21 04/23/21 04/23/21 Range/Units 17:28 17:51 18:05 WBC 20.8 H (5.0-10.0) 10^3/uL RBC 4.13 L (4.2-5.4) 10^6/uL Hgb 12.5 D (12.0-16.0) g/dL Hct 37.5 (37.0-47.0) % MCV 90.8 (80-100) fL MCH 30.3 (27.0-34.0) pg MCHC 33.3 (33.0-35.0) g/dL Plt Count 430 (150-450) 10^3/uL Neut % (Auto) 91.4 H (42.2-75.2) % Lymph % (Auto) 5.0 L (20.5-50.1) % [place] % (Auto) 3.1 (2-8) % Eos % (Auto) 0.3 L (1.0-3.0) % Baso % (Auto) 0.2 (0.0-1.0) % APTT (22.0-34.0) SEC D-Dimer, Quantitative (0-400) ng/mL ABG pH 7.43 (7.35-7.45) ABG pCO2 29 L (35-45) mmHg ABG pO2 76 (70-100) mmHg ABG HCO3 18.7 L (22-26) mmol/L ABG O2 Saturation 96 (95-100) % ABG Base Excess -4 L ((-2)-(+3)) mmol/L Nadir Test Positive O2 Delivery Device Simple mask Sodium (136-145) mmol/L Potassium (3.5-5.1) mmol/L Chloride (98-107) mmol/L Carbon Dioxide (21-32) mmol/L Anion Gap (7-13) mEq/L BUN (7-18) mg/dL Creatinine (0.55-1.02) mg/dL Est Cr Clr Drug Dosing mL/min Estimated GFR (MDRD) BUN/Creatinine Ratio (No establ ref range) Glucose (70-99) mg/dL POC Glucose (70-99) mg/dL Lactic Acid (0.4-2.0) mmol/L Calcium (8.5-10.1) mg/dL Magnesium (1.8-2.4) mg/dL Ferritin (8-252) mg/mL Total Bilirubin (0.2-1.0) mg/dL AST (15-37) U/L ALT (14-59) U/L Alkaline Phosphatase (46-116) U/L Lactate Dehydrogenase (81-234) U/L Troponin I High Sens (<=51) pg/mL C-Reactive Protein (0.0-0.9) mg/dL B-Natriuretic Peptide (0-100) pg/ml Total Protein (6.4-8.2) g/dL Albumin (3.4-5.0) g/dL Globulin Albumin/Globulin Ratio HCG, Qual Urine Color (YELLOW) Urine Appearance (CLEAR) Urine pH (5.0-9.0) Ur Specific [place] (1.005-1.030) Urine Protein (NEGATIVE) Urine Glucose (UA) (NEGATIVE) Urine Ketones (NEGATIVE) Urine Occult Blood (NEGATIVE) Urine Nitrite (NEGATIVE) Urine Bilirubin (NEGATIVE) Urine Urobilinogen (0.2-1.0) mg/dL Ur Leukocyte Esterase (NEGATIVE) Urine RBC (0-5) /HPF Urine WBC (0-5/HPF) /HPF Ur Epithelial Cells (NOT SEEN) /HPF Amorphous Sediment (NOT SEEN) /HPF Urine Bacteria (0-FEW/HPF) /HPF Urine Mucus (NOT SEEN) /LPF Ketones SARS-CoV-2 RNA (ASHLEY) Negative (NEGATIVE) 04/23/21 04/23/21 04/23/21 Range/Units 18:05 18:05 18:05 WBC (5.0-10.0) 10^3/uL RBC (4.2-5.4) 10^6/uL Hgb (12.0-16.0) g/dL Hct (37.0-47.0) % MCV (80-100) fL MCH (27.0-34.0) pg MCHC (33.0-35.0) g/dL Plt Count (150-450) 10^3/uL Neut % (Auto) (42.2-75.2) % Lymph % (Auto) (20.5-50.1) % [place] % (Auto) (2-8) % Eos % (Auto) (1.0-3.0) % Baso % (Auto) (0.0-1.0) % APTT 24.7 (22.0-34.0) SEC D-Dimer, Quantitative 296 (0-400) ng/mL ABG pH (7.35-7.45) ABG pCO2 (35-45) mmHg ABG pO2 (70-100) mmHg ABG HCO3 (22-26) mmol/L ABG O2 Saturation (95-100) % ABG Base Excess ((-2)-(+3)) mmol/L Nadir Test O2 Delivery Device Sodium 125 L D (136-145) mmol/L Potassium 4.0 (3.5-5.1) mmol/L Chloride 90 L (98-107) mmol/L Carbon Dioxide 20 L (21-32) mmol/L Anion Gap 19.0 H (7-13) mEq/L BUN 27 H (7-18) mg/dL Creatinine 2.80 H (0.55-1.02) mg/dL Est Cr Clr Drug Dosing 25.59 mL/min Estimated GFR (MDRD) 18 BUN/Creatinine Ratio 9.6 (No establ ref range) Glucose 733 H* (70-99) mg/dL POC Glucose (70-99) mg/dL Lactic Acid (0.4-2.0) mmol/L Calcium 8.9 (8.5-10.1) mg/dL Magnesium 2.3 (1.8-2.4) mg/dL Ferritin (8-252) mg/mL Total Bilirubin 0.4 (0.2-1.0) mg/dL AST 17 (15-37) U/L ALT 28 (14-59) U/L Alkaline Phosphatase 129 H (46-116) U/L Lactate Dehydrogenase 248 H (81-234) U/L Troponin I High Sens 9 (<=51) pg/mL C-Reactive Protein 14.2 H (0.0-0.9) mg/dL B-Natriuretic Peptide 280 H (0-100) pg/ml Total Protein 8.8 H (6.4-8.2) g/dL Albumin 2.4 L (3.4-5.0) g/dL Globulin 6.4 Albumin/Globulin Ratio 0.38 HCG, Qual Negative Urine Color (YELLOW) Urine Appearance (CLEAR) Urine pH (5.0-9.0) Ur Specific [place] (1.005-1.030) Urine Protein (NEGATIVE) Urine Glucose (UA) (NEGATIVE) Urine Ketones (NEGATIVE) Urine Occult Blood (NEGATIVE) Urine Nitrite (NEGATIVE) Urine Bilirubin (NEGATIVE) Urine Urobilinogen (0.2-1.0) mg/dL Ur Leukocyte Esterase (NEGATIVE) Urine RBC (0-5) /HPF Urine WBC (0-5/HPF) /HPF Ur Epithelial Cells (NOT SEEN) /HPF Amorphous Sediment (NOT SEEN) /HPF Urine Bacteria (0-FEW/HPF) /HPF Urine Mucus (NOT SEEN) /LPF Ketones SARS-CoV-2 RNA (ASHLEY) (NEGATIVE) 04/23/21 04/23/21 04/23/21 Range/Units 18:05 18:05 18:05 WBC (5.0-10.0) 10^3/uL RBC (4.2-5.4) 10^6/uL Hgb (12.0-16.0) g/dL Hct (37.0-47.0) % MCV (80-100) fL MCH (27.0-34.0) pg MCHC (33.0-35.0) g/dL Plt Count (150-450) 10^3/uL Neut % (Auto) (42.2-75.2) % Lymph % (Auto) (20.5-50.1) % [place] % (Auto) (2-8) % Eos % (Auto) (1.0-3.0) % Baso % (Auto) (0.0-1.0) % APTT (22.0-34.0) SEC D-Dimer, Quantitative (0-400) ng/mL ABG pH (7.35-7.45) ABG pCO2 (35-45) mmHg ABG pO2 (70-100) mmHg ABG HCO3 (22-26) mmol/L ABG O2 Saturation (95-100) % ABG Base Excess ((-2)-(+3)) mmol/L Nadir Test O2 Delivery Device Sodium (136-145) mmol/L Potassium (3.5-5.1) mmol/L Chloride (98-107) mmol/L Carbon Dioxide (21-32) mmol/L Anion Gap (7-13) mEq/L BUN (7-18) mg/dL Creatinine (0.55-1.02) mg/dL Est Cr Clr Drug Dosing mL/min Estimated GFR (MDRD) BUN/Creatinine Ratio (No establ ref range) Glucose (70-99) mg/dL POC Glucose (70-99) mg/dL Lactic Acid 3.7 H* (0.4-2.0) mmol/L Calcium (8.5-10.1) mg/dL Magnesium (1.8-2.4) mg/dL Ferritin 174 (8-252) mg/mL Total Bilirubin (0.2-1.0) mg/dL AST (15-37) U/L ALT (14-59) U/L Alkaline Phosphatase (46-116) U/L Lactate Dehydrogenase (81-234) U/L Troponin I High Sens (<=51) pg/mL C-Reactive Protein (0.0-0.9) mg/dL B-Natriuretic Peptide (0-100) pg/ml Total Protein (6.4-8.2) g/dL Albumin (3.4-5.0) g/dL Globulin Albumin/Globulin Ratio HCG, Qual Urine Color (YELLOW) Urine Appearance (CLEAR) Urine pH (5.0-9.0) Ur Specific [place] (1.005-1.030) Urine Protein (NEGATIVE) Urine Glucose (UA) (NEGATIVE) Urine Ketones (NEGATIVE) Urine Occult Blood (NEGATIVE) Urine Nitrite (NEGATIVE) Urine Bilirubin (NEGATIVE) Urine Urobilinogen (0.2-1.0) mg/dL Ur Leukocyte Esterase (NEGATIVE) Urine RBC (0-5) /HPF Urine WBC (0-5/HPF) /HPF Ur Epithelial Cells (NOT SEEN) /HPF Amorphous Sediment (NOT SEEN) /HPF Urine Bacteria (0-FEW/HPF) /HPF Urine Mucus (NOT SEEN) /LPF Ketones Negative SARS-CoV-2 RNA (ASHLEY) (NEGATIVE) 04/23/21 04/23/21 Range/Units 18:57 20:11 WBC (5.0-10.0) 10^3/uL RBC (4.2-5.4) 10^6/uL Hgb (12.0-16.0) g/dL Hct (37.0-47.0) % MCV (80-100) fL MCH (27.0-34.0) pg MCHC (33.0-35.0) g/dL Plt Count (150-450) 10^3/uL Neut % (Auto) (42.2-75.2) % Lymph % (Auto) (20.5-50.1) % [place] % (Auto) (2-8) % Eos % (Auto) (1.0-3.0) % Baso % (Auto) (0.0-1.0) % APTT (22.0-34.0) SEC D-Dimer, Quantitative (0-400) ng/mL ABG pH (7.35-7.45) ABG pCO2 (35-45) mmHg ABG pO2 (70-100) mmHg ABG HCO3 (22-26) mmol/L ABG O2 Saturation (95-100) % ABG Base Excess ((-2)-(+3)) mmol/L Nadir Test O2 Delivery Device Sodium (136-145) mmol/L Potassium (3.5-5.1) mmol/L Chloride (98-107) mmol/L Carbon Dioxide (21-32) mmol/L Anion Gap (7-13) mEq/L BUN (7-18) mg/dL Creatinine (0.55-1.02) mg/dL Est Cr Clr Drug Dosing mL/min Estimated GFR (MDRD) BUN/Creatinine Ratio (No establ ref range) Glucose (70-99) mg/dL POC Glucose 516 H* (70-99) mg/dL Lactic Acid (0.4-2.0) mmol/L Calcium (8.5-10.1) mg/dL Magnesium (1.8-2.4) mg/dL Ferritin (8-252) mg/mL Total Bilirubin (0.2-1.0) mg/dL AST (15-37) U/L ALT (14-59) U/L Alkaline Phosphatase (46-116) U/L Lactate Dehydrogenase (81-234) U/L Troponin I High Sens (<=51) pg/mL C-Reactive Protein (0.0-0.9) mg/dL B-Natriuretic Peptide (0-100) pg/ml Total Protein (6.4-8.2) g/dL Albumin (3.4-5.0) g/dL Globulin Albumin/Globulin Ratio HCG, Qual Urine Color Yellow (YELLOW) Urine Appearance Slightly cloudy (CLEAR) Urine pH 6.5 (5.0-9.0) Ur Specific [place] 1.020 (1.005-1.030) Urine Protein >=300 H (NEGATIVE) Urine Glucose (UA) 500 H (NEGATIVE) Urine Ketones Negative (NEGATIVE) Urine Occult Blood Small H (NEGATIVE) Urine Nitrite Negative (NEGATIVE) Urine Bilirubin Negative (NEGATIVE) Urine Urobilinogen 0.2 (0.2-1.0) mg/dL Ur Leukocyte Esterase Negative (NEGATIVE) Urine RBC 20-30 H (0-5) /HPF Urine WBC 0-5 (0-5/HPF) /HPF Ur Epithelial Cells Moderate H (NOT SEEN) /HPF Amorphous Sediment Moderate H (NOT SEEN) /HPF Urine Bacteria Few (0-FEW/HPF) /HPF Urine Mucus Few H (NOT SEEN) /LPF Ketones SARS-CoV-2 RNA (ASHLEY) (NEGATIVE) Result Diagrams: 04/23/21 18:05 04/23/21 18:05 Problem List Initiated/Reviewed/Updated: Yes Orders Last 24hrs: Active Orders 24 hr Category Date Time Status Admission Diagnosis [ADT] Stat ADT 04/23/21 19:45 Ordered Admission Status [Patient Status] [ADT] Routine ADT 04/23/21 19:45 Active Patient Status [ADT] Routine ADT 04/23/21 20:38 Ordered Blood Glucose Check, Bedside [RC] WITHMEALSANDBED Care 04/23/21 20:38 Ordered Cardiac Monitoring [RC] . DIRECTED Care 04/23/21 19:45 Active Cardiac Monitoring [RC] CONTINUOUS Care 04/23/21 20:39 Ordered Intake and Output [RC] QSHIFT Care 04/23/21 20:39 Ordered Oxygen Therapy [RC] PRN Care 04/23/21 20:38 Ordered Peripheral IV Care [RC] . DIRECTED Care 04/23/21 17:52 Active RT Aerosol Therapy [RC] ASDIRECTED Care 04/23/21 17:50 Active RT Aerosol Therapy [RC] ASDIRECTED Care 04/23/21 20:49 Ordered Up ad Tata [RC] ASDIRECTED Care 04/23/21 20:38 Ordered VTE/DVT Education [RC] PER UNIT ROUTINE Care 04/23/21 20:38 Ordered Vital Signs [RC] Q4H Care 04/23/21 20:38 Ordered Consult to Respiratory Therapy [Respiratory Care Assess Cons 04/23/21 20:49 Ordered and Treatment] [CONS] Routine Respiratory Care Assess and Treatment [CONS] Routine Cons 04/23/21 20:38 Active Consistent Carbohydrate Diet [DIET] Diet 04/24/21 Breakfast Ordered BASIC METABOLIC PANEL,BMP [CHEM] AM Lab 04/24/21 05:11 Ordered BASIC METABOLIC PANEL,BMP [CHEM] AM Lab 04/25/21 05:11 Ordered BASIC METABOLIC PANEL,BMP [CHEM] AM Lab 04/26/21 05:11 Ordered BASIC METABOLIC PANEL,BMP [CHEM] AM Lab 04/27/21 05:11 Ordered BASIC METABOLIC PANEL,BMP [CHEM] AM Lab 04/28/21 05:11 Ordered BASIC METABOLIC PANEL,BMP [CHEM] AM Lab 04/29/21 05:11 Ordered BASIC METABOLIC PANEL,BMP [CHEM] AM Lab 04/30/21 05:11 Ordered C-REACTIVE PROTEIN [REF] Routine Lab 04/24/21 05:00 Ordered CBC WITH AUTO DIFF [HEME] AM Lab 04/24/21 05:11 Ordered CBC WITH AUTO DIFF [HEME] AM Lab 04/25/21 05:11 Ordered CBC WITH AUTO DIFF [HEME] AM Lab 04/26/21 05:11 Ordered CBC WITH AUTO DIFF [HEME] AM Lab 04/27/21 05:11 Ordered CBC WITH AUTO DIFF [HEME] AM Lab 04/28/21 05:11 Ordered CBC WITH AUTO DIFF [HEME] AM Lab 04/29/21 05:11 Ordered CBC WITH AUTO DIFF [HEME] AM Lab 04/30/21 05:11 Ordered COVID-19/FLU A+B/RSV [MOLEC] Stat Lab 04/23/21 20:57 Ordered CULTURE BLOOD [BC] Stat Lab 04/23/21 17:57 Received CULTURE BLOOD [BC] Stat Lab 04/23/21 18:05 Received LACTIC ACID [CHEM] Routine Lab 04/23/21 20:45 Ordered Acetaminophen [TylenoL] Med 04/23/21 20:38 Ordered 650 mg PO Q4H PRN Albuterol/Ipratropium [DuoNeb 3.0-0.5 MG/3 ML] Med 04/23/21 23:00 Ordered 3 ml NEB Q4HRRT Azithromycin [Zithromax] Med 04/23/21 21:00 Ordered 500 mg PO DAILY Docusate Sodium [Colace] Med 04/23/21 20:38 Ordered 100 mg PO BID PRN Enoxaparin [Lovenox] Med 04/23/21 20:45 Ordered 40 mg SUBCUT DAILY Insulin Regular in 0.9 % NACL [Myxredlin in NS 100 UNIT Med 04/23/21 19:00 Active /100 ML] 100 unit in 100 ml IV TITRATE Ondansetron [Zofran] Med 04/23/21 20:38 Ordered 4 mg IVPUSH Q6H PRN Sodium Bicarbonate 100 MEQ in D5W 1000 ML @100 mL/Hr ( Med 04/23/21 20:47 Ordered 1000ml) Sodium Bicarbonate [Sodium Bicarbonate 8.4%] 100 meq Dextrose 5% in Water 1,000 ml IV ONETIME Sodium Chloride 0.9% [Saline Flush] Med 04/23/21 17:52 Active 10 ml FLUSH ASDIRECTED PRN bisacodyL [Dulcolax] Med 04/23/21 20:38 Ordered 5 mg PO DAILY PRN cefTRIAXone [Rocephin] 2 gm Med 04/23/21 20:46 Ordered Sodium Chloride 0.9% [Normal Saline] 100 ml IV ONETIME Blood Culture x2 Reflex Set [OM.PC] Stat Oth 04/23/21 17:51 Ordered Peripheral IV Insertion Adult [OM.PC] Stat Oth 04/23/21 17:52 Ordered Resuscitation Status Routine Resus Stat 04/23/21 20:38 Ordered Medication Orders Acetaminophen (Acetaminophen 325 Mg Tab) 650 mg PO Q4H PRN PRN Reason: Pain (Mild 1-3)/fever Albuterol/Ipratropium (Albuterol/Ipratropium 3.0-0.5 Mg/3 Ml Neb Soln) 3 ml NEB Q4HRRT MART[facility]NEZ Azithromycin (Azithromycin 250 Mg Tab) 500 mg PO DAILY [facility]ART[facility]NEZ Bisacodyl (Bisacodyl 5 Mg Tab) 5 mg PO DAILY PRN PRN Reason: Constipation Docusate Sodium (Docusate Sodium 100 Mg Cap) 100 mg PO BID PRN PRN Reason: Constipation Enoxaparin Sodium (Enoxaparin 30 Mg/0.3 Ml Syringe) 30 mg SUBCUT BEDTIME MARTÍNEZ Insulin Regular in 0.9 % NACL (Myxredlin In Ns 100 Unit/100 Ml) 100 unit in 100 mls @ 9.072 mls/hr IV TITRATE MARTÍNEZ; Protocol Last Admin: 04/23/21 19:40 Dose: 0.1 units/kg/hr, 9.072 mls/hr Documented by: VELIA Saucedoigned by: RAMAN Ceftriaxone Sodium 2 gm/ (Sodium Chloride) 100 mls @ 200 mls/hr IV ONETIME ONE Stop: 04/23/21 21:15 Sodium Bicarbonate 100 meq/ (Dextrose/Water) 1,100 mls @ 100 mls/hr IV ONETIME ONE Stop: 04/24/21 07:46 Ondansetron HCl (Ondansetron 4 Mg/2 Ml Sdv) 4 mg IVPUSH Q6H PRN PRN Reason: Nausea/Vomiting Sodium Chloride (Sodium Chloride 0.9% 10 Ml Syringe) 10 ml FLUSH ASDIRECTED PRN PRN Reason: Keep Vein Open Last Admin: 04/23/21 18:12 Dose: 10 ml Documented by: FREDA Assessment/Plan Comment:: 1- Pneumonia? respiratory failure with hypoxia/ Pneumonia. Leukocytosis/ sepsis HYPERGLYCEMIA Uncontrolled dm ckd Hyponatremia Zithromaz IV > to po duer to local irritation Ceftaixone Nebs IV Bicarbonate resume home insulin repeat viral screen including COVID, RSV, flu repeat labs in am DVT prophylaxis with insulin
[2021-04-23] MEDS: Azithromycin 250 MG Tab PO SCH (21:52)
[2021-04-23] MEDS: Enoxaparin 30 MG/0.3 ML Syringe SUBCUT SCH (21:53)
[2021-04-23] MEDS: Insulin Glarg,Human.Rec.Analog 100 Unit/ML SUBCUT SCH (21:56)
[2021-04-23] MEDS: Acetaminophen 325 MG Tab PO PRN (22:17)
[2021-04-23 22:23] LABS: CORONAVIRUS COVID-19 NAA NEGATIVE (NEGATIVE); RESPIRATORY SYNCYTIAL VIR NAA POSITIVE (NEGATIVE)
[2021-04-24] MEDS: Gabapentin 300 MG Cap PO SCH ×4 (00:47→20:22)
[2021-04-24] MEDS: Albuterol/Ipratropium 3.0-0.5 MG/3 ML Neb Soln NEB SCH ×7 (00:47→23:57)
[2021-04-24 07:02] LABS: ANION GAP 12.3 mEq/L (7-13)
[2021-04-24] MEDS: Insulin Lispro 100 Units/ML 3 ML Vial SUBCUT SCH ×6 (08:00→21:45)
[2021-04-24] MEDS ORDERED: Diphtheria,Pertussis(Acell),Tetanus Vaccine 0.5 ML Syringe IM ONE ×2 (09:00→11:00)
[2021-04-24] MEDS ORDERED: Gabapentin 300 MG Cap PO SCH ×2 (09:00→14:00)
--- NOTE | 2021-04-24 10:38 | PCM.PN ---
- General Info Date of Service: 04/24/21 Subjective Update: Feeling better, less SOB. Tolerating diet. Functional Status: Reports: Tolerating Diet - Review of Systems General: Denies: Fever Pulmonary: Reports: Shortness of Breath (better) Cardiovascular: Denies: Chest Pain Gastrointestinal: Denies: Abdominal Pain Genitourinary: Denies: Dysuria Neurological: Denies: Confusion Psychiatric: Denies: Confusion - Patient Data Vitals - Most Recent: Last Vital Signs Temp 98.4 F 04/24/21 07:58 Pulse 98 04/24/21 07:58 Resp 20 04/24/21 07:58 BP 154/72 H 04/24/21 07:58 Pulse Ox 98 04/24/21 07:58 Weight - Most Recent: 185 lb 4.8 oz I&O - Last 24 Hours: Intake & Output 04/23/21 04/24/21 04/24/21 22:59 06:59 14:59 Intake Total 0 1000 Output Total 250 Balance -250 1000 Lab Results Last 24 Hours: Laboratory Results - last 24 hr 04/23/21 04/23/21 04/23/21 Range/Units 17:28 17:51 18:05 WBC 20.8 H (5.0-10.0) 10^3/uL RBC 4.13 L (4.2-5.4) 10^6/uL Hgb 12.5 D (12.0-16.0) g/dL Hct 37.5 (37.0-47.0) % MCV 90.8 (80-100) fL MCH 30.3 (27.0-34.0) pg MCHC 33.3 (33.0-35.0) g/dL Plt Count 430 (150-450) 10^3/uL Neut % (Auto) 91.4 H (42.2-75.2) % Lymph % (Auto) 5.0 L (20.5-50.1) % Routt % (Auto) 3.1 (2-8) % Eos % (Auto) 0.3 L (1.0-3.0) % Baso % (Auto) 0.2 (0.0-1.0) % APTT (22.0-34.0) SEC D-Dimer, Quantitative (0-400) ng/mL ABG pH 7.43 (7.35-7.45) ABG pCO2 29 L (35-45) mmHg ABG pO2 76 (70-100) mmHg ABG HCO3 18.7 L (22-26) mmol/L ABG O2 Saturation 96 (95-100) % ABG Base Excess -4 L ((-2)-(+3)) mmol/L Nadir Test Positive O2 Delivery Device Simple mask Sodium (136-145) mmol/L Potassium (3.5-5.1) mmol/L Chloride (98-107) mmol/L Carbon Dioxide (21-32) mmol/L Anion Gap (7-13) mEq/L BUN (7-18) mg/dL Creatinine (0.55-1.02) mg/dL Est Cr Clr Drug Dosing mL/min Estimated GFR (MDRD) BUN/Creatinine Ratio (No establ ref range) Glucose (70-99) mg/dL POC Glucose (70-99) mg/dL Lactic Acid (0.4-2.0) mmol/L Calcium (8.5-10.1) mg/dL Magnesium (1.8-2.4) mg/dL Ferritin (8-252) mg/mL Total Bilirubin (0.2-1.0) mg/dL AST (15-37) U/L ALT (14-59) U/L Alkaline Phosphatase (46-116) U/L Lactate Dehydrogenase (81-234) U/L Troponin I High Sens (<=51) pg/mL C-Reactive Protein (0.0-0.9) mg/dL B-Natriuretic Peptide (0-100) pg/ml Total Protein (6.4-8.2) g/dL Albumin (3.4-5.0) g/dL Globulin Albumin/Globulin Ratio HCG, Qual Urine Color (YELLOW) Urine Appearance (CLEAR) Urine pH (5.0-9.0) Ur Specific [place] (1.005-1.030) Urine Protein (NEGATIVE) Urine Glucose (UA) (NEGATIVE) Urine Ketones (NEGATIVE) Urine Occult Blood (NEGATIVE) Urine Nitrite (NEGATIVE) Urine Bilirubin (NEGATIVE) Urine Urobilinogen (0.2-1.0) mg/dL Ur Leukocyte Esterase (NEGATIVE) Urine RBC (0-5) /HPF Urine WBC (0-5/HPF) /HPF Ur Epithelial Cells (NOT SEEN) /HPF Amorphous Sediment (NOT SEEN) /HPF Urine Bacteria (0-FEW/HPF) /HPF Urine Mucus (NOT SEEN) /LPF Ketones Influenza Type A RNA (NEGATIVE) RSV RNA (INAAT) (NEGATIVE) Influenza Type B RNA (NEGATIVE) SARS-CoV-2 RNA (ASHLEY) Negative (NEGATIVE) 04/23/21 04/23/21 04/23/21 Range/Units 18:05 18:05 18:05 WBC (5.0-10.0) 10^3/uL RBC (4.2-5.4) 10^6/uL Hgb (12.0-16.0) g/dL Hct (37.0-47.0) % MCV (80-100) fL MCH (27.0-34.0) pg MCHC (33.0-35.0) g/dL Plt Count (150-450) 10^3/uL Neut % (Auto) (42.2-75.2) % Lymph % (Auto) (20.5-50.1) % Routt % (Auto) (2-8) % Eos % (Auto) (1.0-3.0) % Baso % (Auto) (0.0-1.0) % APTT 24.7 (22.0-34.0) SEC D-Dimer, Quantitative 296 (0-400) ng/mL ABG pH (7.35-7.45) ABG pCO2 (35-45) mmHg ABG pO2 (70-100) mmHg ABG HCO3 (22-26) mmol/L ABG O2 Saturation (95-100) % ABG Base Excess ((-2)-(+3)) mmol/L Nadir Test O2 Delivery Device Sodium 125 L D (136-145) mmol/L Potassium 4.0 (3.5-5.1) mmol/L Chloride 90 L (98-107) mmol/L Carbon Dioxide 20 L (21-32) mmol/L Anion Gap 19.0 H (7-13) mEq/L BUN 27 H (7-18) mg/dL Creatinine 2.80 H (0.55-1.02) mg/dL Est Cr Clr Drug Dosing 25.59 mL/min Estimated GFR (MDRD) 18 BUN/Creatinine Ratio 9.6 (No establ ref range) Glucose 733 H* (70-99) mg/dL POC Glucose (70-99) mg/dL Lactic Acid (0.4-2.0) mmol/L Calcium 8.9 (8.5-10.1) mg/dL Magnesium 2.3 (1.8-2.4) mg/dL Ferritin (8-252) mg/mL Total Bilirubin 0.4 (0.2-1.0) mg/dL AST 17 (15-37) U/L ALT 28 (14-59) U/L Alkaline Phosphatase 129 H (46-116) U/L Lactate Dehydrogenase 248 H (81-234) U/L Troponin I High Sens 9 (<=51) pg/mL C-Reactive Protein 14.2 H (0.0-0.9) mg/dL B-Natriuretic Peptide 280 H (0-100) pg/ml Total Protein 8.8 H (6.4-8.2) g/dL Albumin 2.4 L (3.4-5.0) g/dL Globulin 6.4 Albumin/Globulin Ratio 0.38 HCG, Qual Negative Urine Color (YELLOW) Urine Appearance (CLEAR) Urine pH (5.0-9.0) Ur Specific [place] (1.005-1.030) Urine Protein (NEGATIVE) Urine Glucose (UA) (NEGATIVE) Urine Ketones (NEGATIVE) Urine Occult Blood (NEGATIVE) Urine Nitrite (NEGATIVE) Urine Bilirubin (NEGATIVE) Urine Urobilinogen (0.2-1.0) mg/dL Ur Leukocyte Esterase (NEGATIVE) Urine RBC (0-5) /HPF Urine WBC (0-5/HPF) /HPF Ur Epithelial Cells (NOT SEEN) /HPF Amorphous Sediment (NOT SEEN) /HPF Urine Bacteria (0-FEW/HPF) /HPF Urine Mucus (NOT SEEN) /LPF Ketones Influenza Type A RNA (NEGATIVE) RSV RNA (INAAT) (NEGATIVE) Influenza Type B RNA (NEGATIVE) SARS-CoV-2 RNA (ASHLEY) (NEGATIVE) 04/23/21 04/23/21 04/23/21 Range/Units 18:05 18:05 18:05 WBC (5.0-10.0) 10^3/uL RBC (4.2-5.4) 10^6/uL Hgb (12.0-16.0) g/dL Hct (37.0-47.0) % MCV (80-100) fL MCH (27.0-34.0) pg MCHC (33.0-35.0) g/dL Plt Count (150-450) 10^3/uL Neut % (Auto) (42.2-75.2) % Lymph % (Auto) (20.5-50.1) % Routt % (Auto) (2-8) % Eos % (Auto) (1.0-3.0) % Baso % (Auto) (0.0-1.0) % APTT (22.0-34.0) SEC D-Dimer, Quantitative (0-400) ng/mL ABG pH (7.35-7.45) ABG pCO2 (35-45) mmHg ABG pO2 (70-100) mmHg ABG HCO3 (22-26) mmol/L ABG O2 Saturation (95-100) % ABG Base Excess ((-2)-(+3)) mmol/L Nadir Test O2 Delivery Device Sodium (136-145) mmol/L Potassium (3.5-5.1) mmol/L Chloride (98-107) mmol/L Carbon Dioxide (21-32) mmol/L Anion Gap (7-13) mEq/L BUN (7-18) mg/dL Creatinine (0.55-1.02) mg/dL Est Cr Clr Drug Dosing mL/min Estimated GFR (MDRD) BUN/Creatinine Ratio (No establ ref range) Glucose (70-99) mg/dL POC Glucose (70-99) mg/dL Lactic Acid 3.7 H* (0.4-2.0) mmol/L Calcium (8.5-10.1) mg/dL Magnesium (1.8-2.4) mg/dL Ferritin 174 (8-252) mg/mL Total Bilirubin (0.2-1.0) mg/dL AST (15-37) U/L ALT (14-59) U/L Alkaline Phosphatase (46-116) U/L Lactate Dehydrogenase (81-234) U/L Troponin I High Sens (<=51) pg/mL C-Reactive Protein (0.0-0.9) mg/dL B-Natriuretic Peptide (0-100) pg/ml Total Protein (6.4-8.2) g/dL Albumin (3.4-5.0) g/dL Globulin Albumin/Globulin Ratio HCG, Qual Urine Color (YELLOW) Urine Appearance (CLEAR) Urine pH (5.0-9.0) Ur Specific [place] (1.005-1.030) Urine Protein (NEGATIVE) Urine Glucose (UA) (NEGATIVE) Urine Ketones (NEGATIVE) Urine Occult Blood (NEGATIVE) Urine Nitrite (NEGATIVE) Urine Bilirubin (NEGATIVE) Urine Urobilinogen (0.2-1.0) mg/dL Ur Leukocyte Esterase (NEGATIVE) Urine RBC (0-5) /HPF Urine WBC (0-5/HPF) /HPF Ur Epithelial Cells (NOT SEEN) /HPF Amorphous Sediment (NOT SEEN) /HPF Urine Bacteria (0-FEW/HPF) /HPF Urine Mucus (NOT SEEN) /LPF Ketones Negative Influenza Type A RNA (NEGATIVE) RSV RNA (INAAT) (NEGATIVE) Influenza Type B RNA (NEGATIVE) SARS-CoV-2 RNA (ASHLEY) (NEGATIVE) 04/23/21 04/23/21 04/23/21 Range/Units 18:57 20:11 21:10 WBC (5.0-10.0) 10^3/uL RBC (4.2-5.4) 10^6/uL Hgb (12.0-16.0) g/dL Hct (37.0-47.0) % MCV (80-100) fL MCH (27.0-34.0) pg MCHC (33.0-35.0) g/dL Plt Count (150-450) 10^3/uL Neut % (Auto) (42.2-75.2) % Lymph % (Auto) (20.5-50.1) % Routt % (Auto) (2-8) % Eos % (Auto) (1.0-3.0) % Baso % (Auto) (0.0-1.0) % APTT (22.0-34.0) SEC D-Dimer, Quantitative (0-400) ng/mL ABG pH (7.35-7.45) ABG pCO2 (35-45) mmHg ABG pO2 (70-100) mmHg ABG HCO3 (22-26) mmol/L ABG O2 Saturation (95-100) % ABG Base Excess ((-2)-(+3)) mmol/L Nadir Test O2 Delivery Device Sodium (136-145) mmol/L Potassium (3.5-5.1) mmol/L Chloride (98-107) mmol/L Carbon Dioxide (21-32) mmol/L Anion Gap (7-13) mEq/L BUN (7-18) mg/dL Creatinine (0.55-1.02) mg/dL Est Cr Clr Drug Dosing mL/min Estimated GFR (MDRD) BUN/Creatinine Ratio (No establ ref range) Glucose (70-99) mg/dL POC Glucose 516 H* (70-99) mg/dL Lactic Acid (0.4-2.0) mmol/L Calcium (8.5-10.1) mg/dL Magnesium (1.8-2.4) mg/dL Ferritin (8-252) mg/mL Total Bilirubin (0.2-1.0) mg/dL AST (15-37) U/L ALT (14-59) U/L Alkaline Phosphatase (46-116) U/L Lactate Dehydrogenase (81-234) U/L Troponin I High Sens (<=51) pg/mL C-Reactive Protein (0.0-0.9) mg/dL B-Natriuretic Peptide (0-100) pg/ml Total Protein (6.4-8.2) g/dL Albumin (3.4-5.0) g/dL Globulin Albumin/Globulin Ratio HCG, Qual Urine Color Yellow (YELLOW) Urine Appearance Slightly cloudy (CLEAR) Urine pH 6.5 (5.0-9.0) Ur Specific [place] 1.020 (1.005-1.030) Urine Protein >=300 H (NEGATIVE) Urine Glucose (UA) 500 H (NEGATIVE) Urine Ketones Negative (NEGATIVE) Urine Occult Blood Small H (NEGATIVE) Urine Nitrite Negative (NEGATIVE) Urine Bilirubin Negative (NEGATIVE) Urine Urobilinogen 0.2 (0.2-1.0) mg/dL Ur Leukocyte Esterase Negative (NEGATIVE) Urine RBC 20-30 H (0-5) /HPF Urine WBC 0-5 (0-5/HPF) /HPF Ur Epithelial Cells Moderate H (NOT SEEN) /HPF Amorphous Sediment Moderate H (NOT SEEN) /HPF Urine Bacteria Few (0-FEW/HPF) /HPF Urine Mucus Few H (NOT SEEN) /LPF Ketones Influenza Type A RNA Negative (NEGATIVE) RSV RNA (INAAT) Positive H (NEGATIVE) Influenza Type B RNA Negative (NEGATIVE) SARS-CoV-2 RNA (ASHLEY) Negative (NEGATIVE) 04/23/21 04/23/21 04/24/21 Range/Units 21:55 22:40 00:17 WBC (5.0-10.0) 10^3/uL RBC (4.2-5.4) 10^6/uL Hgb (12.0-16.0) g/dL Hct (37.0-47.0) % MCV (80-100) fL MCH (27.0-34.0) pg MCHC (33.0-35.0) g/dL Plt Count (150-450) 10^3/uL Neut % (Auto) (42.2-75.2) % Lymph % (Auto) (20.5-50.1) % Routt % (Auto) (2-8) % Eos % (Auto) (1.0-3.0) % Baso % (Auto) (0.0-1.0) % APTT (22.0-34.0) SEC D-Dimer, Quantitative (0-400) ng/mL ABG pH (7.35-7.45) ABG pCO2 (35-45) mmHg ABG pO2 (70-100) mmHg ABG HCO3 (22-26) mmol/L ABG O2 Saturation (95-100) % ABG Base Excess ((-2)-(+3)) mmol/L Nadir Test O2 Delivery Device Sodium (136-145) mmol/L Potassium (3.5-5.1) mmol/L Chloride (98-107) mmol/L Carbon Dioxide (21-32) mmol/L Anion Gap (7-13) mEq/L BUN (7-18) mg/dL Creatinine (0.55-1.02) mg/dL Est Cr Clr Drug Dosing mL/min Estimated GFR (MDRD) BUN/Creatinine Ratio (No establ ref range) Glucose (70-99) mg/dL POC Glucose 372 H 145 H (70-99) mg/dL Lactic Acid 1.9 (0.4-2.0) mmol/L Calcium (8.5-10.1) mg/dL Magnesium (1.8-2.4) mg/dL Ferritin (8-252) mg/mL Total Bilirubin (0.2-1.0) mg/dL AST (15-37) U/L ALT (14-59) U/L Alkaline Phosphatase (46-116) U/L Lactate Dehydrogenase (81-234) U/L Troponin I High Sens (<=51) pg/mL C-Reactive Protein (0.0-0.9) mg/dL B-Natriuretic Peptide (0-100) pg/ml Total Protein (6.4-8.2) g/dL Albumin (3.4-5.0) g/dL Globulin Albumin/Globulin Ratio HCG, Qual Urine Color (YELLOW) Urine Appearance (CLEAR) Urine pH (5.0-9.0) Ur Specific [place] (1.005-1.030) Urine Protein (NEGATIVE) Urine Glucose (UA) (NEGATIVE) Urine Ketones (NEGATIVE) Urine Occult Blood (NEGATIVE) Urine Nitrite (NEGATIVE) Urine Bilirubin (NEGATIVE) Urine Urobilinogen (0.2-1.0) mg/dL Ur Leukocyte Esterase (NEGATIVE) Urine RBC (0-5) /HPF Urine WBC (0-5/HPF) /HPF Ur Epithelial Cells (NOT SEEN) /HPF Amorphous Sediment (NOT SEEN) /HPF Urine Bacteria (0-FEW/HPF) /HPF Urine Mucus (NOT SEEN) /LPF Ketones Influenza Type A RNA (NEGATIVE) RSV RNA (INAAT) (NEGATIVE) Influenza Type B RNA (NEGATIVE) SARS-CoV-2 RNA (ASHLEY) (NEGATIVE) 04/24/21 04/24/21 04/24/21 Range/Units 02:08 04:09 06:33 WBC 19.8 H (5.0-10.0) 10^3/uL RBC 3.15 L (4.2-5.4) 10^6/uL Hgb 9.4 L D (12.0-16.0) g/dL Hct 28.5 L (37.0-47.0) % MCV 90.5 (80-100) fL MCH 29.8 (27.0-34.0) pg MCHC 33.0 (33.0-35.0) g/dL Plt Count 360 (150-450) 10^3/uL Neut % (Auto) 83.7 H (42.2-75.2) % Lymph % (Auto) 11.8 L (20.5-50.1) % [place] % (Auto) 3.8 (2-8) % Eos % (Auto) 0.5 L (1.0-3.0) % Baso % (Auto) 0.2 (0.0-1.0) % APTT (22.0-34.0) SEC D-Dimer, Quantitative (0-400) ng/mL ABG pH (7.35-7.45) ABG pCO2 (35-45) mmHg ABG pO2 (70-100) mmHg ABG HCO3 (22-26) mmol/L ABG O2 Saturation (95-100) % ABG Base Excess ((-2)-(+3)) mmol/L Nadir Test O2 Delivery Device Sodium (136-145) mmol/L Potassium (3.5-5.1) mmol/L Chloride (98-107) mmol/L Carbon Dioxide (21-32) mmol/L Anion Gap (7-13) mEq/L BUN (7-18) mg/dL Creatinine (0.55-1.02) mg/dL Est Cr Clr Drug Dosing mL/min Estimated GFR (MDRD) BUN/Creatinine Ratio (No establ ref range) Glucose (70-99) mg/dL POC Glucose 132 H 160 H (70-99) mg/dL Lactic Acid (0.4-2.0) mmol/L Calcium (8.5-10.1) mg/dL Magnesium (1.8-2.4) mg/dL Ferritin (8-252) mg/mL Total Bilirubin (0.2-1.0) mg/dL AST (15-37) U/L ALT (14-59) U/L Alkaline Phosphatase (46-116) U/L Lactate Dehydrogenase (81-234) U/L Troponin I High Sens (<=51) pg/mL C-Reactive Protein (0.0-0.9) mg/dL B-Natriuretic Peptide (0-100) pg/ml Total Protein (6.4-8.2) g/dL Albumin (3.4-5.0) g/dL Globulin Albumin/Globulin Ratio HCG, Qual Urine Color (YELLOW) Urine Appearance (CLEAR) Urine pH (5.0-9.0) Ur Specific [place] (1.005-1.030) Urine Protein (NEGATIVE) Urine Glucose (UA) (NEGATIVE) Urine Ketones (NEGATIVE) Urine Occult Blood (NEGATIVE) Urine Nitrite (NEGATIVE) Urine Bilirubin (NEGATIVE) Urine Urobilinogen (0.2-1.0) mg/dL Ur Leukocyte Esterase (NEGATIVE) Urine RBC (0-5) /HPF Urine WBC (0-5/HPF) /HPF Ur Epithelial Cells (NOT SEEN) /HPF Amorphous Sediment (NOT SEEN) /HPF Urine Bacteria (0-FEW/HPF) /HPF Urine Mucus (NOT SEEN) /LPF Ketones Influenza Type A RNA (NEGATIVE) RSV RNA (INAAT) (NEGATIVE) Influenza Type B RNA (NEGATIVE) SARS-CoV-2 RNA (ASHLEY) (NEGATIVE) 04/24/21 04/24/21 Range/Units 06:33 06:33 WBC (5.0-10.0) 10^3/uL RBC (4.2-5.4) 10^6/uL Hgb (12.0-16.0) g/dL Hct (37.0-47.0) % MCV (80-100) fL MCH (27.0-34.0) pg MCHC (33.0-35.0) g/dL Plt Count (150-450) 10^3/uL Neut % (Auto) (42.2-75.2) % Lymph % (Auto) (20.5-50.1) % [place] % (Auto) (2-8) % Eos % (Auto) (1.0-3.0) % Baso % (Auto) (0.0-1.0) % APTT (22.0-34.0) SEC D-Dimer, Quantitative (0-400) ng/mL ABG pH (7.35-7.45) ABG pCO2 (35-45) mmHg ABG pO2 (70-100) mmHg ABG HCO3 (22-26) mmol/L ABG O2 Saturation (95-100) % ABG Base Excess ((-2)-(+3)) mmol/L Nadir Test O2 Delivery Device Sodium 135 L D (136-145) mmol/L Potassium 3.3 L (3.5-5.1) mmol/L Chloride 100 (98-107) mmol/L Carbon Dioxide 26 (21-32) mmol/L Anion Gap 12.3 (7-13) mEq/L BUN 26 H (7-18) mg/dL Creatinine 2.45 H (0.55-1.02) mg/dL Est Cr Clr Drug Dosing 29.25 mL/min Estimated GFR (MDRD) 21 BUN/Creatinine Ratio (No establ ref range) Glucose 221 H (70-99) mg/dL POC Glucose (70-99) mg/dL Lactic Acid (0.4-2.0) mmol/L Calcium 8.0 L (8.5-10.1) mg/dL Magnesium (1.8-2.4) mg/dL Ferritin (8-252) mg/mL Total Bilirubin (0.2-1.0) mg/dL AST (15-37) U/L ALT (14-59) U/L Alkaline Phosphatase (46-116) U/L Lactate Dehydrogenase (81-234) U/L Troponin I High Sens (<=51) pg/mL C-Reactive Protein 22.2 H (0.0-0.9) mg/dL B-Natriuretic Peptide (0-100) pg/ml Total Protein (6.4-8.2) g/dL Albumin (3.4-5.0) g/dL Globulin Albumin/Globulin Ratio HCG, Qual Urine Color (YELLOW) Urine Appearance (CLEAR) Urine pH (5.0-9.0) Ur Specific [place] (1.005-1.030) Urine Protein (NEGATIVE) Urine Glucose (UA) (NEGATIVE) Urine Ketones (NEGATIVE) Urine Occult Blood (NEGATIVE) Urine Nitrite (NEGATIVE) Urine Bilirubin (NEGATIVE) Urine Urobilinogen (0.2-1.0) mg/dL Ur Leukocyte Esterase (NEGATIVE) Urine RBC (0-5) /HPF Urine WBC (0-5/HPF) /HPF Ur Epithelial Cells (NOT SEEN) /HPF Amorphous Sediment (NOT SEEN) /HPF Urine Bacteria (0-FEW/HPF) /HPF Urine Mucus (NOT SEEN) /LPF Ketones Influenza Type A RNA (NEGATIVE) RSV RNA (INAAT) (NEGATIVE) Influenza Type B RNA (NEGATIVE) SARS-CoV-2 RNA (ASHLEY) (NEGATIVE) Med Orders - Current: Current Medications Acetaminophen (Acetaminophen 325 Mg Tab) 650 mg PO Q4H PRN PRN Reason: Pain (Mild 1-3)/fever Last Admin: 04/23/21 22:17 Dose: 650 mg Documented by: Albuterol/Ipratropium (Albuterol/Ipratropium 3.0-0.5 Mg/3 Ml Neb Soln) 3 ml NEB Q4HRRT [facility] Last Admin: 04/24/21 07:55 Dose: 3 ml Documented by: Azithromycin (Azithromycin 250 Mg Tab) 500 mg PO DAILY [facility] Last Admin: 04/23/21 21:52 Dose: 500 mg Documented by: Bisacodyl (Bisacodyl 5 Mg Tab) 5 mg PO DAILY PRN PRN Reason: Constipation Docusate Sodium (Docusate Sodium 100 Mg Cap) 100 mg PO BID PRN PRN Reason: Constipation Enoxaparin Sodium (Enoxaparin 30 Mg/0.3 Ml Syringe) 30 mg SUBCUT BEDTIME [facility] Last Admin: 04/23/21 21:53 Dose: 30 mg Documented by: Gabapentin (Gabapentin 300 Mg Cap) 300 mg PO TID [facility] Last Admin: 04/24/21 00:47 Dose: 300 mg Documented by: Insulin Regular in 0.9 % NACL (Myxredlin In Ns 100 Unit/100 Ml) 100 unit in 100 mls @ 9.072 mls/hr IV TITRATE [facility]; Protocol Last Admin: 04/23/21 19:40 Dose: 0.1 units/kg/hr, 9.072 mls/hr Documented by: Insulin Glargine (Insulin Glarg,Human.Rec.Analog 100 Unit/Ml) 50 unit SUBCUT BID [facility] Last Admin: 04/23/21 21:56 Dose: 50 units Documented by: Insulin Human Lispro (Insulin Lispro 100 Units/Ml 3 Ml Vial) 20 unit SUBCUT TIDMEALS [facility] Ondansetron HCl (Ondansetron 4 Mg/2 Ml Sdv) 4 mg IVPUSH Q6H PRN PRN Reason: Nausea/Vomiting Sodium Chloride (Sodium Chloride 0.9% 10 Ml Syringe) 10 ml FLUSH ASDIRECTED PRN PRN Reason: Keep Vein Open Last Admin: 04/23/21 18:12 Dose: 10 ml Documented by: Discontinued Medications Albuterol/Ipratropium (Albuterol/Ipratropium 3.0-0.5 Mg/3 Ml Neb Soln) 3 ml NEB ONETIME ONE Stop: 04/23/21 17:51 Last Admin: 04/23/21 18:02 Dose: 3 ml Documented by: Azithromycin (Azithromycin 250 Mg Tab) 250 mg PO DAILY ONE Stop: 04/23/21 20:45 Last Admin: 04/23/21 21:53 Dose: Not Given Documented by: Dextrose/Water (50% Dextrose In Water 50 Ml Syringe) 50 ml IVPUSH Q15M PRN PRN Reason: Hypoglycemia Diphtheria/Tetanus/Acell Pertussis (Diphtheria,Pertussis(Acell),Tetanus Vaccine 0.5 Ml Syringe) 0.5 ml IM .ONCE ONE Stop: 04/24/21 09:01 Glucagon (Glucagon,Human Recombinant 1 Mg Vial) 1 mg IM Q15M PRN PRN Reason: Hypoglycemia Ceftriaxone Sodium 2 gm/ (Sodium Chloride) 100 mls @ 200 mls/hr IV ONETIME ONE Stop: 04/23/21 19:09 Last Admin: 04/23/21 19:14 Dose: 200 mls/hr Documented by: Azithromycin 500 mg/ Sodium (Chloride) 250 mls @ 250 mls/hr IV ONETIME ONE Stop: 04/23/21 19:39 Last Admin: 04/23/21 20:22 Dose: 250 mls/hr Documented by: Sodium Chloride (Normal Saline) 1,000 mls @ 999 mls/hr IV .BOLUS ONE Stop: 04/23/21 19:46 Last Admin: 04/23/21 19:04 Dose: 999 mls/hr Documented by: Ceftriaxone Sodium 2 gm/ (Sodium Chloride) 100 mls @ 200 mls/hr IV ONETIME ONE Stop: 04/23/21 21:15 Last Admin: 04/23/21 21:53 Dose: Not Given Documented by: Sodium Bicarbonate 100 meq/ (Dextrose/Water) 1,100 mls @ 100 mls/hr IV ONETIME ONE Stop: 04/24/21 07:46 Last Infusion: 04/24/21 10:25 Dose: Infused Documented by: Insulin Human Regular (Insulin Regular, Human 100 Units/Ml 3 Ml Vial) 10 unit IV ONETIME ONE Stop: 04/23/21 18:47 Last Admin: 04/23/21 19:05 Dose: 10 units Documented by: Promethazine HCl/Codeine (Codeine/Promethazine 10-6.25 Mg/5 Ml Syrup 5 Ml Ud Cup) 10 ml PO ONETIME ONE Stop: 04/23/21 18:44 Last Admin: 04/23/21 19:02 Dose: 10 ml Documented by: - Exam General: Alert, Oriented Neck: Supple Lungs: Decreased Breath Sounds (better), Wheezing (better) Cardiovascular: Regular Rate, Regular Rhythm Back Exam: Normal Inspection Extremities: Normal Inspection Skin: Warm Neurological: No New Focal Deficit Psy/Mental Status: Alert - Patient Data Lab Results Last 24 hrs: Laboratory Results - last 24 hr 04/23/21 04/23/21 04/23/21 Range/Units 17:28 17:51 18:05 WBC 20.8 H (5.0-10.0) 10^3/uL RBC 4.13 L (4.2-5.4) 10^6/uL Hgb 12.5 D (12.0-16.0) g/dL Hct 37.5 (37.0-47.0) % MCV 90.8 (80-100) fL MCH 30.3 (27.0-34.0) pg MCHC 33.3 (33.0-35.0) g/dL Plt Count 430 (150-450) 10^3/uL Neut % (Auto) 91.4 H (42.2-75.2) % Lymph % (Auto) 5.0 L (20.5-50.1) % Routt % (Auto) 3.1 (2-8) % Eos % (Auto) 0.3 L (1.0-3.0) % Baso % (Auto) 0.2 (0.0-1.0) % APTT (22.0-34.0) SEC D-Dimer, Quantitative (0-400) ng/mL ABG pH 7.43 (7.35-7.45) ABG pCO2 29 L (35-45) mmHg ABG pO2 76 (70-100) mmHg ABG HCO3 18.7 L (22-26) mmol/L ABG O2 Saturation 96 (95-100) % ABG Base Excess -4 L ((-2)-(+3)) mmol/L Nadir Test Positive O2 Delivery Device Simple mask Sodium (136-145) mmol/L Potassium (3.5-5.1) mmol/L Chloride (98-107) mmol/L Carbon Dioxide (21-32) mmol/L Anion Gap (7-13) mEq/L BUN (7-18) mg/dL Creatinine (0.55-1.02) mg/dL Est Cr Clr Drug Dosing mL/min Estimated GFR (MDRD) BUN/Creatinine Ratio (No establ ref range) Glucose (70-99) mg/dL POC Glucose (70-99) mg/dL Lactic Acid (0.4-2.0) mmol/L Calcium (8.5-10.1) mg/dL Magnesium (1.8-2.4) mg/dL Ferritin (8-252) mg/mL Total Bilirubin (0.2-1.0) mg/dL AST (15-37) U/L ALT (14-59) U/L Alkaline Phosphatase (46-116) U/L Lactate Dehydrogenase (81-234) U/L Troponin I High Sens (<=51) pg/mL C-Reactive Protein (0.0-0.9) mg/dL B-Natriuretic Peptide (0-100) pg/ml Total Protein (6.4-8.2) g/dL Albumin (3.4-5.0) g/dL Globulin Albumin/Globulin Ratio HCG, Qual Urine Color (YELLOW) Urine Appearance (CLEAR) Urine pH (5.0-9.0) Ur Specific [place] (1.005-1.030) Urine Protein (NEGATIVE) Urine Glucose (UA) (NEGATIVE) Urine Ketones (NEGATIVE) Urine Occult Blood (NEGATIVE) Urine Nitrite (NEGATIVE) Urine Bilirubin (NEGATIVE) Urine Urobilinogen (0.2-1.0) mg/dL Ur Leukocyte Esterase (NEGATIVE) Urine RBC (0-5) /HPF Urine WBC (0-5/HPF) /HPF Ur Epithelial Cells (NOT SEEN) /HPF Amorphous Sediment (NOT SEEN) /HPF Urine Bacteria (0-FEW/HPF) /HPF Urine Mucus (NOT SEEN) /LPF Ketones Influenza Type A RNA (NEGATIVE) RSV RNA (INAAT) (NEGATIVE) Influenza Type B RNA (NEGATIVE) SARS-CoV-2 RNA (ASHLEY) Negative (NEGATIVE) 04/23/21 04/23/21 04/23/21 Range/Units 18:05 18:05 18:05 WBC (5.0-10.0) 10^3/uL RBC (4.2-5.4) 10^6/uL Hgb (12.0-16.0) g/dL Hct (37.0-47.0) % MCV (80-100) fL MCH (27.0-34.0) pg MCHC (33.0-35.0) g/dL Plt Count (150-450) 10^3/uL Neut % (Auto) (42.2-75.2) % Lymph % (Auto) (20.5-50.1) % Routt % (Auto) (2-8) % Eos % (Auto) (1.0-3.0) % Baso % (Auto) (0.0-1.0) % APTT 24.7 (22.0-34.0) SEC D-Dimer, Quantitative 296 (0-400) ng/mL ABG pH (7.35-7.45) ABG pCO2 (35-45) mmHg ABG pO2 (70-100) mmHg ABG HCO3 (22-26) mmol/L ABG O2 Saturation (95-100) % ABG Base Excess ((-2)-(+3)) mmol/L Nadir Test O2 Delivery Device Sodium 125 L D (136-145) mmol/L Potassium 4.0 (3.5-5.1) mmol/L Chloride 90 L (98-107) mmol/L Carbon Dioxide 20 L (21-32) mmol/L Anion Gap 19.0 H (7-13) mEq/L BUN 27 H (7-18) mg/dL Creatinine 2.80 H (0.55-1.02) mg/dL Est Cr Clr Drug Dosing 25.59 mL/min Estimated GFR (MDRD) 18 BUN/Creatinine Ratio 9.6 (No establ ref range) Glucose 733 H* (70-99) mg/dL POC Glucose (70-99) mg/dL Lactic Acid (0.4-2.0) mmol/L Calcium 8.9 (8.5-10.1) mg/dL Magnesium 2.3 (1.8-2.4) mg/dL Ferritin (8-252) mg/mL Total Bilirubin 0.4 (0.2-1.0) mg/dL AST 17 (15-37) U/L ALT 28 (14-59) U/L Alkaline Phosphatase 129 H (46-116) U/L Lactate Dehydrogenase 248 H (81-234) U/L Troponin I High Sens 9 (<=51) pg/mL C-Reactive Protein 14.2 H (0.0-0.9) mg/dL B-Natriuretic Peptide 280 H (0-100) pg/ml Total Protein 8.8 H (6.4-8.2) g/dL Albumin 2.4 L (3.4-5.0) g/dL Globulin 6.4 Albumin/Globulin Ratio 0.38 HCG, Qual Negative Urine Color (YELLOW) Urine Appearance (CLEAR) Urine pH (5.0-9.0) Ur Specific [place] (1.005-1.030) Urine Protein (NEGATIVE) Urine Glucose (UA) (NEGATIVE) Urine Ketones (NEGATIVE) Urine Occult Blood (NEGATIVE) Urine Nitrite (NEGATIVE) Urine Bilirubin (NEGATIVE) Urine Urobilinogen (0.2-1.0) mg/dL Ur Leukocyte Esterase (NEGATIVE) Urine RBC (0-5) /HPF Urine WBC (0-5/HPF) /HPF Ur Epithelial Cells (NOT SEEN) /HPF Amorphous Sediment (NOT SEEN) /HPF Urine Bacteria (0-FEW/HPF) /HPF Urine Mucus (NOT SEEN) /LPF Ketones Influenza Type A RNA (NEGATIVE) RSV RNA (INAAT) (NEGATIVE) Influenza Type B RNA (NEGATIVE) SARS-CoV-2 RNA (ASHLEY) (NEGATIVE) 04/23/21 04/23/21 04/23/21 Range/Units 18:05 18:05 18:05 WBC (5.0-10.0) 10^3/uL RBC (4.2-5.4) 10^6/uL Hgb (12.0-16.0) g/dL Hct (37.0-47.0) % MCV (80-100) fL MCH (27.0-34.0) pg MCHC (33.0-35.0) g/dL Plt Count (150-450) 10^3/uL Neut % (Auto) (42.2-75.2) % Lymph % (Auto) (20.5-50.1) % [place]t % (Auto) (2-8) % Eos % (Auto) (1.0-3.0) % Baso % (Auto) (0.0-1.0) % APTT (22.0-34.0) SEC D-Dimer, Quantitative (0-400) ng/mL ABG pH (7.35-7.45) ABG pCO2 (35-45) mmHg ABG pO2 (70-100) mmHg ABG HCO3 (22-26) mmol/L ABG O2 Saturation (95-100) % ABG Base Excess ((-2)-(+3)) mmol/L Nadir Test O2 Delivery Device Sodium (136-145) mmol/L Potassium (3.5-5.1) mmol/L Chloride (98-107) mmol/L Carbon Dioxide (21-32) mmol/L Anion Gap (7-13) mEq/L BUN (7-18) mg/dL Creatinine (0.55-1.02) mg/dL Est Cr Clr Drug Dosing mL/min Estimated GFR (MDRD) BUN/Creatinine Ratio (No establ ref range) Glucose (70-99) mg/dL POC Glucose (70-99) mg/dL Lactic Acid 3.7 H* (0.4-2.0) mmol/L Calcium (8.5-10.1) mg/dL Magnesium (1.8-2.4) mg/dL Ferritin 174 (8-252) mg/mL Total Bilirubin (0.2-1.0) mg/dL AST (15-37) U/L ALT (14-59) U/L Alkaline Phosphatase (46-116) U/L Lactate Dehydrogenase (81-234) U/L Troponin I High Sens (<=51) pg/mL C-Reactive Protein (0.0-0.9) mg/dL B-Natriuretic Peptide (0-100) pg/ml Total Protein (6.4-8.2) g/dL Albumin (3.4-5.0) g/dL Globulin Albumin/Globulin Ratio HCG, Qual Urine Color (YELLOW) Urine Appearance (CLEAR) Urine pH (5.0-9.0) Ur Specific [place] (1.005-1.030) Urine Protein (NEGATIVE) Urine Glucose (UA) (NEGATIVE) Urine Ketones (NEGATIVE) Urine Occult Blood (NEGATIVE) Urine Nitrite (NEGATIVE) Urine Bilirubin (NEGATIVE) Urine Urobilinogen (0.2-1.0) mg/dL Ur Leukocyte Esterase (NEGATIVE) Urine RBC (0-5) /HPF Urine WBC (0-5/HPF) /HPF Ur Epithelial Cells (NOT SEEN) /HPF Amorphous Sediment (NOT SEEN) /HPF Urine Bacteria (0-FEW/HPF) /HPF Urine Mucus (NOT SEEN) /LPF Ketones Negative Influenza Type A RNA (NEGATIVE) RSV RNA (INAAT) (NEGATIVE) Influenza Type B RNA (NEGATIVE) SARS-CoV-2 RNA (ASHLEY) (NEGATIVE) 04/23/21 04/23/21 04/23/21 Range/Units 18:57 20:11 21:10 WBC (5.0-10.0) 10^3/uL RBC (4.2-5.4) 10^6/uL Hgb (12.0-16.0) g/dL Hct (37.0-47.0) % MCV (80-100) fL MCH (27.0-34.0) pg MCHC (33.0-35.0) g/dL Plt Count (150-450) 10^3/uL Neut % (Auto) (42.2-75.2) % Lymph % (Auto) (20.5-50.1) % Routt % (Auto) (2-8) % Eos % (Auto) (1.0-3.0) % Baso % (Auto) (0.0-1.0) % APTT (22.0-34.0) SEC D-Dimer, Quantitative (0-400) ng/mL ABG pH (7.35-7.45) ABG pCO2 (35-45) mmHg ABG pO2 (70-100) mmHg ABG HCO3 (22-26) mmol/L ABG O2 Saturation (95-100) % ABG Base Excess ((-2)-(+3)) mmol/L Nadir Test O2 Delivery Device Sodium (136-145) mmol/L Potassium (3.5-5.1) mmol/L Chloride (98-107) mmol/L Carbon Dioxide (21-32) mmol/L Anion Gap (7-13) mEq/L BUN (7-18) mg/dL Creatinine (0.55-1.02) mg/dL Est Cr Clr Drug Dosing mL/min Estimated GFR (MDRD) BUN/Creatinine Ratio (No establ ref range) Glucose (70-99) mg/dL POC Glucose 516 H* (70-99) mg/dL Lactic Acid (0.4-2.0) mmol/L Calcium (8.5-10.1) mg/dL Magnesium (1.8-2.4) mg/dL Ferritin (8-252) mg/mL Total Bilirubin (0.2-1.0) mg/dL AST (15-37) U/L ALT (14-59) U/L Alkaline Phosphatase (46-116) U/L Lactate Dehydrogenase (81-234) U/L Troponin I High Sens (<=51) pg/mL C-Reactive Protein (0.0-0.9) mg/dL B-Natriuretic Peptide (0-100) pg/ml Total Protein (6.4-8.2) g/dL Albumin (3.4-5.0) g/dL Globulin Albumin/Globulin Ratio HCG, Qual Urine Color Yellow (YELLOW) Urine Appearance Slightly cloudy (CLEAR) Urine pH 6.5 (5.0-9.0) Ur Specific [place] 1.020 (1.005-1.030) Urine Protein >=300 H (NEGATIVE) Urine Glucose (UA) 500 H (NEGATIVE) Urine Ketones Negative (NEGATIVE) Urine Occult Blood Small H (NEGATIVE) Urine Nitrite Negative (NEGATIVE) Urine Bilirubin Negative (NEGATIVE) Urine Urobilinogen 0.2 (0.2-1.0) mg/dL Ur Leukocyte Esterase Negative (NEGATIVE) Urine RBC 20-30 H (0-5) /HPF Urine WBC 0-5 (0-5/HPF) /HPF Ur Epithelial Cells Moderate H (NOT SEEN) /HPF Amorphous Sediment Moderate H (NOT SEEN) /HPF Urine Bacteria Few (0-FEW/HPF) /HPF Urine Mucus Few H (NOT SEEN) /LPF Ketones Influenza Type A RNA Negative (NEGATIVE) RSV RNA (INAAT) Positive H (NEGATIVE) Influenza Type B RNA Negative (NEGATIVE) SARS-CoV-2 RNA (ASHLEY) Negative (NEGATIVE) 04/23/21 04/23/21 04/24/21 Range/Units 21:55 22:40 00:17 WBC (5.0-10.0) 10^3/uL RBC (4.2-5.4) 10^6/uL Hgb (12.0-16.0) g/dL Hct (37.0-47.0) % MCV (80-100) fL MCH (27.0-34.0) pg MCHC (33.0-35.0) g/dL Plt Count (150-450) 10^3/uL Neut % (Auto) (42.2-75.2) % Lymph % (Auto) (20.5-50.1) % Routt % (Auto) (2-8) % Eos % (Auto) (1.0-3.0) % Baso % (Auto) (0.0-1.0) % APTT (22.0-34.0) SEC D-Dimer, Quantitative (0-400) ng/mL ABG pH (7.35-7.45) ABG pCO2 (35-45) mmHg ABG pO2 (70-100) mmHg ABG HCO3 (22-26) mmol/L ABG O2 Saturation (95-100) % ABG Base Excess ((-2)-(+3)) mmol/L Nadir Test O2 Delivery Device Sodium (136-145) mmol/L Potassium (3.5-5.1) mmol/L Chloride (98-107) mmol/L Carbon Dioxide (21-32) mmol/L Anion Gap (7-13) mEq/L BUN (7-18) mg/dL Creatinine (0.55-1.02) mg/dL Est Cr Clr Drug Dosing mL/min Estimated GFR (MDRD) BUN/Creatinine Ratio (No establ ref range) Glucose (70-99) mg/dL POC Glucose 372 H 145 H (70-99) mg/dL Lactic Acid 1.9 (0.4-2.0) mmol/L Calcium (8.5-10.1) mg/dL Magnesium (1.8-2.4) mg/dL Ferritin (8-252) mg/mL Total Bilirubin (0.2-1.0) mg/dL AST (15-37) U/L ALT (14-59) U/L Alkaline Phosphatase (46-116) U/L Lactate Dehydrogenase (81-234) U/L Troponin I High Sens (<=51) pg/mL C-Reactive Protein (0.0-0.9) mg/dL B-Natriuretic Peptide (0-100) pg/ml Total Protein (6.4-8.2) g/dL Albumin (3.4-5.0) g/dL Globulin Albumin/Globulin Ratio HCG, Qual Urine Color (YELLOW) Urine Appearance (CLEAR) Urine pH (5.0-9.0) Ur Specific [place] (1.005-1.030) Urine Protein (NEGATIVE) Urine Glucose (UA) (NEGATIVE) Urine Ketones (NEGATIVE) Urine Occult Blood (NEGATIVE) Urine Nitrite (NEGATIVE) Urine Bilirubin (NEGATIVE) Urine Urobilinogen (0.2-1.0) mg/dL Ur Leukocyte Esterase (NEGATIVE) Urine RBC (0-5) /HPF Urine WBC (0-5/HPF) /HPF Ur Epithelial Cells (NOT SEEN) /HPF Amorphous Sediment (NOT SEEN) /HPF Urine Bacteria (0-FEW/HPF) /HPF Urine Mucus (NOT SEEN) /LPF Ketones Influenza Type A RNA (NEGATIVE) RSV RNA (INAAT) (NEGATIVE) Influenza Type B RNA (NEGATIVE) SARS-CoV-2 RNA (ASHLEY) (NEGATIVE) 04/24/21 04/24/21 04/24/21 Range/Units 02:08 04:09 06:33 WBC 19.8 H (5.0-10.0) 10^3/uL RBC 3.15 L (4.2-5.4) 10^6/uL Hgb 9.4 L D (12.0-16.0) g/dL Hct 28.5 L (37.0-47.0) % MCV 90.5 (80-100) fL MCH 29.8 (27.0-34.0) pg MCHC 33.0 (33.0-35.0) g/dL Plt Count 360 (150-450) 10^3/uL Neut % (Auto) 83.7 H (42.2-75.2) % Lymph % (Auto) 11.8 L (20.5-50.1) % Routt % (Auto) 3.8 (2-8) % Eos % (Auto) 0.5 L (1.0-3.0) % Baso % (Auto) 0.2 (0.0-1.0) % APTT (22.0-34.0) SEC D-Dimer, Quantitative (0-400) ng/mL ABG pH (7.35-7.45) ABG pCO2 (35-45) mmHg ABG pO2 (70-100) mmHg ABG HCO3 (22-26) mmol/L ABG O2 Saturation (95-100) % ABG Base Excess ((-2)-(+3)) mmol/L Nadir Test O2 Delivery Device Sodium (136-145) mmol/L Potassium (3.5-5.1) mmol/L Chloride (98-107) mmol/L Carbon Dioxide (21-32) mmol/L Anion Gap (7-13) mEq/L BUN (7-18) mg/dL Creatinine (0.55-1.02) mg/dL Est Cr Clr Drug Dosing mL/min Estimated GFR (MDRD) BUN/Creatinine Ratio (No establ ref range) Glucose (70-99) mg/dL POC Glucose 132 H 160 H (70-99) mg/dL Lactic Acid (0.4-2.0) mmol/L Calcium (8.5-10.1) mg/dL Magnesium (1.8-2.4) mg/dL Ferritin (8-252) mg/mL Total Bilirubin (0.2-1.0) mg/dL AST (15-37) U/L ALT (14-59) U/L Alkaline Phosphatase (46-116) U/L Lactate Dehydrogenase (81-234) U/L Troponin I High Sens (<=51) pg/mL C-Reactive Protein (0.0-0.9) mg/dL B-Natriuretic Peptide (0-100) pg/ml Total Protein (6.4-8.2) g/dL Albumin (3.4-5.0) g/dL Globulin Albumin/Globulin Ratio HCG, Qual Urine Color (YELLOW) Urine Appearance (CLEAR) Urine pH (5.0-9.0) Ur Specific [place] (1.005-1.030) Urine Protein (NEGATIVE) Urine Glucose (UA) (NEGATIVE) Urine Ketones (NEGATIVE) Urine Occult Blood (NEGATIVE) Urine Nitrite (NEGATIVE) Urine Bilirubin (NEGATIVE) Urine Urobilinogen (0.2-1.0) mg/dL Ur Leukocyte Esterase (NEGATIVE) Urine RBC (0-5) /HPF Urine WBC (0-5/HPF) /HPF Ur Epithelial Cells (NOT SEEN) /HPF Amorphous Sediment (NOT SEEN) /HPF Urine Bacteria (0-FEW/HPF) /HPF Urine Mucus (NOT SEEN) /LPF Ketones Influenza Type A RNA (NEGATIVE) RSV RNA (INAAT) (NEGATIVE) Influenza Type B RNA (NEGATIVE) SARS-CoV-2 RNA (ASHLEY) (NEGATIVE) 04/24/21 04/24/21 Range/Units 06:33 06:33 WBC (5.0-10.0) 10^3/uL RBC (4.2-5.4) 10^6/uL Hgb (12.0-16.0) g/dL Hct (37.0-47.0) % MCV (80-100) fL MCH (27.0-34.0) pg MCHC (33.0-35.0) g/dL Plt Count (150-450) 10^3/uL Neut % (Auto) (42.2-75.2) % Lymph % (Auto) (20.5-50.1) % [place]t % (Auto) (2-8) % Eos % (Auto) (1.0-3.0) % Baso % (Auto) (0.0-1.0) % APTT (22.0-34.0) SEC D-Dimer, Quantitative (0-400) ng/mL ABG pH (7.35-7.45) ABG pCO2 (35-45) mmHg ABG pO2 (70-100) mmHg ABG HCO3 (22-26) mmol/L ABG O2 Saturation (95-100) % ABG Base Excess ((-2)-(+3)) mmol/L Nadir Test O2 Delivery Device Sodium 135 L D (136-145) mmol/L Potassium 3.3 L (3.5-5.1) mmol/L Chloride 100 (98-107) mmol/L Carbon Dioxide 26 (21-32) mmol/L Anion Gap 12.3 (7-13) mEq/L BUN 26 H (7-18) mg/dL Creatinine 2.45 H (0.55-1.02) mg/dL Est Cr Clr Drug Dosing 29.25 mL/min Estimated GFR (MDRD) 21 BUN/Creatinine Ratio (No establ ref range) Glucose 221 H (70-99) mg/dL POC Glucose (70-99) mg/dL Lactic Acid (0.4-2.0) mmol/L Calcium 8.0 L (8.5-10.1) mg/dL Magnesium (1.8-2.4) mg/dL Ferritin (8-252) mg/mL Total Bilirubin (0.2-1.0) mg/dL AST (15-37) U/L ALT (14-59) U/L Alkaline Phosphatase (46-116) U/L Lactate Dehydrogenase (81-234) U/L Troponin I High Sens (<=51) pg/mL C-Reactive Protein 22.2 H (0.0-0.9) mg/dL B-Natriuretic Peptide (0-100) pg/ml Total Protein (6.4-8.2) g/dL Albumin (3.4-5.0) g/dL Globulin Albumin/Globulin Ratio HCG, Qual Urine Color (YELLOW) Urine Appearance (CLEAR) Urine pH (5.0-9.0) Ur Specific [place] (1.005-1.030) Urine Protein (NEGATIVE) Urine Glucose (UA) (NEGATIVE) Urine Ketones (NEGATIVE) Urine Occult Blood (NEGATIVE) Urine Nitrite (NEGATIVE) Urine Bilirubin (NEGATIVE) Urine Urobilinogen (0.2-1.0) mg/dL Ur Leukocyte Esterase (NEGATIVE) Urine RBC (0-5) /HPF Urine WBC (0-5/HPF) /HPF Ur Epithelial Cells (NOT SEEN) /HPF Amorphous Sediment (NOT SEEN) /HPF Urine Bacteria (0-FEW/HPF) /HPF Urine Mucus (NOT SEEN) /LPF Ketones Influenza Type A RNA (NEGATIVE) RSV RNA (INAAT) (NEGATIVE) Influenza Type B RNA (NEGATIVE) SARS-CoV-2 RNA (ASHLEY) (NEGATIVE) Result Diagrams: 04/24/21 06:33 04/24/21 06:33 Sepsis Event Note - Evaluation Sepsis Screening Result: Sepsis Risk - Focused Exam Vital Signs: Vital Signs Temp Pulse Resp BP Pulse Ox Pulse Ox 04/24/21 07:58 98.4 F 98 20 154/72 H 98 04/24/21 07:55 101 H 98 04/24/21 04:00 97.8 F 97 26 H 152/70 H 100 04/24/21 00:38 98.8 F 93 26 H 151/62 H 96 - Problem List Review Problem List Initiated/Reviewed/Updated: Yes - My Orders Last 24 Hours: My Active Orders 04/23/21 20:38 Patient Status [ADT] Routine Blood Glucose Check, Bedside [RC] WITHMEALSANDBED Oxygen Therapy [RC] PRN Up ad Tata [RC] ASDIRECTED VTE/DVT Education [RC] PER UNIT ROUTINE Vital Signs [RC] 00,04,08,12,16,20 Respiratory Care Assess and Treatment [CONS] Routine Acetaminophen [TylenoL] 650 mg PO Q4H PRN Docusate Sodium [Colace] 100 mg PO BID PRN Ondansetron [Zofran] 4 mg IVPUSH Q6H PRN bisacodyL [Dulcolax] 5 mg PO DAILY PRN Resuscitation Status Routine 04/23/21 20:39 Cardiac Monitoring [RC] CONTINUOUS Intake and Output [RC] 06,14,22 04/23/21 20:49 RT Aerosol Therapy [RC] ASDIRECTED Consult to Respiratory Therapy [Respiratory Care Assess and Treatment] [CONS] Routine 04/23/21 21:00 Azithromycin [Zithromax] 500 mg PO DAILY Enoxaparin [Lovenox] 30 mg SUBCUT BEDTIME 04/23/21 21:24 Accu Check [Blood Glucose Check, Bedside] [RC] Q2HR 04/23/21 21:45 Insulin Glarg,Human.Rec.Analog [LantUS] 50 unit SUBCUT BID 04/23/21 23:00 Albuterol/Ipratropium [DuoNeb 3.0-0.5 MG/3 ML] 3 ml NEB Q4HRRT 04/23/21 23:38 Vaccine to be Administered/Admin Charge [RC] ASDIRECTED 04/24/21 00:45 Gabapentin [Neurontin] 300 mg PO TID 04/24/21 Breakfast Consistent Carbohydrate Diet [DIET] 04/24/21 08:00 Insulin Lispro [HumaLOG] 20 unit SUBCUT TIDMEALS 04/25/21 05:11 BASIC METABOLIC PANEL,BMP [CHEM] AM CBC WITH AUTO DIFF [HEME] AM 04/26/21 05:11 BASIC METABOLIC PANEL,BMP [CHEM] AM CBC WITH AUTO DIFF [HEME] AM 04/27/21 05:11 BASIC METABOLIC PANEL,BMP [CHEM] AM CBC WITH AUTO DIFF [HEME] AM 04/28/21 05:11 BASIC METABOLIC PANEL,BMP [CHEM] AM CBC WITH AUTO DIFF [HEME] AM 04/29/21 05:11 BASIC METABOLIC PANEL,BMP [CHEM] AM CBC WITH AUTO DIFF [HEME] AM 04/30/21 05:11 BASIC METABOLIC PANEL,BMP [CHEM] AM CBC WITH AUTO DIFF [HEME] AM - Plan Plan:: 1- Pneumonia? respiratory failure with hypoxia/ ? Pneumonia. Leukocytosis/ sepsis RSV pneumonia HYPERGLYCEMIA Uncontrolled dm ckd Hyponatremia Zithromax po Ceftriaxone Nebs DC IV Bicarbonate resume home insulin repeat labs in am DVT prophylaxis with heparin
[2021-04-24] MEDS ORDERED: Potassium Chloride 10 MEQ Tab.ER PO ONE (10:40)
[2021-04-24] MEDS: Insulin Glarg,Human.Rec.Analog 100 Unit/ML SUBCUT SCH ×2 (10:56→22:00)
[2021-04-24] MEDS: Azithromycin 250 MG Tab PO SCH (11:02)
[2021-04-24] MEDS: Metoprolol Succinate 50 MG Tab.ER PO SCH (12:45)
[2021-04-24] MEDS ORDERED: Glucagon,Human Recombinant 1 MG Vial IM PRN (13:12)
[2021-04-24] MEDS ORDERED: 50% Dextrose in Water 50 ML Syringe IVPUSH PRN (13:12)
[2021-04-24] MEDS: cefTRIAXone 1 GM in Sodium Chloride 0.9% 50 ML IV SCH (18:18)
[2021-04-24] MEDS: Enoxaparin 30 MG/0.3 ML Syringe SUBCUT SCH (20:20)
[2021-04-24] MEDS: Acetaminophen 325 MG Tab PO PRN (20:22)
[2021-04-24] MEDS ORDERED: atorvaSTATin 20 MG Tab PO SCH (21:00)
[2021-04-24] MEDS ORDERED: Aspirin 81 MG Tab.EC PO SCH (21:00)
[2021-04-25] MEDS: Albuterol/Ipratropium 3.0-0.5 MG/3 ML Neb Soln NEB SCH ×3 (03:39→10:43)
[2021-04-25 06:58] LABS: ANION GAP 13.4 mEq/L (7-13)
[2021-04-25] MEDS ORDERED: Ferrous Sulfate 325 MG Tab PO SCH (08:00)
[2021-04-25] MEDS: Gabapentin 300 MG Cap PO SCH (08:34)
[2021-04-25] MEDS: Azithromycin 250 MG Tab PO SCH (08:35)
[2021-04-25] MEDS: Metoprolol Succinate 50 MG Tab.ER PO SCH (08:35)
[2021-04-25] MEDS: Insulin Lispro 100 Units/ML 3 ML Vial SUBCUT SCH ×2 (08:36)
[2021-04-25 08:40] VITALS: BP 145/67
[2021-04-25] MEDS ORDERED: Multivitamins, Therapeutic with Minerals Tab PO SCH (09:00)
--- NOTE | 2021-04-25 09:53 | PCM.HP ---
H&P History of Present Illness - General Admit Problem/Dx: Admission Diagnosis/Problem Admission Diagnosis/Problem Pneumonia - History of Present Illness Initial Comments - Free Text/Narative: 1- Pneumonia? respiratory failure with hypoxia/ ? Pneumonia. Leukocytosis/ sepsis RSV pneumonia HYPERGLYCEMIA Uncontrolled dm ckd Hyponatremia Zithromax po Ceftriaxone Nebs DC IV Bicarbonate resume home insulin repeat labs in am DVT prophylaxis with heparin Generalized Pain Score (Numeric/FACES): 5 - Related Data Allergies/Adverse Reactions: Allergies Allergy/AdvReac Type Severity Reaction Status Date / Time Sulfa (Sulfonamide Allergy Hives Verified 04/24/21 17:26 Antibiotics) sulfacetamide Allergy Rash Verified 04/24/21 17:26 Home Medications: Home Meds Aspirin [Ecotrin EC] 81 mg PO BEDTIME 10/29/14 [History] Insulin Detemir [Levemir] 50 units SQ BID 10/29/14 [History] Gabapentin [Neurontin] 300 mg PO TID 07/23/17 [History] glipiZIDE [Glucotrol] 20 mg PO BEDTIME 12/03/18 [History] Ferrous Gluconate 324 mg PO DAILY 02/09/19 [History] Insulin Aspart [NovoLOG] 34 units SQ TIDMEALS 02/09/19 [History] Metoprolol Succinate [Toprol XL 50mg] 50 mg PO DAILY 02/09/19 [History] Multivitamin [Multivitamins] 1 cap PO DAILY 02/09/19 [History] atorvaSTATin Calcium [Atorvastatin Calcium] 80 mg PO BEDTIME 02/09/19 [History] Losartan [Cozaar] 50 mg PO DAILY 04/24/21 [History] Acetaminophen [Tylenol] 650 mg PO Q4H PRN tablet 04/25/21 [Rx] Albuterol/Ipratropium [DuoNeb 3.0-0.5 MG/3 ML] 3 ml NEB Q4HRRT neb 04/25/21 [Rx] Amoxicillin/Clavulanate K [Augmentin 875-125 MG] 1 tab PO BID #14 tablet 04/25/21 [Rx] Gabapentin [Neurontin] 300 mg PO TID cap 04/25/21 [Rx] Past Medical History - Past Health History Medical/Surgical History: Denies Medical/Surgical History HEENT History: Reports: Cataract, Impaired Vision Other HEENT History: WEARS GLASSES Cardiovascular History: Reports: High Cholesterol, Hypertension Respiratory History: Reports: Bronchitis, Recurrent Gastrointestinal History: Reports: GERD Genitourinary History: Reports: Chronic Renal Insuffiency, Diabetic Nephropathy 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: Musculoskeletal History: Reports: None Neurological History: Reports: None Psychiatric History: Reports: None Endocrine/Metabolic History: Reports: Diabetes, Type II Hematologic History: Reports: Anemia Immunologic History: Reports: None Oncologic (Cancer) History: Reports: None Dermatologic History: Reports: None - Infectious Disease History Infectious Disease History: Reports: Chicken Pox, Novel Coronavirus - Past Surgical History Head Surgeries/Procedures: Reports: None HEENT Surgical History: Reports: Detached Retina, Eye Surgery Respiratory Surgical History: Reports: None GI Surgical History: Reports: Cholecystectomy Female Surgical History: Reports: None Endocrine Surgical History: Reports: None Neurological Surgical History: Reports: None Musculoskeletal Surgical History: Reports: None Oncologic Surgical History: Reports: None Social & Family History - Family History Family Medical History: No Pertinent Family History HEENT: Reports: None Cardiac: Reports: None Respiratory: Reports: None OBGYN: Reports: Neurological: Reports: None Endocrine/Metabolic: Reports: Diabetes, type II - Tobacco Use Tobacco Use Status *Q: Unknown Ever Used Tobacco - Caffeine Use Caffeine Use: Reports: None - Recreational Drug Use Recreational Drug Use: No - Living Situation & Occupation Living situation: Reports: Single Occupation: Unemployed Exam - Vital Signs Vital Signs: Last Vital Signs Temp 98.1 F 04/25/21 08:00 Pulse 100 04/25/21 08:35 Resp 18 04/25/21 08:00 BP 145/67 H 04/25/21 08:35 Pulse Ox 100 04/25/21 08:00 Weight: 185 lb 4.8 oz - Patient Data Lab Results Last 24 hrs: Laboratory Results - last 24 hr 04/24/21 04/24/21 04/24/21 Range/Units 06:13 08:02 10:50 WBC (5.0-10.0) 10^3/uL RBC (4.2-5.4) 10^6/uL Hgb (12.0-16.0) g/dL Hct (37.0-47.0) % MCV (80-100) fL MCH (27.0-34.0) pg MCHC (33.0-35.0) g/dL Plt Count (150-450) 10^3/uL Neut % (Auto) (42.2-75.2) % Lymph % (Auto) (20.5-50.1) % [place] % (Auto) (2-8) % Eos % (Auto) (1.0-3.0) % Baso % (Auto) (0.0-1.0) % Sodium (136-145) mmol/L Potassium (3.5-5.1) mmol/L Chloride (98-107) mmol/L Carbon Dioxide (21-32) mmol/L Anion Gap (7-13) mEq/L BUN (7-18) mg/dL Creatinine (0.55-1.02) mg/dL Est Cr Clr Drug Dosing mL/min Estimated GFR (MDRD) Glucose (70-99) mg/dL POC Glucose 210 H 207 H 352 H (70-99) mg/dL Calcium (8.5-10.1) mg/dL 04/24/21 04/24/21 04/24/21 Range/Units 12:31 16:38 21:37 WBC (5.0-10.0) 10^3/uL RBC (4.2-5.4) 10^6/uL Hgb (12.0-16.0) g/dL Hct (37.0-47.0) % MCV (80-100) fL MCH (27.0-34.0) pg MCHC (33.0-35.0) g/dL Plt Count (150-450) 10^3/uL Neut % (Auto) (42.2-75.2) % Lymph % (Auto) (20.5-50.1) % [place] % (Auto) (2-8) % Eos % (Auto) (1.0-3.0) % Baso % (Auto) (0.0-1.0) % Sodium (136-145) mmol/L Potassium (3.5-5.1) mmol/L Chloride (98-107) mmol/L Carbon Dioxide (21-32) mmol/L Anion Gap (7-13) mEq/L BUN (7-18) mg/dL Creatinine (0.55-1.02) mg/dL Est Cr Clr Drug Dosing mL/min Estimated GFR (MDRD) Glucose (70-99) mg/dL POC Glucose 359 H 290 H 224 H (70-99) mg/dL Calcium (8.5-10.1) mg/dL 04/25/21 04/25/21 04/25/21 Range/Units 06:00 06:00 07:46 WBC 13.2 H (5.0-10.0) 10^3/uL RBC 3.04 L (4.2-5.4) 10^6/uL Hgb 9.1 L (12.0-16.0) g/dL Hct 28.3 L (37.0-47.0) % MCV 93.1 (80-100) fL MCH 29.9 (27.0-34.0) pg MCHC 32.2 L (33.0-35.0) g/dL Plt Count 407 (150-450) 10^3/uL Neut % (Auto) 83.0 H (42.2-75.2) % Lymph % (Auto) 11.3 L (20.5-50.1) % [place] % (Auto) 4.2 (2-8) % Eos % (Auto) 1.3 (1.0-3.0) % Baso % (Auto) 0.2 (0.0-1.0) % Sodium 141 (136-145) mmol/L Potassium 3.4 L (3.5-5.1) mmol/L Chloride 105 (98-107) mmol/L Carbon Dioxide 26 (21-32) mmol/L Anion Gap 13.4 H (7-13) mEq/L BUN 29 H (7-18) mg/dL Creatinine 2.84 H (0.55-1.02) mg/dL Est Cr Clr Drug Dosing 25.23 mL/min Estimated GFR (MDRD) 18 Glucose 318 H (70-99) mg/dL POC Glucose 291 H (70-99) mg/dL Calcium 7.9 L (8.5-10.1) mg/dL Result Diagrams: 04/25/21 06:00 04/25/21 06:00 Renzo Results Last 24 hrs: Microbiology 04/23/21 17:57 Aerobic Blood Culture - Preliminary Blood - Arm, Right NO GROWTH AFTER 1 DAY Anaerobic Blood Culture - Preliminary NO GROWTH AFTER 1 DAY 04/23/21 18:05 Aerobic Blood Culture - Preliminary Blood - Arm, Left NO GROWTH AFTER 1 DAY Anaerobic Blood Culture - Preliminary NO GROWTH AFTER 1 DAY Orders Last 24hrs: Active Orders 24 hr Category Date Time Status Ready for Discharge [RC] PER UNIT ROUTINE Care 04/25/21 09:48 Ordered BASIC METABOLIC PANEL,BMP [CHEM] AM Lab 04/26/21 05:11 Ordered BASIC METABOLIC PANEL,BMP [CHEM] AM Lab 04/27/21 05:11 Ordered BASIC METABOLIC PANEL,BMP [CHEM] AM Lab 04/28/21 05:11 Ordered BASIC METABOLIC PANEL,BMP [CHEM] AM Lab 04/29/21 05:11 Ordered BASIC METABOLIC PANEL,BMP [CHEM] AM Lab 04/30/21 05:11 Ordered CBC WITH AUTO DIFF [HEME] AM Lab 04/26/21 05:11 Ordered CBC WITH AUTO DIFF [HEME] AM Lab 04/27/21 05:11 Ordered CBC WITH AUTO DIFF [HEME] AM Lab 04/28/21 05:11 Ordered CBC WITH AUTO DIFF [HEME] AM Lab 04/29/21 05:11 Ordered CBC WITH AUTO DIFF [HEME] AM Lab 04/30/21 05:11 Ordered Aspirin [Halfprin] Med 04/24/21 21:00 Active 81 mg PO BEDTIME Dextrose 50% in Water Med 04/24/21 13:12 Active 50 ml IVPUSH Q15M PRN Ferrous Sulfate Med 04/25/21 08:00 Active 325 mg PO DAILY@0800 Glucagon,Human Recombinant [GlucaGen] Med 04/24/21 13:12 Active 1 mg IM Q15M PRN Insulin Lispro [HumaLOG] Med 04/24/21 13:30 Active See Protocol SUBCUT WITHMEALSANDBED Metoprolol Succinate [Toprol XL] Med 04/24/21 10:45 Active 50 mg PO DAILY Multivitamins/Minerals [Vitamins and Minerals] Med 04/25/21 09:00 Active 1 tab PO DAILY atorvaSTATin [Lipitor] Med 04/24/21 21:00 Active 80 mg PO BEDTIME cefTRIAXone [Rocephin] 1 gm Med 04/24/21 18:00 Active Sodium Chloride 0.9% [Normal Saline] 50 ml IV Q24H Medication Orders Acetaminophen (Acetaminophen 325 Mg Tab) 650 mg PO Q4H PRN PRN Reason: Pain (Mild 1-3)/fever Last Admin: 04/24/21 20:22 Dose: 650 mg Documented by: Admin: 04/23/21 22:17 Dose: 650 mg Documented by: LUANN Albuterol/Ipratropium (Albuterol/Ipratropium 3.0-0.5 Mg/3 Ml Neb Soln) 3 ml NEB Q4HRRT [facility] Last Admin: 04/25/21 07:52 Dose: 3 ml Documented by: Admin: 04/25/21 03:39 Dose: 3 ml Documented by: Admin: 04/24/21 23:57 Dose: 3 ml Documented by: Admin: 04/24/21 18:44 Dose: 3 ml Documented by: Admin: 04/24/21 15:57 Dose: Not Given Documented by: Admin: 04/24/21 11:26 Dose: 3 ml Documented by: Admin: 04/24/21 07:55 Dose: 3 ml Documented by: Admin: 04/24/21 04:00 Dose: 3 ml Documented by: Admin: 04/24/21 00:47 Dose: 3 ml Documented by: LUANN Aspirin (Aspirin 81 Mg Tab.Ec) 81 mg PO BEDTIME [facility] Last Admin: 04/24/21 20:23 Dose: 81 mg Documented by: LUANN Atorvastatin Calcium (Atorvastatin 20 Mg Tab) 80 mg PO BEDTIME [facility] Last Admin: 04/24/21 20:21 Dose: 80 mg Documented by: LUANN Azithromycin (Azithromycin 250 Mg Tab) 500 mg PO DAILY [facility] Last Admin: 04/25/21 08:35 Dose: 500 mg Documented by: [id number] Admin: 04/24/21 11:02 Dose: 500 mg Documented by: [id number] Admin: 04/23/21 21:52 Dose: 500 mg Documented by: LUANN Bisacodyl (Bisacodyl 5 Mg Tab) 5 mg PO DAILY PRN PRN Reason: Constipation Dextrose/Water (50% Dextrose In Water 50 Ml Syringe) 50 ml IVPUSH Q15M PRN PRN Reason: Hypoglycemia Docusate Sodium (Docusate Sodium 100 Mg Cap) 100 mg PO BID PRN PRN Reason: Constipation Enoxaparin Sodium (Enoxaparin 30 Mg/0.3 Ml Syringe) 30 mg SUBCUT BEDTIME [facility] Last Admin: 04/24/21 20:20 Dose: 30 mg Documented by: Admin: 04/23/21 21:53 Dose: 30 mg Documented by: LUANN Ferrous Sulfate (Ferrous Sulfate 325 Mg Tab) 325 mg PO DAILY@0800 [facility] Last Admin: 04/25/21 08:35 Dose: 325 mg Documented by: KONRAD Gabapentin (Gabapentin 300 Mg Cap) 300 mg PO TID [facility] Last Admin: 04/25/21 08:34 Dose: 300 mg Documented by: Admin: 04/24/21 20:22 Dose: 300 mg Documented by: Admin: 04/24/21 13:57 Dose: 300 mg Documented by: Admin: 04/24/21 11:02 Dose: 300 mg Documented by: Admin: 04/24/21 00:47 Dose: 300 mg Documented by: LUANN Glucagon (Glucagon,Human Recombinant 1 Mg Vial) 1 mg IM Q15M PRN PRN Reason: Hypoglycemia Ceftriaxone Sodium 1 gm/ (Sodium Chloride) 50 mls @ 100 mls/hr IV Q24H [facility] Last Admin: 04/24/21 18:18 Dose: 100 mls/hr Documented by: KONRAD Insulin Human Lispro (Insulin Lispro 100 Units/Ml 3 Ml Vial) 20 unit SUBCUT TIDMEALS [facility] Last Admin: 04/25/21 08:36 Dose: 20 units Documented by: Admin: 04/24/21 17:24 Dose: 20 units Documented by: Admin: 04/24/21 13:56 Dose: 20 units Documented by: Admin: 04/24/21 08:00 Dose: 20 units Documented by: KONRAD Insulin Human Lispro (Insulin Lispro 100 Units/Ml 3 Ml Vial) 0 unit SUBCUT WITHMEALSANDBED [facility]; Protocol Last Admin: 04/25/21 08:36 Dose: 3 units Documented by: [id number] Admin: 04/24/21 21:45 Dose: 2 units Documented by: Admin: 04/24/21 17:24 Dose: 3 units Documented by: Admin: 04/24/21 13:56 Dose: 5 units Documented by: KONRAD Metoprolol Succinate (Metoprolol Succinate 50 Mg Tab.Er) 50 mg PO DAILY [facility] Last Admin: 04/25/21 08:35 Dose: 50 mg Documented by: Admin: 04/24/21 12:45 Dose: 50 mg Documented by: LINDY Multivitamins/Minerals (Multivitamins, Therapeutic With Minerals Tab) 1 tab PO DAILY [facility] Last Admin: 04/25/21 08:35 Dose: 1 tab Documented by: [id number] Ondansetron HCl (Ondansetron 4 Mg/2 Ml Sdv) 4 mg IVPUSH Q6H PRN PRN Reason: Nausea/Vomiting Sodium Chloride (Sodium Chloride 0.9% 10 Ml Syringe) 10 ml FLUSH ASDIRECTED PRN PRN Reason: Keep Vein Open Last Admin: 04/23/21 18:12 Dose: 10 ml Documented by: FREDA Assessment/Plan Comment:: 1- Pneumonia? respiratory failure with hypoxia/ ? Pneumonia. Leukocytosis/ sepsis RSV pneumonia HYPERGLYCEMIA Uncontrolled dm ckd Hyponatremia Zithromax po Ceftriaxone Nebs DC IV Bicarbonate resume home insulin repeat labs in am DVT prophylaxis with heparin
--- NOTE | 2021-04-25 10:07 | PCM.DCSUM1 ---
Discharge Summary - Hospital Course Free Text/Narrative:: Patient presents to ED with complaint of shortness of breath worsening over the past 3 days. Patient reports onset of cough, body aches, headache, fever and chills with loss of appetite and severe fatigue 10 days ago. Patient states that she had COVID infection approximately 1 year ago without complications. She has not had COVID vaccine. She has history of diabetes, obesity, hypokalemia, and chronic kidney disease. She claims that she did not use her insulin for the past 3 days because of vomiting. No D/ abd pain Her WBC in ER was 20.8, BS: 517, Na 125. CT chest showed possible viral pneumonia or bronchitis. COVID swab was neg. but positive for RSV. During her stay she was treated for the following 1- Sepsis/Leukocytosis/ Pneumonia? respiratory failure with hypoxia/ RSV pneumonia: O2, Nebs and Zithromax 500 mg PoX 3 days and Ceftriaxone. Her symptoms markedly improved and she is off O2. To continue with Augmentin and Nebs at home. 2- HYPERGLYCEMIA / Uncontrolled dm: She was not taking her insulin for 3 days prior admission. Her Home medications resumed and she was advised to f/u with her PCP for further managment. Hyponatremia: resolved with IVF. ckd stage 3: Hold Losartan and Bumex for now due acute illness and till seen by her doctor. Anemia: ? of CKD. TO maintain her follow up with her dial mounter. - Discharge Data Discharge Date: 04/25/21 Discharge Disposition: Home, Self-Care 01 Condition: Stable - Referral to Home Health Primary Care Physician: Jose [facility] - Patient Summary/Data Consults: Consultations 04/23/21 20:38 Respiratory Care Assess and Treatment [CONS] Routine 04/23/21 20:49 Consult to Respiratory Therapy [Respiratory Care Assess and Treatment] [CONS] Routine Recommended Follow-up Testing/Procedures: Follow up with your doctor in one week. Follow up with your dial mounter. Return to ER if not better or any change. - Patient Instructions Diet: Diabetic Diet Fluid Restriction: 2000 mL Activity: As Tolerated - Discharge Plan *PRESCRIPTION DRUG MONITORING PROGRAM REVIEWED*: No *COPY OF PRESCRIPTION DRUG MONITORING REPORT IN PATIENT KIMMY: No Prescriptions/Med Rec: Amoxicillin/Clavulanate K [Augmentin 875-125 MG] 1 tab PO BID #14 tablet Home Medications: Home Meds Aspirin [Ecotrin EC] 81 mg PO BEDTIME 10/29/14 [History] Insulin Detemir [Levemir] 50 units SQ BID 10/29/14 [History] Gabapentin [Neurontin] 300 mg PO TID 07/23/17 [History] glipiZIDE [Glucotrol] 20 mg PO BEDTIME 12/03/18 [History] Ferrous Gluconate 324 mg PO DAILY 02/09/19 [History] Insulin Aspart [NovoLOG] 34 units SQ TIDMEALS 02/09/19 [History] Metoprolol Succinate [Toprol XL 50mg] 50 mg PO DAILY 02/09/19 [History] Multivitamin [Multivitamins] 1 cap PO DAILY 02/09/19 [History] atorvaSTATin Calcium [Atorvastatin Calcium] 80 mg PO BEDTIME 02/09/19 [History] Losartan [Cozaar] 50 mg PO DAILY 04/24/21 [History] Acetaminophen [Tylenol] 650 mg PO Q4H PRN tablet 04/25/21 [Rx] Albuterol/Ipratropium [DuoNeb 3.0-0.5 MG/3 ML] 3 ml NEB Q4HRRT neb 04/25/21 [Rx] Amoxicillin/Clavulanate K [Augmentin 875-125 MG] 1 tab PO BID #14 tablet 04/25/21 [Rx] Gabapentin [Neurontin] 300 mg PO TID cap 04/25/21 [Rx] Oxygen Therapy Mode: Room Air Forms: ED Department Discharge - Discharge Summary/Plan Comment DC Time >30 min.: Yes Total # of Minutes for Discharge Time: 35 min - General Info Date of Service: 04/25/21 Functional Status: Reports: Tolerating Diet - Review of Systems General: Denies: Fever Pulmonary: Denies: Shortness of Breath, Cough Cardiovascular: Denies: Chest Pain Gastrointestinal: Denies: Abdominal Pain, Vomiting Genitourinary: Denies: Dysuria Neurological: Denies: Confusion Psychiatric: Denies: Confusion - Patient Data Vitals - Most Recent: Last Vital Signs Temp 98.1 F 04/25/21 08:00 Pulse 100 04/25/21 08:35 Resp 18 04/25/21 08:00 BP 145/67 H 04/25/21 08:35 Pulse Ox 100 04/25/21 08:00 Weight - Most Recent: 185 lb 4.8 oz I&O - Last 24 hours: Intake & Output 04/24/21 04/25/21 04/25/21 22:59 06:59 14:59 Intake Total 1005 300 240 Balance 1005 300 240 Lab Results - Last 24 hrs: Laboratory Results - last 24 hr 04/24/21 04/24/21 04/24/21 Range/Units 06:13 08:02 10:50 WBC (5.0-10.0) 10^3/uL RBC (4.2-5.4) 10^6/uL Hgb (12.0-16.0) g/dL Hct (37.0-47.0) % MCV (80-100) fL MCH (27.0-34.0) pg MCHC (33.0-35.0) g/dL Plt Count (150-450) 10^3/uL Neut % (Auto) (42.2-75.2) % Lymph % (Auto) (20.5-50.1) % [place] % (Auto) (2-8) % Eos % (Auto) (1.0-3.0) % Baso % (Auto) (0.0-1.0) % Sodium (136-145) mmol/L Potassium (3.5-5.1) mmol/L Chloride (98-107) mmol/L Carbon Dioxide (21-32) mmol/L Anion Gap (7-13) mEq/L BUN (7-18) mg/dL Creatinine (0.55-1.02) mg/dL Est Cr Clr Drug Dosing mL/min Estimated GFR (MDRD) Glucose (70-99) mg/dL POC Glucose 210 H 207 H 352 H (70-99) mg/dL Calcium (8.5-10.1) mg/dL 04/24/21 04/24/21 04/24/21 Range/Units 12:31 16:38 21:37 WBC (5.0-10.0) 10^3/uL RBC (4.2-5.4) 10^6/uL Hgb (12.0-16.0) g/dL Hct (37.0-47.0) % MCV (80-100) fL MCH (27.0-34.0) pg MCHC (33.0-35.0) g/dL Plt Count (150-450) 10^3/uL Neut % (Auto) (42.2-75.2) % Lymph % (Auto) (20.5-50.1) % [place] % (Auto) (2-8) % Eos % (Auto) (1.0-3.0) % Baso % (Auto) (0.0-1.0) % Sodium (136-145) mmol/L Potassium (3.5-5.1) mmol/L Chloride (98-107) mmol/L Carbon Dioxide (21-32) mmol/L Anion Gap (7-13) mEq/L BUN (7-18) mg/dL Creatinine (0.55-1.02) mg/dL Est Cr Clr Drug Dosing mL/min Estimated GFR (MDRD) Glucose (70-99) mg/dL POC Glucose 359 H 290 H 224 H (70-99) mg/dL Calcium (8.5-10.1) mg/dL 04/25/21 04/25/21 04/25/21 Range/Units 06:00 06:00 07:46 WBC 13.2 H (5.0-10.0) 10^3/uL RBC 3.04 L (4.2-5.4) 10^6/uL Hgb 9.1 L (12.0-16.0) g/dL Hct 28.3 L (37.0-47.0) % MCV 93.1 (80-100) fL MCH 29.9 (27.0-34.0) pg MCHC 32.2 L (33.0-35.0) g/dL Plt Count 407 (150-450) 10^3/uL Neut % (Auto) 83.0 H (42.2-75.2) % Lymph % (Auto) 11.3 L (20.5-50.1) % [place] % (Auto) 4.2 (2-8) % Eos % (Auto) 1.3 (1.0-3.0) % Baso % (Auto) 0.2 (0.0-1.0) % Sodium 141 (136-145) mmol/L Potassium 3.4 L (3.5-5.1) mmol/L Chloride 105 (98-107) mmol/L Carbon Dioxide 26 (21-32) mmol/L Anion Gap 13.4 H (7-13) mEq/L BUN 29 H (7-18) mg/dL Creatinine 2.84 H (0.55-1.02) mg/dL Est Cr Clr Drug Dosing 25.23 mL/min Estimated GFR (MDRD) 18 Glucose 318 H (70-99) mg/dL POC Glucose 291 H (70-99) mg/dL Calcium 7.9 L (8.5-10.1) mg/dL [facility] Results - Last 24 hrs: Microbiology 04/23/21 17:57 Aerobic Blood Culture - Preliminary Blood - Arm, Right NO GROWTH AFTER 1 DAY Anaerobic Blood Culture - Preliminary NO GROWTH AFTER 1 DAY 04/23/21 18:05 Aerobic Blood Culture - Preliminary Blood - Arm, Left NO GROWTH AFTER 1 DAY Anaerobic Blood Culture - Preliminary NO GROWTH AFTER 1 DAY Med Orders - Current: Current Medications Acetaminophen (Acetaminophen 325 Mg Tab) 650 mg PO Q4H PRN PRN Reason: Pain (Mild 1-3)/fever Last Admin: 04/24/21 20:22 Dose: 650 mg Documented by: Albuterol/Ipratropium (Albuterol/Ipratropium 3.0-0.5 Mg/3 Ml Neb Soln) 3 ml NEB Q4HRRT [facility] Last Admin: 04/25/21 07:52 Dose: 3 ml Documented by: Aspirin (Aspirin 81 Mg Tab.Ec) 81 mg PO BEDTIME [facility] Last Admin: 04/24/21 20:23 Dose: 81 mg Documented by: Atorvastatin Calcium (Atorvastatin 20 Mg Tab) 80 mg PO BEDTIME [facility] Last Admin: 04/24/21 20:21 Dose: 80 mg Documented by: Azithromycin (Azithromycin 250 Mg Tab) 500 mg PO DAILY [facility] Last Admin: 04/25/21 08:35 Dose: 500 mg Documented by: Bisacodyl (Bisacodyl 5 Mg Tab) 5 mg PO DAILY PRN PRN Reason: Constipation Dextrose/Water (50% Dextrose In Water 50 Ml Syringe) 50 ml IVPUSH Q15M PRN PRN Reason: Hypoglycemia Docusate Sodium (Docusate Sodium 100 Mg Cap) 100 mg PO BID PRN PRN Reason: Constipation Enoxaparin Sodium (Enoxaparin 30 Mg/0.3 Ml Syringe) 30 mg SUBCUT BEDTIME [facility] Last Admin: 04/24/21 20:20 Dose: 30 mg Documented by: Ferrous Sulfate (Ferrous Sulfate 325 Mg Tab) 325 mg PO DAILY@0800 [facility] Last Admin: 04/25/21 08:35 Dose: 325 mg Documented by: Gabapentin (Gabapentin 300 Mg Cap) 300 mg PO TID [facility] Last Admin: 04/25/21 08:34 Dose: 300 mg Documented by: Glucagon (Glucagon,Human Recombinant 1 Mg Vial) 1 mg IM Q15M PRN PRN Reason: Hypoglycemia Ceftriaxone Sodium 1 gm/ (Sodium Chloride) 50 mls @ 100 mls/hr IV Q24H [facility] Last Admin: 04/24/21 18:18 Dose: 100 mls/hr Documented by: Insulin Human Lispro (Insulin Lispro 100 Units/Ml 3 Ml Vial) 20 unit SUBCUT TIDMEALS [facility] Last Admin: 04/25/21 08:36 Dose: 20 units Documented by: Insulin Human Lispro (Insulin Lispro 100 Units/Ml 3 Ml Vial) 0 unit SUBCUT WITHMEALSANDBED [facility]; Protocol Last Admin: 04/25/21 08:36 Dose: 3 units Documented by: Metoprolol Succinate (Metoprolol Succinate 50 Mg Tab.Er) 50 mg PO DAILY [facility] Last Admin: 04/25/21 08:35 Dose: 50 mg Documented by: Multivitamins/Minerals (Multivitamins, Therapeutic With Minerals Tab) 1 tab PO DAILY [facility] Last Admin: 04/25/21 08:35 Dose: 1 tab Documented by: Ondansetron HCl (Ondansetron 4 Mg/2 Ml Sdv) 4 mg IVPUSH Q6H PRN PRN Reason: Nausea/Vomiting Sodium Chloride (Sodium Chloride 0.9% 10 Ml Syringe) 10 ml FLUSH ASDIRECTED PRN PRN Reason: Keep Vein Open Last Admin: 04/23/21 18:12 Dose: 10 ml Documented by: Discontinued Medications Albuterol/Ipratropium (Albuterol/Ipratropium 3.0-0.5 Mg/3 Ml Neb Soln) 3 ml NEB ONETIME ONE Stop: 04/23/21 17:51 Last Admin: 04/23/21 18:02 Dose: 3 ml Documented by: Azithromycin (Azithromycin 250 Mg Tab) 250 mg PO DAILY ONE Stop: 04/23/21 20:45 Last Admin: 04/23/21 21:53 Dose: Not Given Documented by: Dextrose/Water (50% Dextrose In Water 50 Ml Syringe) 50 ml IVPUSH Q15M PRN PRN Reason: Hypoglycemia Diphtheria/Tetanus/Acell Pertussis (Diphtheria,Pertussis(Acell),Tetanus Vaccine 0.5 Ml Syringe) 0.5 ml IM .ONCE ONE Stop: 04/24/21 11:01 Glucagon (Glucagon,Human Recombinant 1 Mg Vial) 1 mg IM Q15M PRN PRN Reason: Hypoglycemia Ceftriaxone Sodium 2 gm/ (Sodium Chloride) 100 mls @ 200 mls/hr IV ONETIME ONE Stop: 04/23/21 19:09 Last Admin: 04/23/21 19:14 Dose: 200 mls/hr Documented by: Azithromycin 500 mg/ Sodium (Chloride) 250 mls @ 250 mls/hr IV ONETIME ONE Stop: 04/23/21 19:39 Last Admin: 04/23/21 20:22 Dose: 250 mls/hr Documented by: Sodium Chloride (Normal Saline) 1,000 mls @ 999 mls/hr IV .BOLUS ONE Stop: 04/23/21 19:46 Last Admin: 04/23/21 19:04 Dose: 999 mls/hr Documented by: Insulin Regular in 0.9 % NACL (Myxredlin In Ns 100 Unit/100 Ml) 100 unit in 100 mls @ 9.072 mls/hr IV TITRATE [facility]; Protocol Last Admin: 04/23/21 19:40 Dose: 0.1 units/kg/hr, 9.072 mls/hr Documented by: Ceftriaxone Sodium 2 gm/ (Sodium Chloride) 100 mls @ 200 mls/hr IV ONETIME ONE Stop: 04/23/21 21:15 Last Admin: 04/23/21 21:53 Dose: Not Given Documented by: Sodium Bicarbonate 100 meq/ (Dextrose/Water) 1,100 mls @ 100 mls/hr IV ONETIME ONE Stop: 04/24/21 07:46 Last Infusion: 04/24/21 10:25 Dose: Infused Documented by: Insulin Glargine (Insulin Glarg,Human.Rec.Analog 100 Unit/Ml) 50 unit SUBCUT BID [facility] Last Admin: 04/24/21 22:00 Dose: 50 units Documented by: Insulin Human Regular (Insulin Regular, Human 100 Units/Ml 3 Ml Vial) 10 unit IV ONETIME ONE Stop: 04/23/21 18:47 Last Admin: 04/23/21 19:05 Dose: 10 units Documented by: Potassium Chloride (Potassium Chloride 10 Meq Tab.Er) 40 meq PO ONETIME ONE Stop: 04/24/21 10:41 Last Admin: 04/24/21 11:31 Dose: 40 meq Documented by: Promethazine HCl/Codeine (Codeine/Promethazine 10-6.25 Mg/5 Ml Syrup 5 Ml Ud Cup) 10 ml PO ONETIME ONE Stop: 04/23/21 18:44 Last Admin: 04/23/21 19:02 Dose: 10 ml Documented by: - Exam Quality Assessment: Denies: Supplemental Oxygen General: Reports: Alert, Oriented, No Acute Distress HEENT: Reports: EOMI Neck: Reports: Supple GI/Abdominal Exam: Non-Tender Rectal (Female) Exam: Deferred Extremities: Normal Inspection Skin: Reports: Warm, Dry Neurological: Reports: No New Focal Deficit Psy/Mental Status: Reports: Alert, Normal Affect
[2021-04-25] MEDS ORDERED: Glucagon,Human Recombinant 1 MG Vial IM PRN (10:43)
[2021-04-25] MEDS ORDERED: 50% Dextrose in Water 50 ML Syringe IVPUSH PRN (10:43)
[2021-04-25] MEDS ORDERED: Insulin Glarg,Human.Rec.Analog 100 Unit/ML SUBCUT SCH (10:45)
[2021-04-25] MEDS ORDERED: Diphtheria,Pertussis(Acell),Tetanus Vaccine 0.5 ML Syringe IM ONE (10:45)
[2021-04-25 13:30] VITALS: PULSE 84
[2021-04-25] MEDS: cefTRIAXone 1 GM in Sodium Chloride 0.9% 50 ML IV SCH (19:37)
== END 2021-04-25 11:34 | disposition home or self-care (01) | DRG 871 ==
LOC: DL.ED 17:19 → DL.MS 19:45
PROVIDERS: ADMIT Internal Medicine; ATTEND Internal Medicine
DX: A41.9 Sepsis, unspecified organism (principal); J12.1 Respiratory syncytial virus pneumonia; J96.90 Respiratory failure, unspecified, unspecified whether with hypoxia or hypercapnia; E87.1 Hypo-osmolality and hyponatremia; E66.9 Obesity, unspecified; E87.6 Hypokalemia; J18.9 Pneumonia, unspecified organism; N18.30 Chronic kidney disease, stage 3 unspecified; D63.1 Anemia in chronic kidney disease; N18.9 Chronic kidney disease, unspecified; Z79.84 Long term (current) use of oral hypoglycemic drugs; E11.65 Type 2 diabetes mellitus with hyperglycemia; H54.7 Unspecified visual loss; E78.00 Pure hypercholesterolemia, unspecified; K21.9 Gastro-esophageal reflux disease without esophagitis; E11.22 Type 2 diabetes mellitus with diabetic chronic kidney disease; Z86.16 Personal history of COVID-19; Z86.19 Personal history of other infectious and parasitic diseases; Z98.890 Other specified postprocedural states; Z90.49 Acquired absence of other specified parts of digestive tract; I12.9 Hypertensive chronic kidney disease with stage 1 through stage 4 chronic kidney disease, or unspecified chronic kidney disease; E11.21 Type 2 diabetes mellitus with diabetic nephropathy; D64.9 Anemia, unspecified; Z88.2 Allergy status to sulfonamides; Z88.8 Allergy status to other drugs, medicaments and biological substances; Z79.82 Long term (current) use of aspirin; Z79.4 Long term (current) use of insulin; Z79.899 Other long term (current) drug therapy; Z20.822 Contact with and (suspected) exposure to COVID-19
CPT/HCPCS: 0241U; 36415; 36600; 71250; 80048; 80053; 81001; 82009; 82728; 82803; 82947; 83605; 83615; 83735; 83880; 84484; 84703; 85025; 85379; 85730; 86140; 87040; 87635; 94640; 96365; 99285; A9270-GY; J0456; J0696; J1650; J1815-GY; J7030; J7050; J7060; J7620-GY; U0002

== ENCOUNTER 2021-08-28 17:33 | Emergency (ER) | payer MEDICAID, OTHER ==
[2021-08-28] MEDS ORDERED: Sodium Chloride 0.9% 1,000 ML IV ONE ×3 (17:44→20:06)
[2021-08-28 18:23] LABS: CHLORIDE,CL 93 mmol/L (98-107); SODIUM,NA 126 mmol/L (136-145)
[2021-08-28] MEDS ORDERED: Insulin Regular, Human 100 Units/ML 3 ML Vial IV ONE ×2 (18:33→20:07)
[2021-08-28] MEDS ORDERED: 50% Dextrose in Water 50 ML Syringe IVPUSH PRN ×2 (18:33→20:07)
[2021-08-28] MEDS ORDERED: Glucagon,Human Recombinant 1 MG Vial IM PRN ×2 (18:33→20:07)
[2021-08-28 19:11] VITALS: BP 136/69; PULSE 90
[2021-08-28] MEDS ORDERED: Acetaminophen 500 MG Tab PO ONE (19:19)
[2021-08-28 20:07] LABS: AMPHETAMINES,URINE NEGATIVE (NEGATIVE); BARBITURATES,URINE NEGATIVE (NEGATIVE); BENZODIAZEPINE,URINE NEGATIVE (NEGATIVE); MDMA (ECSTASY), URINE NEGATIVE (NEGATIVE); METHADONE,URINE NEGATIVE (NEGATIVE); METHAMPHETAMINES,URINE NEGATIVE (NEGATIVE); OPIATES,URINE NEGATIVE (NEGATIVE); OXYCODONE,URINE NEGATIVE (NEGATIVE); PHENCYCLIDINE,URINE NEGATIVE (NEGATIVE); TCA,URINE NEGATIVE (NEGATIVE)
== END 2021-08-28 21:35 | disposition home or self-care (01) ==
LOC: DL.ED 17:33
DX: E11.65 Type 2 diabetes mellitus with hyperglycemia (principal); E78.00 Pure hypercholesterolemia, unspecified; I12.9 Hypertensive chronic kidney disease with stage 1 through stage 4 chronic kidney disease, or unspecified chronic kidney disease; E11.22 Type 2 diabetes mellitus with diabetic chronic kidney disease; N18.9 Chronic kidney disease, unspecified; K21.9 Gastro-esophageal reflux disease without esophagitis; E11.21 Type 2 diabetes mellitus with diabetic nephropathy; Z88.2 Allergy status to sulfonamides; Z79.82 Long term (current) use of aspirin; Z79.4 Long term (current) use of insulin; Z79.899 Other long term (current) drug therapy
CPT/HCPCS: 36415; 80053; 80305; 80307; 81001; 81025; 82150; 82947; 83605; 83690; 83735; 84443; 84484; 85025; 86140; 93005; 99285; A9270; J1815; J7030

== ENCOUNTER 2021-09-10 15:59 | Emergency (ER) | payer MEDICAID ==
[2021-09-10 16:03] VITALS: BP 130/81; PULSE 78
[2021-09-10 17:08] LABS: ANION GAP 12.3 mEq/L (7-13)
[2021-09-10 17:34] LABS: CORONAVIRUS COVID-19 NAA NEGATIVE (NEGATIVE)
[2021-09-10 18:00] LABS: HEMOGLOBIN A1C > 14.0 % (<5.7)
[2021-09-10] MEDS ORDERED: Sodium Chloride 0.9% 1,000 ML IV SCH (18:00)
== END 2021-09-10 18:49 | disposition home or self-care (01) ==
LOC: DL.ED 15:59
DX: E11.65 Type 2 diabetes mellitus with hyperglycemia (principal); E86.0 Dehydration; E78.00 Pure hypercholesterolemia, unspecified; E11.21 Type 2 diabetes mellitus with diabetic nephropathy; E11.22 Type 2 diabetes mellitus with diabetic chronic kidney disease; I12.9 Hypertensive chronic kidney disease with stage 1 through stage 4 chronic kidney disease, or unspecified chronic kidney disease; N18.9 Chronic kidney disease, unspecified; K21.9 Gastro-esophageal reflux disease without esophagitis; Z88.2 Allergy status to sulfonamides; Z88.8 Allergy status to other drugs, medicaments and biological substances; Z79.4 Long term (current) use of insulin; Z79.899 Other long term (current) drug therapy; Z20.822 Contact with and (suspected) exposure to COVID-19
CPT/HCPCS: 0240U; 36415; 80053; 81001; 82947; 83036; 83735; 85025; 99285; J7030

== ENCOUNTER 2021-12-29 21:25 | Emergency (ER) | payer MEDICAID ==
[2021-12-29 22:14] VITALS: BP 143/76; PULSE 86
== END 2021-12-30 01:04 | disposition left against medical advice (07) ==
LOC: DL.ED 21:25
DX: R53.1 Weakness (principal); Z53.21 Procedure and treatment not carried out due to patient leaving prior to being seen by health care provider

== ENCOUNTER 2022-01-11 23:57 | Emergency (ER) | payer MEDICAID ==
[2022-01-11 23:45] VITALS: BP 183/86; PULSE 91
[2022-01-12 01:38] LABS: CHLORIDE,CL 97 mmol/L (98-107); SODIUM,NA 131 mmol/L (136-145)
[2022-01-12 01:44] LABS: ESTIMATED GFR 17 mL/min (>=60)
[2022-01-12] MEDS ORDERED: Sodium Chloride 0.9% 1,000 ML IV ONE ×2 (01:47→03:17)
[2022-01-12] MEDS ORDERED: 50% Dextrose in Water 50 ML Syringe IVPUSH PRN (01:48)
[2022-01-12] MEDS ORDERED: Glucagon,Human Recombinant 1 MG Vial IM PRN (01:48)
[2022-01-12] MEDS ORDERED: Insulin Regular, Human 100 Units/ML 3 ML Vial IV ONE (01:48)
[2022-01-12 05:36] LABS: ANION GAP 10.7 mEq/L (7-13); CHLORIDE,CL 106 mmol/L (98-107); SODIUM,NA 138 mmol/L (136-145)
[2022-01-12 05:37] LABS: ESTIMATED GFR 21 mL/min (>=60)
== END 2022-01-12 08:09 | disposition home or self-care (01) ==
LOC: DL.ED 23:57
DX: E11.65 Type 2 diabetes mellitus with hyperglycemia (principal); E11.21 Type 2 diabetes mellitus with diabetic nephropathy; E11.22 Type 2 diabetes mellitus with diabetic chronic kidney disease; I12.9 Hypertensive chronic kidney disease with stage 1 through stage 4 chronic kidney disease, or unspecified chronic kidney disease; N18.9 Chronic kidney disease, unspecified; E78.00 Pure hypercholesterolemia, unspecified; K21.9 Gastro-esophageal reflux disease without esophagitis; Z88.2 Allergy status to sulfonamides; Z88.8 Allergy status to other drugs, medicaments and biological substances; Z79.82 Long term (current) use of aspirin; Z79.4 Long term (current) use of insulin; Z79.899 Other long term (current) drug therapy; Z86.16 Personal history of COVID-19
CPT/HCPCS: 36415; 74176; 80048; 80053; 80307; 81001; 81025; 82009; 82947; 83735; 85025; 96360; 96361; 99283; 99285-25; J1815-GY; J7030

== ENCOUNTER 2022-03-19 19:56 | Emergency (ER) | payer MEDICAID ==
[2022-03-19 20:21] VITALS: BP 160/89; PULSE 103
[2022-03-19 20:54] LABS: ANION GAP 18.1 mEq/L (7-13); CHLORIDE,CL 92 mmol/L (98-107)
[2022-03-19 20:55] LABS: ACETAMINOPHEN 0 ug/mL (10-30 (Therapeutic)); ESTIMATED GFR 17 mL/min (>=60)
[2022-03-19 20:56] LABS: SODIUM,NA 127 mmol/L (136-145)
[2022-03-19] MEDS ORDERED: Sodium Chloride 0.9% 1,000 ML IV ONE (20:57)
[2022-03-19] MEDS ORDERED: Potassium Chloride 10 MEQ Tab.ER PO ONE (20:57)
[2022-03-19 21:02] LABS: CORONAVIRUS COVID-19 NAA NEGATIVE (NEGATIVE)
[2022-03-19] MEDS ORDERED: Potassium Chloride 20 MEQ in Premix Bag 1 BAG IV ONE (21:09)
[2022-03-19] MEDS ORDERED: Potassium Chloride Riders 0 ML ONE (21:11)
[2022-03-19 23:12] LABS: AMPHETAMINES,URINE NEGATIVE (NEGATIVE); BARBITURATES,URINE NEGATIVE (NEGATIVE); BENZODIAZEPINE,URINE NEGATIVE (NEGATIVE); MDMA (ECSTASY), URINE NEGATIVE (NEGATIVE); METHADONE,URINE NEGATIVE (NEGATIVE); METHAMPHETAMINES,URINE NEGATIVE (NEGATIVE); OPIATES,URINE NEGATIVE (NEGATIVE); OXYCODONE,URINE NEGATIVE (NEGATIVE); PHENCYCLIDINE,URINE NEGATIVE (NEGATIVE); TCA,URINE NEGATIVE (NEGATIVE)
[2022-03-20] MEDS ORDERED: Potassium Chloride 10% 20 MEQ/15 ML Soln 15 ML UD Cup PO ONE (20:59)
== END 2022-03-19 23:46 | disposition home or self-care (01) ==
LOC: DL.ED 19:56
DX: R53.1 Weakness (principal); E86.0 Dehydration; E87.1 Hypo-osmolality and hyponatremia; E87.6 Hypokalemia; E78.00 Pure hypercholesterolemia, unspecified; E11.21 Type 2 diabetes mellitus with diabetic nephropathy; E11.22 Type 2 diabetes mellitus with diabetic chronic kidney disease; I12.9 Hypertensive chronic kidney disease with stage 1 through stage 4 chronic kidney disease, or unspecified chronic kidney disease; N18.9 Chronic kidney disease, unspecified; Z88.2 Allergy status to sulfonamides; Z88.8 Allergy status to other drugs, medicaments and biological substances; Z79.82 Long term (current) use of aspirin; Z79.4 Long term (current) use of insulin; Z79.899 Other long term (current) drug therapy; Z20.822 Contact with and (suspected) exposure to COVID-19
CPT/HCPCS: 0240U; 36415; 73562; 80053; 80143; 80179; 80305; 80307; 82140; 82150; 83605; 83690; 83735; 84484; 85025; 86788; 93005; 96365; 96366; 99285; A9270; J3480; J7030; 93010; 99284

== ENCOUNTER 2022-05-05 11:59 | Emergency (ER) | payer MEDICAID ==
[2022-05-05] MEDS ORDERED: Insulin Regular, Human 100 Units/ML 3 ML Vial IV ONE (12:00)
[2022-05-05] MEDS ORDERED: fentaNYL 100 MCG/2 ML SDV IV ONE (13:55)
== END 2022-05-05 16:52 | disposition home or self-care (01) ==
LOC: DL.ED 11:59
DX: L02.31 Cutaneous abscess of buttock (principal); L03.317 Cellulitis of buttock; I10 Essential (primary) hypertension; E11.9 Type 2 diabetes mellitus without complications
CPT/HCPCS: 96361; 96374; 99283-25

== ENCOUNTER 2022-09-30 15:22 | Inpatient (IN) | payer MEDICAID ==
[2022-09-30] MEDS ORDERED: HYDROmorphone 1 MG/ML Syringe IVPUSH ONE (16:51)
[2022-09-30] MEDS ORDERED: Ondansetron 4 MG/2 ML SDV IVPUSH ONE (16:51)
[2022-09-30 16:52] LABS: BARBITURATES,URINE NEGATIVE (NEGATIVE); MDMA (ECSTASY), URINE NEGATIVE (NEGATIVE); METHADONE,URINE NEGATIVE (NEGATIVE); METHAMPHETAMINES,URINE NEGATIVE (NEGATIVE); OPIATES,URINE NEGATIVE (NEGATIVE); TCA,URINE NEGATIVE (NEGATIVE)
[2022-09-30 16:53] LABS: AMPHETAMINES,URINE NEGATIVE (NEGATIVE); BENZODIAZEPINE,URINE NEGATIVE (NEGATIVE); OXYCODONE,URINE NEGATIVE (NEGATIVE); PHENCYCLIDINE,URINE NEGATIVE (NEGATIVE)
[2022-09-30 16:59] LABS: ANION GAP 17.4 mEq/L (7-13); CHLORIDE,CL 104 mmol/L (98-107); SODIUM,NA 135 mmol/L (136-145)
[2022-09-30 17:00] LABS: ESTIMATED GFR 12 mL/min (>=60)
[2022-09-30 17:03] LABS: PTT,PARTIAL THROMBOPLSTIN TIME 25.8 SEC (22.0-34.0)
[2022-09-30] MEDS ORDERED: Magnesium Sulfate/Water 2 GM in Premix Bag 1 BAG IV ONE (17:31)
[2022-09-30] MEDS ORDERED: Doxycycline Monohydrate 100 MG Cap ONE (18:55)
[2022-09-30] MEDS ORDERED: Cephalexin 500 MG Cap ONE (18:55)
[2022-09-30] MEDS ORDERED: Docusate Sodium 100 MG Cap PO PRN (20:04)
[2022-09-30] MEDS ORDERED: Glucagon,Human Recombinant 1 MG Vial IM PRN (20:16)
[2022-09-30] MEDS ORDERED: 50% Dextrose in Water 50 ML Syringe IVPUSH PRN (20:16)
[2022-09-30] MEDS ORDERED: Enoxaparin 30 MG/0.3 ML Syringe SUBCUT SCH (21:00)
[2022-09-30] MEDS: metroNIDAZOLE/Normal Saline 500 MG in Premix Bag 100 BAG IV SCH (21:00)
[2022-09-30] MEDS: Sodium Chloride 0.9% 1,000 ML IV SCH (21:00)
[2022-09-30] MEDS: Timolol Maleate 0.5% Ophth Soln 5 ML Bottle EYEBOTH SCH (23:42)
[2022-09-30] MEDS: hydrALAZINE 25 MG Tab PO SCH (23:42)
[2022-09-30] MEDS: atorvaSTATin 20 MG Tab PO SCH (23:42)
[2022-09-30] MEDS: Gabapentin 300 MG Cap PO SCH (23:42)
[2022-09-30] MEDS: Latanoprost 0.005% Ophth Soln 2.5 ML Bottle EYEBOTH SCH (23:43)
[2022-10-01] MEDS: Ondansetron 4 MG Tab.DIS PO PRN ×3 (00:43→23:53)
[2022-10-01] MEDS: Sodium Chloride 0.9% 1,000 ML IV SCH ×2 (05:15→13:34)
[2022-10-01] MEDS ORDERED: Omeprazole 20 MG Cap.CR PO SCH ×2 (06:00→08:00)
[2022-10-01] MEDS ORDERED: Insulin Glarg,Human.Rec.Analog 100 Unit/ML SUBCUT SCH (06:00)
[2022-10-01 07:06] LABS: ANION GAP 14.1 mEq/L (7-13)
[2022-10-01] MEDS: Gabapentin 300 MG Cap PO SCH ×3 (08:01→21:16)
[2022-10-01] MEDS ORDERED: Losartan 50 MG Tab PO SCH (09:00)
[2022-10-01] MEDS ORDERED: Ferrous Sulfate 325 MG Tab PO SCH (09:00)
[2022-10-01] MEDS: Insulin Glarg,Human.Rec.Analog 100 Unit/ML SUBCUT SCH (10:00)
[2022-10-01] MEDS: Timolol Maleate 0.5% Ophth Soln 5 ML Bottle EYEBOTH SCH ×2 (10:01→21:24)
[2022-10-01] MEDS: Brimonidine 0.2% Ophth Soln 5 ML Bottle EYEBOTH SCH ×2 (10:01→21:24)
[2022-10-01] MEDS: NIFEdipine 30 MG Tab.ER PO SCH (10:02)
[2022-10-01] MEDS: Metoprolol Succinate 50 MG Tab.ER PO SCH (10:03)
[2022-10-01] MEDS: hydrALAZINE 25 MG Tab PO SCH ×3 (10:04→21:15)
[2022-10-01] MEDS: Insulin Lispro 100 Units/ML 3 ML Vial SUBCUT SCH ×3 (10:11→17:26)
[2022-10-01] MEDS: metroNIDAZOLE/Normal Saline 500 MG in Premix Bag 100 BAG IV SCH (10:32)
[2022-10-01] MEDS: oxyCODONE 5 MG Tab PO PRN ×3 (10:51→18:32)
[2022-10-01] MEDS ORDERED: HYDROmorphone 1 MG/ML Syringe IVPUSH ONE (12:32)
[2022-10-01] MEDS ORDERED: HYDROmorphone 2 MG/ML Syringe ONE (12:34)
[2022-10-01] MEDS: Albumin Human 25 GM in Premix Bag 1 BAG IV SCH ×2 (14:07→21:11)
[2022-10-01] MEDS ORDERED: Levofloxacin/Dextrose 5%-Water 500 MG in Premix Bag 1 BAG IV ONE (16:00)
[2022-10-01] MEDS ORDERED: Sodium Bicarbonate 650 MG Tab PO STA ×2 (16:49→17:25)
[2022-10-01] MEDS ORDERED: Sodium Bicarbonate 650 MG Tab PO SCH (21:00)
[2022-10-01] MEDS: Ferrous Sulfate 325 MG Tab PO SCH (21:16)
[2022-10-01] MEDS: Heparin Sodium 5,000 Units/ML Vial SUBCUT SCH (21:16)
[2022-10-01] MEDS: atorvaSTATin 20 MG Tab PO SCH (21:16)
[2022-10-01] MEDS: metroNIDAZOLE/Normal Saline 500 MG in Premix Bag 1 BAG IV SCH (21:17)
[2022-10-01] MEDS: Latanoprost 0.005% Ophth Soln 2.5 ML Bottle EYEBOTH SCH (21:25)
[2022-10-01 23:40] LABS: ANION GAP 16.8 mEq/L (7-13)
[2022-10-02] MEDS: Albumin Human 25 GM in Premix Bag 1 BAG IV SCH ×2 (02:00→09:31)
[2022-10-02] MEDS: Ondansetron 4 MG Tab.DIS PO PRN ×3 (02:46→19:43)
[2022-10-02] MEDS: Sodium Chloride 0.9% 1,000 ML IV SCH ×2 (02:47→12:08)
[2022-10-02] MEDS: oxyCODONE 5 MG Tab PO PRN (02:52)
[2022-10-02] MEDS: Pantoprazole 40 MG Tab.CR PO SCH (05:37)
[2022-10-02] MEDS: Acetaminophen 325 MG Tab PO PRN ×3 (05:37→23:09)
[2022-10-02 06:57] LABS: ANION GAP 15.5 mEq/L (7-13)
[2022-10-02] MEDS: Insulin Lispro 100 Units/ML 3 ML Vial SUBCUT SCH ×3 (09:24→17:20)
[2022-10-02] MEDS: metroNIDAZOLE/Normal Saline 500 MG in Premix Bag 1 BAG IV SCH ×2 (09:25→21:07)
[2022-10-02] MEDS: Heparin Sodium 5,000 Units/ML Vial SUBCUT SCH ×2 (09:42→21:04)
[2022-10-02] MEDS: Ferrous Sulfate 325 MG Tab PO SCH ×2 (09:42→21:01)
[2022-10-02] MEDS: hydrALAZINE 25 MG Tab PO SCH ×3 (09:43→21:01)
[2022-10-02] MEDS: Sodium Bicarbonate 650 MG Tab PO SCH ×2 (09:43→21:00)
[2022-10-02] MEDS: Metoprolol Succinate 50 MG Tab.ER PO SCH (09:43)
[2022-10-02] MEDS: NIFEdipine 30 MG Tab.ER PO SCH (09:43)
[2022-10-02] MEDS: Timolol Maleate 0.5% Ophth Soln 5 ML Bottle EYEBOTH SCH ×2 (09:44→20:59)
[2022-10-02] MEDS: Brimonidine 0.2% Ophth Soln 5 ML Bottle EYEBOTH SCH ×2 (09:47→21:03)
[2022-10-02] MEDS: Gabapentin 100 MG Cap PO SCH ×2 (09:49→21:01)
[2022-10-02] MEDS: Insulin Glarg,Human.Rec.Analog 100 Unit/ML SUBCUT SCH (09:50)
[2022-10-02] MEDS: atorvaSTATin 20 MG Tab PO SCH (21:01)
[2022-10-02] MEDS: Latanoprost 0.005% Ophth Soln 2.5 ML Bottle EYEBOTH SCH (21:06)
[2022-10-03] MEDS: Pantoprazole 40 MG Tab.CR PO SCH (05:39)
[2022-10-03] MEDS: oxyCODONE 5 MG Tab PO PRN ×3 (05:40→14:08)
[2022-10-03] MEDS ORDERED: Sodium Chloride 0.9% 10 ML Syringe FLUSH PRN (06:14)
[2022-10-03 06:49] LABS: ANION GAP 16.2 mEq/L (7-13)
[2022-10-03] MEDS: Ferrous Sulfate 325 MG Tab PO SCH ×2 (08:34→21:07)
[2022-10-03] MEDS: Metoprolol Succinate 50 MG Tab.ER PO SCH (08:34)
[2022-10-03] MEDS: hydrALAZINE 25 MG Tab PO SCH ×3 (08:34→21:07)
[2022-10-03] MEDS: Gabapentin 100 MG Cap PO SCH ×2 (08:34→21:07)
[2022-10-03] MEDS: Heparin Sodium 5,000 Units/ML Vial SUBCUT SCH ×2 (08:35→21:04)
[2022-10-03] MEDS: NIFEdipine 30 MG Tab.ER PO SCH (08:35)
[2022-10-03] MEDS: Sodium Bicarbonate 650 MG Tab PO SCH ×2 (08:35→21:06)
[2022-10-03] MEDS: Insulin Lispro 100 Units/ML 3 ML Vial SUBCUT SCH ×3 (08:37→17:02)
[2022-10-03] MEDS: Timolol Maleate 0.5% Ophth Soln 5 ML Bottle EYEBOTH SCH ×2 (08:38→21:02)
[2022-10-03] MEDS: Brimonidine 0.2% Ophth Soln 5 ML Bottle EYEBOTH SCH ×2 (08:38→21:08)
[2022-10-03] MEDS ORDERED: Levofloxacin/Dextrose 5%-Water 250 MG in Premix Bag 1 BAG IV SCH (09:00)
[2022-10-03] MEDS: Albumin Human 25 GM in Premix Bag 1 BAG IV SCH ×3 (09:29→20:12)
[2022-10-03] MEDS ORDERED: Lidocaine 1% with EPINEPHrine 1:100,000 20 ML MDV INJECT ONE (10:11)
[2022-10-03] MEDS: metroNIDAZOLE/Normal Saline 500 MG in Premix Bag 1 BAG IV SCH ×2 (11:09→22:11)
[2022-10-03] MEDS: Acetaminophen 325 MG Tab PO PRN ×2 (11:54→21:06)
[2022-10-03] MEDS ORDERED: Naloxone 2 MG/2 ML Syringe ONE (17:37)
[2022-10-03] MEDS ORDERED: Naloxone 2 MG/2 ML Syringe IVPUSH ONE (17:45)
[2022-10-03] MEDS ORDERED: Albuterol/Ipratropium 3.0-0.5 MG/3 ML Neb Soln NEB PRN (17:52)
[2022-10-03] MEDS ORDERED: Dextrose 5%-0.9% NaCl 1,000 ML IV SCH (18:30)
[2022-10-03] MEDS ORDERED: metroNIDAZOLE/Normal Saline 0 ML ONE (20:27)
[2022-10-03] MEDS: atorvaSTATin 20 MG Tab PO SCH (21:05)
[2022-10-03] MEDS: Latanoprost 0.005% Ophth Soln 2.5 ML Bottle EYEBOTH SCH (21:15)
[2022-10-04] MEDS: Pantoprazole 40 MG Tab.CR PO SCH (05:02)
[2022-10-04] MEDS ORDERED: metroNIDAZOLE/Normal Saline 100 ML ONE (08:34)
[2022-10-04] MEDS: metroNIDAZOLE/Normal Saline 500 MG in Premix Bag 1 BAG IV SCH (08:42)
[2022-10-04] MEDS: NIFEdipine 30 MG Tab.ER PO SCH (08:44)
[2022-10-04] MEDS: hydrALAZINE 25 MG Tab PO SCH (08:45)
[2022-10-04] MEDS: Metoprolol Succinate 50 MG Tab.ER PO SCH (08:45)
[2022-10-04] MEDS: Gabapentin 100 MG Cap PO SCH (08:45)
[2022-10-04] MEDS: Sodium Bicarbonate 650 MG Tab PO SCH (08:45)
[2022-10-04] MEDS: Ferrous Sulfate 325 MG Tab PO SCH (08:45)
[2022-10-04] MEDS: Heparin Sodium 5,000 Units/ML Vial SUBCUT SCH (08:46)
[2022-10-04] MEDS: Timolol Maleate 0.5% Ophth Soln 5 ML Bottle EYEBOTH SCH (08:46)
[2022-10-04] MEDS: Insulin Lispro 100 Units/ML 3 ML Vial SUBCUT SCH ×2 (08:47→11:53)
[2022-10-04] MEDS: Brimonidine 0.2% Ophth Soln 5 ML Bottle EYEBOTH SCH (08:47)
[2022-10-04] MEDS ORDERED: diphenhydrAMINE 50 MG/ML SDV IV ONE (11:01)
[2022-10-04] MEDS ORDERED: Acetaminophen 325 MG Tab PO ONE (11:01)
[2022-10-04] MEDS ORDERED: Dexamethasone 4 MG/ML SDV IVPUSH ONE (11:01)
[2022-10-04 14:09] VITALS: BP 109/62; PULSE 78
== END 2022-10-04 14:06 | disposition left against medical advice (07) | DRG 871 ==
LOC: DL.ED 15:22 → DL.MS 19:07
PROVIDERS: ADMIT Internal Medicine; ATTEND Internal Medicine
DX: A41.9 Sepsis, unspecified organism (principal); E43 Unspecified severe protein-calorie malnutrition; G92.8 Other toxic encephalopathy; K61.0 Anal abscess; L02.215 Cutaneous abscess of perineum; K61.1 Rectal abscess; L02.31 Cutaneous abscess of buttock; E87.20 Acidosis, unspecified; E87.1 Hypo-osmolality and hyponatremia; L03.317 Cellulitis of buttock; L03.115 Cellulitis of right lower limb; N18.5 Chronic kidney disease, stage 5; I12.0 Hypertensive chronic kidney disease with stage 5 chronic kidney disease or end stage renal disease; E83.42 Hypomagnesemia; D63.1 Anemia in chronic kidney disease; I12.9 Hypertensive chronic kidney disease with stage 1 through stage 4 chronic kidney disease, or unspecified chronic kidney disease; E78.5 Hyperlipidemia, unspecified; E11.22 Type 2 diabetes mellitus with diabetic chronic kidney disease; H40.9 Unspecified glaucoma; H54.7 Unspecified visual loss; E11.65 Type 2 diabetes mellitus with hyperglycemia; K59.00 Constipation, unspecified; E11.21 Type 2 diabetes mellitus with diabetic nephropathy; E78.00 Pure hypercholesterolemia, unspecified; E11.649 Type 2 diabetes mellitus with hypoglycemia without coma; E11.42 Type 2 diabetes mellitus with diabetic polyneuropathy; Z91.14 Patient's other noncompliance with medication regimen; K21.9 Gastro-esophageal reflux disease without esophagitis; Z88.2 Allergy status to sulfonamides; Z79.4 Long term (current) use of insulin; Z88.8 Allergy status to other drugs, medicaments and biological substances; Z56.0 Unemployment, unspecified; Z98.890 Other specified postprocedural states; Z68.25 Body mass index [BMI] 25.0-25.9, adult; Z79.899 Other long term (current) drug therapy
CPT/HCPCS: 36415; 71045; 72192; 80053; 80305; 80307; 81001; 83605; 83735; 84443; 85025; 85610; 85730; 86140; 87040 ×2; J1170; J2405; J3370; J3475; J7050; 36430; 76770; 80048; 82040; 82947; 84100; 85014; 85018; 86850; 86900; 86901; 86920; 86922; 87070; 87205; 93971; 94640; 99233; 99238; A9270-GY; J1100; J1200; J1644; J1650; J1956; J2310; J3490; J7030; J7042; J7620-GY; P9016; P9047

== ENCOUNTER 2022-10-09 18:07 | Emergency (ER) | payer MEDICAID ==
[2022-10-09 18:20] LABS: ANION GAP 17.4 mEq/L (7-13)
[2022-10-09] MEDS ORDERED: 50% Dextrose in Water 50 ML Syringe IVPUSH PRN (18:30)
[2022-10-09] MEDS ORDERED: Glucagon,Human Recombinant 1 MG Vial IM PRN (18:30)
[2022-10-09] MEDS ORDERED: Insulin Regular, Human 100 Units/ML 3 ML Vial IV ONE (18:30)
[2022-10-09] MEDS ORDERED: Levofloxacin 500 MG Tab PO ONE (19:13)
[2022-10-09] MEDS ORDERED: metroNIDAZOLE 250 MG Tab PO ONE (19:16)
[2022-10-09 19:31] VITALS: BP 197/95; PULSE 101
== END 2022-10-09 19:53 | disposition home or self-care (01) ==
LOC: DL.ED 18:07
DX: L03.115 Cellulitis of right lower limb (principal); I12.0 Hypertensive chronic kidney disease with stage 5 chronic kidney disease or end stage renal disease; E11.65 Type 2 diabetes mellitus with hyperglycemia; E11.22 Type 2 diabetes mellitus with diabetic chronic kidney disease; N18.5 Chronic kidney disease, stage 5; E86.0 Dehydration; E78.00 Pure hypercholesterolemia, unspecified; K21.9 Gastro-esophageal reflux disease without esophagitis; Z88.2 Allergy status to sulfonamides; Z88.8 Allergy status to other drugs, medicaments and biological substances; Z79.4 Long term (current) use of insulin; Z79.899 Other long term (current) drug therapy; Z86.16 Personal history of COVID-19
CPT/HCPCS: 36415; 80053; 81001; 82947; 83605; 83735; 85025; 85379; 86140; 93971; 99285; A9270-GY; J1815-GY

== ENCOUNTER 2022-11-21 10:18 | Emergency (ER) | payer MEDICAID ==
[2022-11-21] MEDS ORDERED: Sodium Chloride 0.9% 10 ML Syringe FLUSH PRN (10:24)
[2022-11-21 11:00] VITALS: BP 188/90; PULSE 90
[2022-11-21 11:02] LABS: BASOPHILS PERCENT AUTO 0.6 % (0.0-1.0); EOSINOPHILS PERCENT AUTO 1.4 % (1.0-3.0); HEMOGLOBIN 9.5 g/dL (12.0-16.0); LYMPHOCYTES PERCENT AUTO 15.6 % (20.5-50.1); MEAN CORPUSCULAR HEMOGLOBIN 28.8 pg (27.0-34.0); MEAN CORPUSCULAR HGB CONC 31.7 g/dL (33.0-35.0); MEAN CORPUSCULAR VOLUME 90.9 fL (80-100); NEUTROPHILS PERCENT AUTO 78.4 % (42.2-75.2); PLATELET COUNT,PLT 377 10^3/uL (150-450); WHITE BLOOD CELL COUNT,WBC 8.5 10^3/uL (5.0-10.0)
[2022-11-21 11:22] LABS: B-TYPE NATRIURETIC PEPTIDE,BNP 929 pg/ml (0-100)
[2022-11-21 11:25] LABS: ALANINE AMINOTRANSFERASE,ALT 38 U/L (14-59); ALBUMIN 1.6 g/dL (3.4-5.0); ALKALINE PHOSPHATASE 184 U/L (46-116); ANION GAP 12.4 mEq/L (7-13); ASPARTATE AMNIOTRANSFERASE,AST 48 U/L (15-37); BILIRUBIN TOTAL 0.3 mg/dL (0.2-1.0); BLOOD UREA NITROGEN,BUN 34 mg/dL (7-18); BUN/CREATININE RATIO 8.4 (No establ ref range); CALCIUM 8.3 mg/dL (8.5-10.1); CARBON DIOXIDE,CO2 22 mmol/L (21-32); CHLORIDE,CL 107 mmol/L (98-107); CREATININE 4.05 mg/dL (0.55-1.02); EST CRCL DRUG DOSING (CG) 18.14 mL/min; GLUCOSE RANDOM 217 mg/dL (70-99); MAGNESIUM 1.8 mg/dL (1.8-2.4); PHOSPHORUS 5.1 mg/dL (2.6-4.7); POTASSIUM,K 4.4 mmol/L (3.5-5.1); PROTEIN TOTAL,TP 7.6 g/dL (6.4-8.2); SODIUM,NA 137 mmol/L (136-145)
[2022-11-21 11:26] LABS: A/G RATIO 0.27; ESTIMATED GFR 13 mL/min (>=60)
[2022-11-21 11:27] LABS: ETHANOL BLOOD MEDICAL < 3 mg/dL (0)
[2022-11-21 11:39] LABS: APPEARANCE,URINE CLEAR (CLEAR); BILIRUBIN,URINE NEGATIVE (NEGATIVE); COLOR,URINE YELLOW (YELLOW); GLUCOSE,URINE 250 (NEGATIVE); KETONES,URINE NEGATIVE (NEGATIVE); LEUKOCYTE ESTERASE,URINE NEGATIVE (NEGATIVE); NITRITE,URINE NEGATIVE (NEGATIVE); OCCULT BLOOD,URINE TRACE-INTACT (NEGATIVE); PH,URINE 6.5 (5.0-9.0); PROTEIN,URINE >=300 (NEGATIVE); UROBILINOGEN,URINE 0.2 mg/dL (0.2-1.0)
[2022-11-21] MEDS ORDERED: Bumetanide 1 MG/4 ML MDV IVPUSH ONE (11:46)
[2022-11-21 11:49] LABS: AMORPHOUS SEDIMENT,URINE RARE /HPF (NOT SEEN); BACTERIA,URINE RARE /HPF (0-FEW/HPF); EPITHELIAL CELLS,URINE FEW /HPF (NOT SEEN); MUCUS,URINE RARE /LPF (NOT SEEN); RBC,URINE 0-5 /HPF (0-5); WBC,URINE 0-5 /HPF (0-5/HPF)
== END 2022-11-21 12:22 | disposition home or self-care (01) ==
LOC: DL.ED 10:18
DX: I13.2 Hypertensive heart and chronic kidney disease with heart failure and with stage 5 chronic kidney disease, or end stage renal disease (principal); E11.22 Type 2 diabetes mellitus with diabetic chronic kidney disease; N18.6 End stage renal disease; I50.9 Heart failure, unspecified; E78.00 Pure hypercholesterolemia, unspecified; K21.9 Gastro-esophageal reflux disease without esophagitis; E11.21 Type 2 diabetes mellitus with diabetic nephropathy; E66.9 Obesity, unspecified; Z68.27 Body mass index [BMI] 27.0-27.9, adult; Z99.2 Dependence on renal dialysis; Z86.16 Personal history of COVID-19; Z88.2 Allergy status to sulfonamides; Z79.4 Long term (current) use of insulin; Z79.899 Other long term (current) drug therapy
CPT/HCPCS: 36415; 71045; 80053; 80307; 81001; 81025; 83735; 83880; 84100; 84484; 85025; 93005; 93010; 96374; 99285; 99285-25; J3490

== ENCOUNTER 2022-12-01 09:40 | Emergency (ER) | payer MEDICAID ==
[2022-12-01 09:49] VITALS: PULSE 86
[2022-12-01] MEDS ORDERED: Acetaminophen 500 MG Tab PO ONE (10:01)
[2022-12-01] MEDS ORDERED: Ondansetron 4 MG/2 ML SDV IVPUSH ONE (10:01)
[2022-12-01] MEDS: Sodium Chloride 0.9% 10 ML Syringe FLUSH PRN ×2 (10:14→11:52)
[2022-12-01 10:24] LABS: BASOPHILS PERCENT AUTO 0.7 % (0.0-1.0); HEMOGLOBIN 9.7 g/dL (12.0-16.0); LYMPHOCYTES PERCENT AUTO 15.6 % (20.5-50.1); MEAN CORPUSCULAR HEMOGLOBIN 28.7 pg (27.0-34.0); MEAN CORPUSCULAR HGB CONC 31.3 g/dL (33.0-35.0); MEAN CORPUSCULAR VOLUME 91.7 fL (80-100); NEUTROPHILS PERCENT AUTO 77.7 % (42.2-75.2); PLATELET COUNT,PLT 450 10^3/uL (150-450); RED BLOOD CELL COUNT 3.38 10^6/uL (4.2-5.4); WHITE BLOOD CELL COUNT,WBC 9.3 10^3/uL (5.0-10.0)
[2022-12-01 10:42] LABS: INR 0.9 (0.9-1.2); PROTHROMBIN TIME 9.6 SEC (9.0-12.0); PTT,PARTIAL THROMBOPLSTIN TIME 23.2 SEC (22.0-34.0)
[2022-12-01 10:44] LABS: ALANINE AMINOTRANSFERASE,ALT 29 U/L (14-59); ALBUMIN 1.8 g/dL (3.4-5.0); ALKALINE PHOSPHATASE 192 U/L (46-116); ANION GAP 13.6 mEq/L (7-13); ASPARTATE AMNIOTRANSFERASE,AST 27 U/L (15-37); B-TYPE NATRIURETIC PEPTIDE,BNP 923 pg/ml (0-100); BILIRUBIN TOTAL 0.2 mg/dL (0.2-1.0); BLOOD UREA NITROGEN,BUN 31 mg/dL (7-18); BUN/CREATININE RATIO 6.9 (No establ ref range); C-REACTIVE PROTEIN 2.2 mg/dL (0.0-0.9); CALCIUM 8.7 mg/dL (8.5-10.1); CARBON DIOXIDE,CO2 24 mmol/L (21-32); CHLORIDE,CL 107 mmol/L (98-107); CREATININE 4.52 mg/dL (0.55-1.02); EST CRCL DRUG DOSING (CG) 16.08 mL/min; GLUCOSE RANDOM 235 mg/dL (70-99); MAGNESIUM 1.9 mg/dL (1.8-2.4); PHOSPHORUS 5.9 mg/dL (2.6-4.7); POTASSIUM,K 4.6 mmol/L (3.5-5.1); SODIUM,NA 140 mmol/L (136-145)
[2022-12-01 10:45] LABS: A/G RATIO 0.29; ESTIMATED GFR 11 mL/min (>=60); ETHANOL BLOOD MEDICAL < 3 mg/dL (0)
[2022-12-01 10:47] LABS: LACTIC ACID 0.8 mmol/L (0.4-2.0)
[2022-12-01] MEDS ORDERED: Bumetanide 1 MG/4 ML MDV IVPUSH ONE (11:01)
[2022-12-01 11:33] LABS: APPEARANCE,URINE CLEAR (CLEAR); BILIRUBIN,URINE NEGATIVE (NEGATIVE); COLOR,URINE YELLOW (YELLOW); GLUCOSE,URINE 250 (NEGATIVE); KETONES,URINE NEGATIVE (NEGATIVE); LEUKOCYTE ESTERASE,URINE NEGATIVE (NEGATIVE); NITRITE,URINE NEGATIVE (NEGATIVE); OCCULT BLOOD,URINE TRACE-INTACT (NEGATIVE); PH,URINE 6.5 (5.0-9.0); PROTEIN,URINE >=300 (NEGATIVE); UROBILINOGEN,URINE 0.2 mg/dL (0.2-1.0)
[2022-12-01 11:35] LABS: BARBITURATES,URINE NEGATIVE (NEGATIVE); BENZODIAZEPINE,URINE NEGATIVE (NEGATIVE); MDMA (ECSTASY), URINE NEGATIVE (NEGATIVE); METHADONE,URINE NEGATIVE (NEGATIVE); METHAMPHETAMINES,URINE NEGATIVE (NEGATIVE); OPIATES,URINE NEGATIVE (NEGATIVE); TCA,URINE NEGATIVE (NEGATIVE)
[2022-12-01 11:36] LABS: AMPHETAMINES,URINE NEGATIVE (NEGATIVE); OXYCODONE,URINE POSITIVE (NEGATIVE); PHENCYCLIDINE,URINE NEGATIVE (NEGATIVE)
[2022-12-01 11:44] LABS: RBC,URINE 0-5 /HPF (0-5)
[2022-12-01 11:45] LABS: BACTERIA,URINE FEW /HPF (0-FEW/HPF); EPITHELIAL CELLS,URINE MODERATE /HPF (NOT SEEN); HYALINE CASTS,URINE RARE
[2022-12-01 12:23] VITALS: BP 133/86
== END 2022-12-01 12:34 | disposition home or self-care (01) ==
LOC: DL.ED 09:40
DX: R11.2 Nausea with vomiting, unspecified (principal); I12.9 Hypertensive chronic kidney disease with stage 1 through stage 4 chronic kidney disease, or unspecified chronic kidney disease; E11.22 Type 2 diabetes mellitus with diabetic chronic kidney disease; E11.40 Type 2 diabetes mellitus with diabetic neuropathy, unspecified; N18.9 Chronic kidney disease, unspecified; K21.9 Gastro-esophageal reflux disease without esophagitis; E66.9 Obesity, unspecified; Z86.16 Personal history of COVID-19; Z88.2 Allergy status to sulfonamides; Z88.8 Allergy status to other drugs, medicaments and biological substances; Z79.4 Long term (current) use of insulin; Z79.899 Other long term (current) drug therapy; Z68.27 Body mass index [BMI] 27.0-27.9, adult
CPT/HCPCS: 36415; 71045; 80053; 80305-QW; 80307; 81001; 83605; 83735; 83880; 84100; 85025; 85610; 85730; 86140; 93005; 93010; 96374; 96375; 99284; 99285-25; A9270-GY; J2405; J3490

== ENCOUNTER 2023-02-04 13:41 | Emergency (ER) | payer MEDICAID ==
[2023-02-04] MEDS ORDERED: Sodium Chloride 0.9% 10 ML Syringe FLUSH PRN (14:03)
[2023-02-04 14:21] LABS: BASOPHILS PERCENT AUTO 1.1 % (0.0-1.0); EOSINOPHILS PERCENT AUTO 3.8 % (1.0-3.0); HEMATOCRIT 32.2 % (37.0-47.0); LYMPHOCYTES PERCENT AUTO 26.1 % (20.5-50.1); MEAN CORPUSCULAR HEMOGLOBIN 27.6 pg (27.0-34.0); MEAN CORPUSCULAR HGB CONC 31.1 g/dL (33.0-35.0); MONOCYTES PERCENT AUTO 5.6 % (2-8); NEUTROPHILS PERCENT AUTO 63.4 % (42.2-75.2); PLATELET COUNT,PLT 278 10^3/uL (150-450); RED BLOOD CELL COUNT 3.62 10^6/uL (4.2-5.4); WHITE BLOOD CELL COUNT,WBC 6.7 10^3/uL (5.0-10.0)
[2023-02-04 14:44] LABS: PROTHROMBIN TIME 9.9 SEC (9.0-12.0)
[2023-02-04 14:56] LABS: ALBUMIN 1.6 g/dL (3.4-5.0); ANION GAP 13.3 mEq/L (7-13); BILIRUBIN TOTAL 0.3 mg/dL (0.2-1.0); BUN/CREATININE RATIO 6.4 (No establ ref range); CALCIUM 8.7 mg/dL (8.5-10.1); EST CRCL DRUG DOSING (CG) 11.38 mL/min; POTASSIUM,K 5.3 mmol/L (3.5-5.1); PROTEIN TOTAL,TP 7.5 g/dL (6.4-8.2)
[2023-02-04 14:58] LABS: A/G RATIO 0.27; CREATININE 5.5 mg/dL (0.55-1.02)
[2023-02-04 15:58] VITALS: BP 178/98; PULSE 73
== END 2023-02-04 15:54 | disposition left against medical advice (07) ==
LOC: DL.ED 13:41
DX: E87.5 Hyperkalemia (principal); I12.9 Hypertensive chronic kidney disease with stage 1 through stage 4 chronic kidney disease, or unspecified chronic kidney disease; E10.22 Type 1 diabetes mellitus with diabetic chronic kidney disease; N18.9 Chronic kidney disease, unspecified; N17.9 Acute kidney failure, unspecified; J44.9 Chronic obstructive pulmonary disease, unspecified; K21.9 Gastro-esophageal reflux disease without esophagitis; Z88.1 Allergy status to other antibiotic agents; Z88.2 Allergy status to sulfonamides; Z79.4 Long term (current) use of insulin; Z79.51 Long term (current) use of inhaled steroids; Z79.899 Other long term (current) drug therapy; Z86.16 Personal history of COVID-19; Z91.148 Patient's other noncompliance with medication regimen for other reason
CPT/HCPCS: 36415; 71045; 80053; 83880; 84484; 85025; 85610; 85730; 93005; 93010; 99284; 99285; J3490

== ENCOUNTER 2023-05-04 11:04 | Emergency (ER) | payer MEDICAID ==
[2023-05-04 11:00] LABS: BASOPHILS PERCENT AUTO 0.2 % (0.0-1.0); HEMATOCRIT 35.7 % (37.0-47.0); HEMOGLOBIN 11.1 g/dL (12.0-16.0); MEAN CORPUSCULAR HEMOGLOBIN 27.3 pg (27.0-34.0); MEAN CORPUSCULAR HGB CONC 31.1 g/dL (33.0-35.0); MEAN CORPUSCULAR VOLUME 87.9 fL (80-100); NEUTROPHILS PERCENT AUTO 70.8 % (42.2-75.2); PLATELET COUNT,PLT 281 10^3/uL (150-450); RED BLOOD CELL COUNT 4.06 10^6/uL (4.2-5.4); WHITE BLOOD CELL COUNT,WBC 6.2 10^3/uL (5.0-10.0)
[~2023-05-04 11:04] MED LIST: Labetalol 20 MG/4 ML Syringe IVPUSH ONE; Sodium Chloride 0.9% 10 ML Syringe FLUSH PRN
[2023-05-04 11:27] LABS: ALBUMIN 1.6 g/dL (3.4-5.0); ANION GAP 15.4 mEq/L (7-13); BILIRUBIN TOTAL 0.3 mg/dL (0.2-1.0); BUN/CREATININE RATIO 5.3 (No establ ref range); CALCIUM 7.9 mg/dL (8.5-10.1); EST CRCL DRUG DOSING (CG) 10.58 mL/min; POTASSIUM,K 4.4 mmol/L (3.5-5.1); PROTEIN TOTAL,TP 7.3 g/dL (6.4-8.2)
[2023-05-04 11:29] LABS: A/G RATIO 0.28; CREATININE 6.63 mg/dL (0.55-1.02)
[2023-05-04 11:57] LABS: APPEARANCE,URINE CLEAR (CLEAR); BILIRUBIN,URINE NEGATIVE (NEGATIVE); COLOR,URINE YELLOW (YELLOW); GLUCOSE,URINE 100 (NEGATIVE); KETONES,URINE NEGATIVE (NEGATIVE); LEUKOCYTE ESTERASE,URINE NEGATIVE (NEGATIVE); NITRITE,URINE NEGATIVE (NEGATIVE); OCCULT BLOOD,URINE TRACE-INTACT (NEGATIVE); PROTEIN,URINE >=300 (NEGATIVE); UROBILINOGEN,URINE 0.2 mg/dL (0.2-1.0)
[2023-05-04 12:09] LABS: BACTERIA,URINE RARE /HPF (0-FEW/HPF); EPITHELIAL CELLS,URINE RARE /HPF (NOT SEEN); MUCUS,URINE NOT SEEN /LPF (NOT SEEN); RBC,URINE 0-5 /HPF (0-5); WBC,URINE NOT SEEN /HPF (0-5/HPF)
[2023-05-04 14:49] VITALS: PULSE 79
[2023-05-04] MEDS ORDERED: NIFEdipine 30 MG Tab.ER PO ONE (18:20)
[2023-05-04] MEDS ORDERED: Acetaminophen 325 MG Tab PO ONE (18:21)
[2023-05-04 18:32] VITALS: BP 197/112
[2023-05-04] MEDS ORDERED: Loperamide 2 MG Cap PO ONE (19:20)
== END 2023-05-04 19:33 ==
LOC: DL.ED 11:04
DX: E11.65 Type 2 diabetes mellitus with hyperglycemia (principal); E11.22 Type 2 diabetes mellitus with diabetic chronic kidney disease; N18.6 End stage renal disease; I15.0 Renovascular hypertension; E78.00 Pure hypercholesterolemia, unspecified; E11.21 Type 2 diabetes mellitus with diabetic nephropathy; E66.9 Obesity, unspecified; Z68.29 Body mass index [BMI] 29.0-29.9, adult; Z86.16 Personal history of COVID-19; Z99.2 Dependence on renal dialysis; Z88.2 Allergy status to sulfonamides; Z79.4 Long term (current) use of insulin; Z79.899 Other long term (current) drug therapy
CPT/HCPCS: 36415; 80053; 81001; 85025; 96374; 99285; A9270; J3490

== ENCOUNTER 2023-06-22 14:56 | Inpatient (IN) | payer MEDICAID ==
[2023-06-22] MEDS ORDERED: Sodium Chloride 0.9% 10 ML Syringe FLUSH PRN (15:29)
[2023-06-22] MEDS ORDERED: Furosemide 100 MG/10 ML SDV IVPUSH ONE (15:30)
[2023-06-22 15:52] LABS: BASOPHILS PERCENT AUTO 0.2 % (0.0-1.0); HEMOGLOBIN 11.7 g/dL (12.0-16.0); LYMPHOCYTES PERCENT AUTO 18.5 % (20.5-50.1); MEAN CORPUSCULAR HEMOGLOBIN 26.6 pg (27.0-34.0); MEAN CORPUSCULAR HGB CONC 31.6 g/dL (33.0-35.0); MEAN CORPUSCULAR VOLUME 84.1 fL (80-100); MONOCYTES PERCENT AUTO 5.7 % (2-8); NEUTROPHILS PERCENT AUTO 72.6 % (42.2-75.2); PLATELET COUNT,PLT 263 10^3/uL (150-450)
[2023-06-22 16:17] LABS: PROTHROMBIN TIME 10.6 SEC (9.0-12.0); PTT,PARTIAL THROMBOPLSTIN TIME 27.4 SEC (22.0-34.0)
[2023-06-22 16:18] LABS: LACTIC ACID 1.1 mmol/L (0.4-2.0)
[2023-06-22 16:20] LABS: ALBUMIN 1.5 g/dL (3.4-5.0); ANION GAP 16.7 mEq/L (7-13); BILIRUBIN TOTAL 0.4 mg/dL (0.2-1.0); CALCIUM 7.6 mg/dL (8.5-10.1); CREATININE 12.17 mg/dL (0.55-1.02); EST CRCL DRUG DOSING (CG) 5.76 mL/min; MAGNESIUM 2.4 mg/dL (1.8-2.4); PHOSPHORUS 8.8 mg/dL (2.6-4.7); POTASSIUM,K 4.7 mmol/L (3.5-5.1); PROTEIN TOTAL,TP 7.7 g/dL (6.4-8.2)
[2023-06-22 16:35] LABS: A/G RATIO 0.24
[2023-06-22] MEDS ORDERED: hydrALAZINE 20 MG/ML SDV IVPUSH ONE (16:52)
[2023-06-22] MEDS ORDERED: Ondansetron 4 MG/2 ML SDV IV ONE (16:52)
[2023-06-22 16:53] LABS: APPEARANCE,URINE SLIGHTLY CLOUDY (CLEAR); BILIRUBIN,URINE NEGATIVE (NEGATIVE); COLOR,URINE YELLOW (YELLOW); GLUCOSE,URINE 250 (NEGATIVE); KETONES,URINE NEGATIVE (NEGATIVE); LEUKOCYTE ESTERASE,URINE NEGATIVE (NEGATIVE); NITRITE,URINE NEGATIVE (NEGATIVE); OCCULT BLOOD,URINE LARGE (NEGATIVE); PH,URINE 6.5 (5.0-9.0); PROTEIN,URINE >=300 (NEGATIVE); UROBILINOGEN,URINE 0.2 mg/dL (0.2-1.0)
[2023-06-22 17:21] LABS: BACTERIA,URINE FEW /HPF (0-FEW/HPF); EPITHELIAL CELLS,URINE MODERATE /HPF (NOT SEEN); RBC,URINE SEMI-PACKED /HPF (0-5); WBC,URINE 0-5 /HPF (0-5/HPF)
[2023-06-22] MEDS ORDERED: Nitroglycerin/D5W 25 MG/250 ML BOTTLE IV SCH (17:30)
[2023-06-22] MEDS ORDERED: Magnesium Hydroxide 400 MG/5 ML Susp 30 ML Cup PO PRN (18:53)
[2023-06-22] MEDS ORDERED: Acetaminophen 325 MG Tab PO PRN (18:53)
[2023-06-22] MEDS ORDERED: Ondansetron 4 MG/2 ML SDV IVPUSH PRN (18:53)
[2023-06-22] MEDS ORDERED: Sennosides/Docusate Sodium 50-8.6 MG Tab PO PRN (18:53)
[2023-06-22] MEDS ORDERED: Naloxone 2 MG/2 ML Syringe IVPUSH PRN (18:53)
[2023-06-22] MEDS ORDERED: Acetaminophen/oxyCODONE 325-5 MG Tab PO PRN (18:53)
[2023-06-22] MEDS ORDERED: HYDROmorphone 0.5 MG/0.5 ML Syringe IVPUSH PRN (18:53)
[2023-06-22] MEDS ORDERED: Polyethylene Glycol 3350 Powder 17 GM Packet PO PRN (18:53)
[2023-06-22] MEDS ORDERED: Albuterol/Ipratropium 3.0-0.5 MG/3 ML Neb Soln NEB PRN (18:53)
[2023-06-22] MEDS ORDERED: Calcium Carbonate 500 MG Tab.Chew PO ONE (18:59)
[2023-06-22] MEDS ORDERED: Sodium Bicarbonate 8.4% 50 MEQ/50 ML Syringe IV ONE (19:08)
[2023-06-22] MEDS ORDERED: Pantoprazole 40 MG Vial IVPUSH ONE (19:10)
[2023-06-22] MEDS ORDERED: Dextrose 5%-0.9% NaCl 1,000 ML IV SCH (19:15)
[2023-06-22] MEDS: Albumin Human 25 GM in Premix Bag 1 BAG IV SCH (19:46)
[2023-06-22] MEDS ORDERED: Acetaminophen/Butalbital/Caffeine 325-50-40 MG Tab PO PRN (21:12)
[2023-06-22] MEDS ORDERED: niCARdipine/Normal Saline 20 MG in Premix Bag 1 BAG IV SCH (21:15)
[2023-06-22] MEDS ORDERED: Metoprolol Tartrate 5 MG/5 ML SDV IVPUSH PRN (21:25)
[2023-06-22] MEDS ORDERED: hydrALAZINE 20 MG/ML SDV IVPUSH PRN (21:25)
[2023-06-22] MEDS ORDERED: cloNIDine 0.1 MG Tab PO ONE (21:27)
[2023-06-22] MEDS ORDERED: cloNIDine 0.1 MG/Day Transdermal Patch TRDERM SCH (21:30)
[2023-06-22 23:32] VITALS: BP 192/100; PULSE 99
[2023-06-23] MEDS: Albumin Human 25 GM in Premix Bag 1 BAG IV SCH (01:30)
[2023-06-23] MEDS ORDERED: Bumetanide 1 MG/4 ML MDV IVPUSH SCH (07:00)
[2023-06-23] MEDS ORDERED: Pantoprazole 40 MG Vial IVPUSH SCH (07:00)
[2023-06-23] MEDS ORDERED: Calcium Carbonate 500 MG Tab.Chew PO SCH (07:00)
== END 2023-06-23 02:40 | DRG 291 ==
LOC: DL.ED 14:56 → DL.MS 17:43 → DL.ED 18:01
PROVIDERS: ADMIT Internal Medicine; ATTEND Internal Medicine
DX: I13.2 Hypertensive heart and chronic kidney disease with heart failure and with stage 5 chronic kidney disease, or end stage renal disease (principal); N18.6 End stage renal disease; G93.49 Other encephalopathy; N04.9 Nephrotic syndrome with unspecified morphologic changes; J44.9 Chronic obstructive pulmonary disease, unspecified; E10.9 Type 1 diabetes mellitus without complications; E87.20 Acidosis, unspecified; Z79.899 Other long term (current) drug therapy; E87.70 Fluid overload, unspecified; Z86.16 Personal history of COVID-19; E78.5 Hyperlipidemia, unspecified; E11.42 Type 2 diabetes mellitus with diabetic polyneuropathy; K21.9 Gastro-esophageal reflux disease without esophagitis; E11.22 Type 2 diabetes mellitus with diabetic chronic kidney disease; E11.65 Type 2 diabetes mellitus with hyperglycemia; D63.1 Anemia in chronic kidney disease; E87.8 Other disorders of electrolyte and fluid balance, not elsewhere classified; E83.39 Other disorders of phosphorus metabolism; R31.9 Hematuria, unspecified; I50.9 Heart failure, unspecified; H40.9 Unspecified glaucoma; E78.00 Pure hypercholesterolemia, unspecified; K59.00 Constipation, unspecified; E66.9 Obesity, unspecified; Z90.49 Acquired absence of other specified parts of digestive tract; Z79.4 Long term (current) use of insulin; Z91.148 Patient's other noncompliance with medication regimen for other reason; Z98.890 Other specified postprocedural states; Z88.2 Allergy status to sulfonamides; Z56.0 Unemployment, unspecified
CPT/HCPCS: 36415; 71045; 80053; 81001; 82550; 83605; 83735; 83880; 84100; 84145; 84484; 85025; 85610; 85730; 93005; 93010; 99285; A9270-GY; C9113; J0360; J1170; J1940; J2305; J2405; J3490; J7042; P9047

== ENCOUNTER 2023-08-19 17:44 | Emergency (ER) | payer MEDICAID ==
[2023-08-19 17:55] VITALS: PULSE 76
[2023-08-19] MEDS ORDERED: Bumetanide 1 MG/4 ML MDV IVPUSH ONE (17:57)
[2023-08-19] MEDS ORDERED: Sodium Chloride 0.9% 10 ML Syringe FLUSH PRN (17:57)
[2023-08-19 18:12] LABS: BASOPHILS PERCENT AUTO 0.1 % (0.0-1.0); EOSINOPHILS PERCENT AUTO 1.1 % (1.0-3.0); HEMATOCRIT 30.6 % (37.0-47.0); MEAN CORPUSCULAR HEMOGLOBIN 25.6 pg (27.0-34.0); MEAN CORPUSCULAR HGB CONC 29.4 g/dL (33.0-35.0); MEAN CORPUSCULAR VOLUME 86.9 fL (80-100); MONOCYTES PERCENT AUTO 3.3 % (2-8); NEUTROPHILS PERCENT AUTO 89.5 % (42.2-75.2); PLATELET COUNT,PLT 181 10^3/uL (150-450); RED BLOOD CELL COUNT 3.52 10^6/uL (4.2-5.4); WHITE BLOOD CELL COUNT,WBC 15.1 10^3/uL (5.0-10.0)
[2023-08-19 18:26] LABS: MAGNESIUM 2.5 mg/dL (1.8-2.4); PHOSPHORUS 7.4 mg/dL (2.6-4.7)
[2023-08-19 19:27] VITALS: BP 177/95
[2023-08-19 19:27] LABS: ALBUMIN 1.5 g/dL (3.4-5.0); ANION GAP 20.9 mEq/L (7-13); BILIRUBIN TOTAL 0.5 mg/dL (0.2-1.0); BUN/CREATININE RATIO 5.8 (No establ ref range); CALCIUM 7.7 mg/dL (8.5-10.1); EST CRCL DRUG DOSING (CG) 4.9 mL/min; POTASSIUM,K 4.9 mmol/L (3.5-5.1); PROTEIN TOTAL,TP 6.8 g/dL (6.4-8.2)
[2023-08-19 19:29] LABS: A/G RATIO 0.28; CREATININE 14.84 mg/dL (0.55-1.02)
== END 2023-08-19 21:05 ==
LOC: DL.ED 17:44
DX: I13.0 Hypertensive heart and chronic kidney disease with heart failure and stage 1 through stage 4 chronic kidney disease, or unspecified chronic kidney disease (principal); N18.6 End stage renal disease; I50.9 Heart failure, unspecified; N04.9 Nephrotic syndrome with unspecified morphologic changes; R79.89 Other specified abnormal findings of blood chemistry; Z91.151 Patient's noncompliance with renal dialysis due to financial hardship; Z88.2 Allergy status to sulfonamides; Z79.4 Long term (current) use of insulin; Z79.899 Other long term (current) drug therapy
CPT/HCPCS: 36415; 71045; 80053; 83735; 83880; 84100; 84484; 85025; 93005; 93010; 96374; 99285; 99285-25; J3490

== ENCOUNTER 2023-08-31 15:50 | Emergency (ER) | payer MEDICAID ==
[2023-08-31 16:11] LABS: HEMATOCRIT 30.3 % (37.0-47.0); HEMOGLOBIN 9.1 g/dL (12.0-16.0); MEAN CORPUSCULAR HEMOGLOBIN 26.9 pg (27.0-34.0); MEAN CORPUSCULAR VOLUME 89.6 fL (80-100); PLATELET COUNT,PLT 310 10^3/uL (150-450); RED BLOOD CELL COUNT 3.38 10^6/uL (4.2-5.4); WHITE BLOOD CELL COUNT,WBC 13.2 10^3/uL (5.0-10.0)
[2023-08-31 16:21] LABS: BASOPHILS PERCENT AUTO 0.2 % (0.0-1.0); EOSINOPHILS PERCENT AUTO 1.2 % (1.0-3.0); LYMPHOCYTES PERCENT AUTO 9.2 % (20.5-50.1); MONOCYTES PERCENT AUTO 6.2 % (2-8); NEUTROPHILS PERCENT AUTO 83.2 % (42.2-75.2)
[2023-08-31 16:33] LABS: ALANINE AMINOTRANSFERASE,ALT 27 U/L (14-59); ALBUMIN 1.9 g/dL (3.4-5.0); ALKALINE PHOSPHATASE 193 U/L (46-116); ASPARTATE AMNIOTRANSFERASE,AST 47 U/L (15-37); BILIRUBIN TOTAL 0.4 mg/dL (0.2-1.0); BLOOD UREA NITROGEN,BUN 26 mg/dL (7-18); BUN/CREATININE RATIO 4.1 (No establ ref range); C-REACTIVE PROTEIN 1.68 ng/dL (<=0.50); CARBON DIOXIDE,CO2 30 mmol/L (21-32); CHLORIDE,CL 101 mmol/L (98-107); CREATININE 6.27 mg/dL (0.55-1.02); GLUCOSE RANDOM 145 mg/dL (70-99); MAGNESIUM 2.3 mg/dL (1.8-2.4); PROTEIN TOTAL,TP 7.9 g/dL (6.4-8.2); SODIUM,NA 138 mmol/L (136-145)
[2023-08-31 16:36] LABS: LACTIC ACID 1.1 mmol/L (0.4-2.0)
[2023-08-31 16:37] LABS: A/G RATIO 0.32; ESTIMATED GFR 8 mL/min (>=60); ETHANOL BLOOD MEDICAL < 3 mg/dL (0)
[2023-08-31 16:48] LABS: ANISOCYTOSIS 2+ MODERATE; LYMPHOCYTES PERCENT MAN 12 % (20-50); MONOCYTES PERCENT MAN 8 % (2-8); SEG NEUTROPHILS PERCENT MAN 80 % (42-75)
[2023-08-31 16:49] LABS: PLATELET COUNT ESTIMATE ADEQUATE; TARGET CELLS 1+ SLIGHT
[2023-08-31 17:04] LABS: INR 1.1 (0.9-1.2); PROTHROMBIN TIME 11.1 SEC (9.0-12.0)
[2023-08-31 17:24] LABS: APPEARANCE,URINE CLEAR (CLEAR); BILIRUBIN,URINE NEGATIVE (NEGATIVE); COLOR,URINE YELLOW (YELLOW); GLUCOSE,URINE 500 (NEGATIVE); KETONES,URINE NEGATIVE (NEGATIVE); LEUKOCYTE ESTERASE,URINE NEGATIVE (NEGATIVE); NITRITE,URINE NEGATIVE (NEGATIVE); OCCULT BLOOD,URINE SMALL (NEGATIVE); PH,URINE 7.5 (5.0-9.0); PROTEIN,URINE >=300 (NEGATIVE); UROBILINOGEN,URINE 0.2 mg/dL (0.2-1.0)
[2023-08-31 17:25] LABS: AMPHETAMINES,URINE NEGATIVE (NEGATIVE); BARBITURATES,URINE NEGATIVE (NEGATIVE); BENZODIAZEPINE,URINE NEGATIVE (NEGATIVE); MDMA (ECSTASY), URINE NEGATIVE (NEGATIVE); METHADONE,URINE NEGATIVE (NEGATIVE); METHAMPHETAMINES,URINE NEGATIVE (NEGATIVE); OPIATES,URINE NEGATIVE (NEGATIVE); OXYCODONE,URINE NEGATIVE (NEGATIVE); PHENCYCLIDINE,URINE NEGATIVE (NEGATIVE); TCA,URINE NEGATIVE (NEGATIVE)
[2023-08-31 17:51] LABS: BACTERIA,URINE MANY /HPF (0-FEW/HPF); EPITHELIAL CELLS,URINE FEW /HPF (NOT SEEN)
[2023-08-31 17:55] LABS: CORONAVIRUS COVID-19 NAA NEGATIVE (NEGATIVE); INFLUENZA A NAA NEGATIVE (NEGATIVE); INFLUENZA B NAA NEGATIVE (NEGATIVE)
[2023-08-31] MEDS: Sodium Chloride 0.9% 10 ML Syringe FLUSH PRN (18:09)
[2023-08-31] MEDS: Naloxone 2 MG/2 ML Syringe IVPUSH ONE (18:37)
[2023-08-31] MEDS: cefTRIAXone 2 GM Vial IVPUSH ONE (19:07)
[2023-08-31] MEDS: Azithromycin 250 MG Tab PO ONE (19:08)
[2023-08-31] MEDS ORDERED: Piperacillin/Tazobactam 2.25 GM in Sodium Chloride 0.9% 50 ML IV ONE (19:13)
[2023-08-31] MEDS: Piperacillin/Tazobactam 2.25 GM in Sodium Chloride 0.9% 100 ML IV ONE (19:29)
[2023-08-31] MEDS: Bacitracin Oint 1 GM U/D Packet TOP ONE (20:06)
[2023-08-31 21:52] VITALS: BP 175/98; PULSE 79
== END 2023-08-31 21:45 ==
LOC: DL.ED 15:50
DX: R56.9 Unspecified convulsions (principal); R46.89 Other symptoms and signs involving appearance and behavior; I10 Essential (primary) hypertension; E78.00 Pure hypercholesterolemia, unspecified; E10.9 Type 1 diabetes mellitus without complications; Z88.2 Allergy status to sulfonamides; Z86.16 Personal history of COVID-19; Z79.899 Other long term (current) drug therapy
CPT/HCPCS: 0240U; 36415; 70450; 71045; 80053; 80305; 80307; 81001; 82140; 83605; 83735; 83880; 85025; 85610; 86140; 93005; 96365; 96375; 99285; A9270; J0696; J2310; J2543; J3490